=== PATIENT | male | born 1945 | race Caucasian/White ===

== ENCOUNTER 2017-07-21 09:59 | Day surgery (SDC) | payer MEDICARE, OTHER, SELFPAY ==
[2017-07-14 11:10] VITALS: BP 116/66; PULSE 55; RESP 17; TEMP 36.8; O2SAT 98; BMI 25.7
--- NOTE | 2017-07-14 11:36 | RAD_ITS ---
STUDY: X-RAY CHEST REASON FOR EXAM: Male, 72 years old. Preoperative evaluation. Hypertension. TECHNIQUE: PA and lateral views of the chest. COMPARISON: Comparison is made with prior study dated March 07, 2013. FINDINGS: Stable mild degree of increased markings at the left base suggestive of scarring. There is no demonstrated pleural abnormality. Normal size heart. Normal mediastinum and tonie. Normal visualized pulmonary arteries. There is atherosclerotic calcification of the aortic arch with tortuosity. Mild loss of height of a lower dorsal vertebrae. Normal visualized ribs, clavicles, and shoulders. There is no demonstrated abnormality of the visualized soft tissue structures of the upper abdomen. RAD/Chest PA and Lateral IMPRESSION: Findings suggestive of mild linear scarring at the left lung base. Electronically Signed: Saurav Cisneros MD at 12:36 EST Tel [phone], Service support ,
--- NOTE | 2017-07-14 11:36 | SDCEKG_ITS ---
Test Reason : Blood Pressure : / mmHG Vent. Rate : 057 BPM Atrial Rate : 057 BPM P-R Int : 138 ms QRS Dur : 102 ms QT Int : 410 ms P-R-T Axes : 069 006 014 degrees QTc Int : 399 ms Sinus bradycardia Otherwise normal ECG Confirmed by TAMI JONES, JIMMIE ([id number]), assistant film editor ROBERTO GARDNER ([id number]) on 07/20/2017 8:46:49 AM Referred By: Bong Ghotra Confirmed By:JIMMIE GARRETT MD
[2017-07-14 12:05] LABS: Color, Urine Yellow (Yellow); Glucose, Dipstick Normal (Normal); Ketone-Dipstick Negative (Negative); Leukocyte Esterase-Dipstick 25 /ul (Negative); Nitrite-Dipstick Negative (Negative); Occult Blood-Urine 10 /ul (Negative); Protein-Dipstick Negative (Negative); Urine Bilirubin Dipstick Negative (Negative); Urine Clarity Clear (Clear); Urine Urobilinogen Normal (Normal)
[2017-07-14 12:06] LABS: Hematocrit 41.9 % (40-54); Hemoglobin 14.2 g/dl (13.0-16.5); Mean Corp Hgb Conc 33.9 g/gl (32-36); Mean Corpuscular Hgb 31.2 pg (27.0-32.0); Mean Corpuscular Volume 92.1 fL (80-94); Mean Platelet Vol. 10.2 fl (6.2-12.0); Platelet Count 264 K/mm3 (150-450); RBC Distribution Width SD 43.1 fl (35.1-43.9); Red Blood Count 4.55 M/mm3 (4.6-6.2); White Blood Count 9.1 K/mm3 (4.4-11.0)
[2017-07-14 12:08] LABS: Scan Indicated on CBC? Y/N NO
[2017-07-14 12:32] LABS: AST(SGOT) 13 U/L (15-37); Alanine Aminotransfer ALT/SGPT 36 U/L (16-61); Albumin, Serum 3.6 g/dL (3.2-5.0); Alkaline Phosphatase 95 U/L (45-117); Anion Gap 6 (5-15); BUN 19 mg/dL (7-18); BUN/Creat Ratio 22.3 RATIO (10-20); Calcium,Total 8.9 mg/dL (8.5-10.1); Chloride 103 mmol/L (98-107); Creatinine, Serum 0.85 mg/dL (0.70-1.30); EST Glomerular Filtration Rate 93 mL/min (>60); Est Glom Filt Rate - Afr Amer 113 mL/min (>60); Estimated Creatinine Clearance 71.28 ml/min; Globulin 3.7 g/dL (2.2-4.2); Glucose 120 mg/dL (70-110); Potassium 3.7 mmol/L (3.5-5.1); Protein, Total 7.3 g/dL (6.4-8.2); Sodium Level 139 mmol/L (136-145)
[2017-07-21] VITALS (11 sets, daily range): BP systolic 114–148; BP diastolic 60–92; PULSE 70–84; RESP 16–18; TEMP 36.3–36.8; O2SAT 89–96; BMI 25.7; BMI 25.0
--- NOTE | 2017-07-21 11:55 | PROS_PTH ---
PATIENT: RYAN BARTH [place] [facility] [place][id number] AGE/SX: 72/M ROOM: RE07/21/[address]: Dr. Bong Ghotra MD : 1945 BED: DIS: 07/22/2017 SPEC #: [id number] RECD: 07/22/17 08:23 STATUS: MARTHA HALLLudmila #: [id number] CONG: 07/21/17 11:[address]: Bong Ghotra DEPT: SURGICAL PATHOLOGY RECD BY: Ac Thakur ENTERED: 07/22/17 11:39 SP TYPE: TURP OTHR DR: Dr. Aiden Alvarado MD Tissues: Prostate, NOS Procedures: Surgery Specimen Level IV HEADER OPERATION: Cysto, TUR, prostate, Olympus PRE-OP DIAGNOSIS: benign prostatic hyperplasia TISSUE SUBMITTED: Prostate chips MICROSCOPIC DIAGNOSIS Prostate chips, TUR: Benign prostatic hyperplasia, glandular and stromal type. Focal chronic inflammation and basal cell hyperplasia. SJ:annelise 07/23/17 MICROSCOPIC DESCRIPTION Slides are reviewed. GROSS DESCRIPTION Received is one container labeled with the patient's name and designated prostate chips. The specimen consists of multiple irregular fragments of pink-castillo, rubbery, soft tissue that in aggregate weigh 24.8 gm and measure in aggregate 8 x 7 x 3 cm. Territory Development Manager tissue is submitted in 12 cassettes. / MIGEL:annelise 07/22/17 TC:5 CPT: 37086
[2017-07-21] MEDS: Cefazolin 2 GM in 0.9% Normal Saline 100 ML IV (11:58)
--- NOTE | 2017-07-21 13:19 | PCM.OPRPT ---
Problem List (1) BPH (benign prostatic hyperplasia) Status: Chronic Qualifiers: Lower urinary tract symptom presence: symptoms present Lower urinary tract symptom detail: straining on urination Qualified Code(s): N40.1 - Benign prostatic hyperplasia with lower urinary tract symptoms; R39.16 - Straining to void Report of Operation Date of Procedure: 07/21/17 Pre-Operative Diagnosis: BPH with obstruction Post-Operative Diagnosis: same Surgery/Procedure Performed:: Transurethral resection of the prostate Description of Surgical Findings:: 72-year-old male taken back to the operating room after smooth induction of general anesthesia he was placed in dorsal lithotomy position penis and testicles were prepped and draped in usual sterile fashion I used a 26 Malt[place] continuous flow Olympus resectoscope had to dilate the meatus a little bit at the resectoscope into the bladder and findings were that he had a very significantly of obstructive prostate had a very large median lobe large bilateral lobes with obstruction no tumors or stones within the bladder I then switched the the loop electrode into the resectoscope resected the median lobe first resected the right lobe of the prostate and resect the left of the prostate and resected the roof then came back and resected the apical tissue Ellik out all the chips smooth out the resection made sure that I had a good resection down to the Brit with no resection past the Brit sphincter was intact at the end of the resection resection time took about an hour and 10 minutes had good hemostasis and good control bleeding at the end of the catheter the bladder and continues bladder irrigation nice and clear the patient anesthetic was reversed taken at the PACU in good condition should end the dictation Type of Anesthesia:: General Drains: farias - Admit VTE Documentation VTE Present on Admission: No VTE Mechan Device Prophylaxis: SCD's VTE Pharm Prophylaxis ordered?: No
[2017-07-21] MEDS: Ipratropium 0.5 MG/2.5 ML SOLUTION INHALATION (19:40)
[2017-07-21] MEDS: Ciprofloxacin 500 MG Tablet PO (21:10)
[2017-07-22 04:13] VITALS: BP 119/70; PULSE 73; RESP 18; TEMP 37.1; O2SAT 95
[2017-07-22] MEDS: 0.9% Normal Saline 1,000 ML 75 ML IV (04:19)
--- NOTE | 2017-07-22 07:35 | PCM.DC.URO ---
Discharge Diet: Light diet - advance as tolerated Discharge Activity: Return to Normal Activity May shower in (days): 1 Call your doctor if your incision/area has: Continuous Slow Oozing, Sudden Increased Bleeding, Increased Pain/ Swelling, Increased Redness, Foul Smelling Discharge, Swelling at the incision site Call your doctor if you observe: Fever of 101 or Higher Suture Line Care: Avoid Pulling/Pushing, Avoid Pinching/Bending Instructions: Transurethral Resection of the Prostate (TURP): Home Recovery Allergies/Adverse Reactions: Allergies Sulfa (Sulfonamide Antibiotics) Allergy (Verified 07/14/17 11:03) Unknown oxycodone HCl [From Percocet] Adverse Reaction (Verified 07/14/17 11:03) Other Medications to take at Discharge Finasteride [Proscar] 5 mg PO DAILY 03/13/13 Timolol 0.25% [Timoptic] 1 drop RIGHT EYE BID 03/13/13 Tiotropium [place] [Spiriva 18 MCG] 1 puff INHALATION DAILY 03/13/13 Atorvastatin Calcium [Lipitor] 40 mg PO QHS 11/15/16 Brimonidine Tartrate/Timolol [Combigan Eye Drops] 1 drop LEFT EYE BID 11/15/16 Hydrochlorothiazide [Hctz] 25 mg PO DAILY 11/15/16 Calcium Carbonate/Vitamin D3 [Calcium 500-Vit D3 200 Tablet] 2 each PO DAILY 07/14/17 Lisinopril [Prinivil] 40 mg PO DAILY 07/14/17 Multivitamins,Therapeutic [Multivitamin] 1 tablet PO DAILY 07/14/17 Tamsulosin HCl [Flomax] 0.4 mg PO DAILY 07/14/17 Ciprofloxacin [Cipro] 500 mg PO BID #14 tab 07/22/17 The following prescriptions were given: Ciprofloxacin [Cipro] 500 mg PO BID #14 tab Primary Care Physician: Aiden Alvarado MD [Primary Care Provider] - Please Follow Up With: Bong Ghotra MD When: Aug 05 at 8:45 am
--- NOTE | 2017-07-22 07:38 | DCINST_ITS ---
Discharge Diet: Light diet - advance as tolerated Discharge Activity: Return to Normal Activity May shower in (days): 1 Call your doctor if your incision/area has: Continuous Slow Oozing, Sudden Increased Bleeding, Increased Pain/ Swelling, Increased Redness, Foul Smelling Discharge, Swelling at the incision site Call your doctor if you observe: Fever of 101 or Higher Suture Line Care: Avoid Pulling/Pushing, Avoid Pinching/Bending Instructions: Transurethral Resection of the Prostate (TURP): Home Recovery Allergies/Adverse Reactions: Allergies Sulfa (Sulfonamide Antibiotics) Allergy (Verified 07/14/17 11:03) Unknown oxycodone HCl [From Percocet] Adverse Reaction (Verified 07/14/17 11:03) Other Medications to take at Discharge Finasteride [Proscar] 5 mg PO DAILY 03/13/13 Timolol 0.25% [Timoptic] 1 drop RIGHT EYE BID 03/13/13 Tiotropium [place] [Spiriva 18 MCG] 1 puff INHALATION DAILY 03/13/13 Atorvastatin Calcium [Lipitor] 40 mg PO QHS 11/15/16 Brimonidine Tartrate/Timolol [Combigan Eye Drops] 1 drop LEFT EYE BID 11/15/16 Hydrochlorothiazide [Hctz] 25 mg PO DAILY 11/15/16 Calcium Carbonate/Vitamin D3 [Calcium 500-Vit D3 200 Tablet] 2 each PO DAILY Lisinopril [Prinivil] 40 mg PO DAILY 07/14/17 Multivitamins,Therapeutic [Multivitamin] 1 tablet PO DAILY 07/14/17 Tamsulosin HCl [Flomax] 0.4 mg PO DAILY 07/14/17 Ciprofloxacin [Cipro] 500 mg PO BID #14 tab 07/22/17 The following prescriptions were given: Ciprofloxacin [Cipro] 500 mg PO BID #14 tab Primary Care Physician: Adien Alvarado MD [Primary Care Provider] - Please Follow Up With: Bong Ghotra MD When: Aug 05 at 8:45 am
[2017-07-22 07:56] VITALS: PULSE 87; RESP 18
[2017-07-22] MEDS: Ipratropium 0.5 MG/2.5 ML SOLUTION INHALATION (07:56)
[2017-07-22] MEDS: Calcium Carb/Vitamin D 1 TABLET Tablet 2 TABLET PO (08:53)
[2017-07-22] MEDS: Multivitamins,Therapeutic Tablet 1 TABLET PO (08:53)
[2017-07-22 09:00] VITALS: BP 155/81; PULSE 92; RESP 18; TEMP 37; O2SAT 95
[2017-07-22] MEDS: Ciprofloxacin 500 MG Tablet PO (09:01)
[2017-07-22] MEDS: Pantoprazole Sodium 40 MG Tablet PO (09:01)
[2017-07-22] MEDS: Docusate Sodium 100 MG Capsule PO (09:01)
[2017-07-22] MEDS: Lisinopril 40 MG Tablet PO (09:01)
[2017-07-22] MEDS: hydroCHLOROthiazide 25 MG Tablet PO (09:01)
== END 2017-07-22 11:04 | disposition home or self-care (01) ==
LOC: SDC 10:00 → AC 10:01 → MS3 14:19
PROVIDERS: Family Provider Family Medicine; PCP Family Medicine; Visit Provider Urology
PROC: (CPT 52630; principal; 2017-07-21 11:45)
DX: N40.1 Benign prostatic hyperplasia with lower urinary tract symptoms (principal); R39.11 Hesitancy of micturition; R33.8 Other retention of urine; R39.16 Straining to void; I10 Essential (primary) hypertension; J44.9 Chronic obstructive pulmonary disease, unspecified; E78.00 Pure hypercholesterolemia, unspecified; Z87.891 Personal history of nicotine dependence; Z79.899 Other long term (current) drug therapy
CPT/HCPCS: 52630; 80053; 81002; 85027; 88305; 94640; J7030; J7120; J2405

== ENCOUNTER 2019-10-09 17:35 | Emergency (ER) | payer MEDICARE, OTHER, SELFPAY ==
[2017-07-21 18:45] VITALS: BMI 25.0
[2019-10-09 17:35] VITALS: BP 155/73; PULSE 81; RESP 18; TEMP 36.6; O2SAT 97; BMI 33.3
--- NOTE | 2019-10-09 17:49 | ED.VIS.GEN ---
History of Present Illness Chief Complaint: Laceration Informant: Patient Onset: Today Context: Sudden Onset Timing: Continuous Current Severity: Moderate Maximum Severity: Moderate Narrative: The patient is a cvizm-gvpa-rpxdcrlo male with up-to-date tetanus that presents to the emergency department with foreign body in his arm. Patient states he was doing work in his garden. He was using heavy machinery and he lost his balance. He try to catch himself with an outstretched right hand, and ended up getting some wood chips embedded into his arm. He was seen at the urgent care and they were able to remove 2 chips. However, there was one that was more deep. He denies any tingling or numbness in the hand. He denies other injury. He is otherwise been in his normal state of health. Prior similar symptoms: No Recent Illness/Hospitalization: No Past Medical History - Allergies and Home Meds Allergies/Adverse Reactions: Allergies Sulfa (Sulfonamide Antibiotics) Allergy (Verified 10/09/19 17:38) Unknown oxycodone HCl [From Percocet] Adverse Reaction (Verified 10/09/19 17:38) Other Primary Care Physician: Aiden Alvarado MD [Primary Care Provider] - Prior records reviewed: Yes Surgical History: adenoidectomy Smoking Status: Former smoker Review of Systems General: Denies: Chills, Fever, Sweats Eyes: Denies: Visual changes - bilaterally, Diplopia ENT: Denies: Rhinorrhea, Sore throat Cardiovascular: Denies: Chest pain, Palpitations Respiratory: Denies: Dyspnea, Cough, Dyspnea on exertion Gastrointestinal: Denies: Abdominal pain, Nausea, Vomiting, Diarrhea, Melena, Hematochezia Genitourinary: Denies: Dysuria, Hematuria, Frequency Musculoskeletal: Denies: Back pain, Extremity Pain Skin: Denies: Rash, Wounds Neurological: Denies: Headache, Weakness, Numbness Physical Exam Vital Signs/Narrative: Vital Signs Temp Pulse Resp BP Pulse Ox 10/09/19 17:35 97.8 F 81 18 155/73 H 97 Diagnostic/Tx/Re-eval - Medical Decision Making The patient presents retained foreign body in the forearm after a fall. He was sent over from urgent care. His tetanus is already up-to-date. He has normal pulses and sensation in the hand. The area was cleansed with chlorhexidine. It was anesthetized with 4 cc of 1% lidocaine with epinephrine. The wound was explored under bloodless field. I was able to remove the 2 cm fragment of wood. The wound was aggressively irrigated and reexplored. There is no evidence of retained foreign body. The patient will be placed on Keflex. He is counseled that if this is worsening or he has any increased pain or no improvement over the next 24 to 48 hours to return to the emergency department. I would not close this given the retained foreign body. He is comfortable with this plan of care. Impression 1. 2 cm forearm laceration 2. Foreign body removal from right forearm ED Disposition - Plan for ED Patient: Instructions: ED Foreign Body Soft Tissue Removed, ED Laceration Old Not Sutr Prescriptions: Cephalexin [Keflex] 500 mg PO Q6 #40 cap Prescription Printed Referrals: Aiden Alvarado MD [Primary Care Provider] -
[2019-10-09] MEDS: Cephalexin 250 MG Capsule 500 MG PO (18:33)
== END 2019-10-09 18:34 | disposition home or self-care (01) ==
LOC: ED 18:20
PROVIDERS: Emergency Provider Emergency Medicine; PCP Family Medicine
DX: S51.821A Laceration with foreign body of right forearm, initial encounter (principal); Z87.891 Personal history of nicotine dependence; W26.8XXA Contact with other sharp object(s), not elsewhere classified, initial encounter; W45.8XXA Other foreign body or object entering through skin, initial encounter; Y93.H2 Activity, gardening and landscaping; Y92.007 Garden or yard of unspecified non-institutional (private) residence as the place of occurrence of the external cause; Y99.8 Other external cause status
CPT/HCPCS: 99284

== ENCOUNTER 2021-08-21 16:25 | Emergency (ER) | payer MEDICARE, OTHER, SELFPAY ==
[2021-08-21 16:26] VITALS: BP 129/68; PULSE 81; RESP 16; TEMP 36.3; O2SAT 97; BMI 27.0
[2021-08-21 16:32] VITALS: BP 129/68; PULSE 80; RESP 16; TEMP 36.3; O2SAT 97
--- NOTE | 2021-08-21 16:41 | EX.ED.DYSGE1 ---
HPI History of Present Illness Chief Complaint: Alt LOC Detail of Chief Complaint: Increase to altered consciousness and aggressive behavior Informant: SNF Limited: dementia (Normally orientation is 0 or person only) Onset/Context/Timing Onset: Today Context: Sudden Onset Timing: Intermittent Quality: Patient is polite. Able to direct easily. Location: Presents from nursing facility Current Severity: Patient cooperative and follows simple requests that were made by me and nu Maximum Severity: Unknown Worsened by: Unknown Relieved by: Unknown Associated Symptoms Associated Symptoms: Unable to determine Narrative Narrative: Patient is a 76-year-old male with significant dementia who was sent to the emergency department because of aggressive behavior and altered level of consciousness. He is normally oriented to person only at best. At times he does not even know his name. Patient's thought content is not related to any questions asked. Per documentation that accompanied patient from nursing facility this is not abnormal or new. Prior similar symptoms: No (Unable to determine) Recent Illness/Hospitalization: No [facility] Medical History (Updated 08/21/21 @ 17:[address] Bridger Rodriguez MD) Abnormal findings on diagnostic imaging of heart/coronary circulation Basal cell carcinoma (BCC) of antihelix of ear Benign neoplasm of colon Benign prostatic hyperplasia with lower urinary tract symptoms Bursitis of right shoulder Carpal tunnel syndrome, left upper limb Chronic bronchitis COPD (chronic obstructive pulmonary disease) Dementia Diverticulitis large intestine w/o perforation or abscess w/bleeding Essential hypertension Falls Gastrointestinal hemorrhage Glaucoma Hyperlipemia Mild cognitive impairment Restlessness and agitation Home Medications atorvastatin 40 mg PO QHS 11/15/16 [History Last Taken Unknown] brimonidine-timolol [Combigan Eye Drops] 1 drp LEFT EYE BID 11/15/16 [History Last Taken Unknown] lisinopril [Prinivil] 40 mg PO DAILY 07/14/17 [History Last Taken 07/21/17] amlodipine 5 mg PO DAILY 08/21/21 [History Last Taken Unknown] citalopram 10 mg PO DAILY 08/21/21 [History Last Taken Unknown] donepezil mg 08/21/21 [History Last Taken Unknown] lorazepam 0.5 mg PO DAILY PRN PRN 08/21/21 [History Last Taken Unknown] Allergy/AdvReac Type Severity Reaction Status Date / Time Sulfa (Sulfonamide Allergy Unknown Verified 08/21/21 16:59 Antibiotics) oxycodone HCl [From Percocet] AdvReac Other Verified 08/21/21 16:59 Social History (Updated 08/21/21 @ 16:[address] Bridger Rodriguez MD) household members: none housing: shelter Smoking Status: Unknown if ever smoked details: Unable to determine substance use type: unknown ROS ROS ED Review of Systems ROS Unobtainable: due to mental status EXAM Physical Exam Const Vital Signs: 08/21/21 16:26 08/21/21 16:32 Temperature 97.3 F L 97.3 F L Temperature Source Temporal Temporal Pulse Rate 81 80 Respiratory Rate 16 16 Blood Pressure 129/68 H 129/68 H Blood Pressure Mean 88 88 Pulse Ox 97 97 Oxygen Delivery Method Room Air Room Air Positive well nourished and well developed General Appearance ED: well developed, NAD and other Pain and has feces lower back buttocks area both lower extremities and covering his shoes ; Negative for pallor HEENT Reports TM's clear and dry mucous membranes Negative for trauma or tenderness Tympanic Membrane ED: Yes TM's clear Mouth ED: Yes dry mucous membranes Mouth: dry mucous membranes Eyes PERRL and EOMs intact bilaterally General Eye ED: Negative for pale conjunctiva or scleral icterus Neck no lymphadenopathy, supple and no JVD Chest Wall inspection of chest normal and palpation of chest normal Resp normal respiratory effort and clear to auscultation bilaterally Cardio regular rate, regular rhythm, S1 normal heart sound, S2 normal heart sound and no murmurs GI normal to inspection, nondistended, normoactive bowel sounds and non-tender Palpation: soft Back/Spine no CVA tenderness Extremity Negative for normal to inspection General Extremety ED: Yes edema; Negative for tenderness General Extremity: edema Neuro No oriented x3 and CN's II-XII intact bilaterally Sensorium / Orientation: alert Psych mental status grossly normal Skin General Skin Exam: Negative for jaundice or pallor MDM MDM MDM Narrative Medical decision making narrative: Contacted case management regarding potential psychiatric care in light of him being DNR comfort care only. There is a signed document from the nursing facility that he is DNR comfort care only not DNR Comfort Care arrest. Patient presently is pleasant cooperative. And since he is covered with feces and this is not normal for him we will do a small metabolic infectious work-up which will include a CBC, electrolyte panel and UA to determine if this is the cause of his altered sensorium from baseline. Patient's was in the examination room. She was informed of his results. Patient is very polite cooperative. He shook my hand with prior to walking out of the room. Since there is no metabolic infectious abnormality and patient's been pleasant polite cooperative will discharge back to the nursing facility. Lab Data Attestation: I reviewed the patient's lab results. Lab results narrative: White count, H&H and differential are unremarkable. Neutrophil percent is 76 which is slightly elevated. Basic metabolic panel visit elevated CO2, which she has had in the past and would not explain his behavior. Would expect somnolence and not him being alert and responsive. Urinalysis is unremarkable as well. Labs: Laboratory Results - last 24 hr 08/21/21 08/21/21 08/21/21 16:40 16:40 16:45 WBC 9.6 RBC 4.30 L Hgb 13.1 Hct 39.9 L MCV 92.8 MCH 30.5 MCHC 32.8 RDW Std Deviation 45.8 H RDW Coeff of Jj 13.5 Plt Count 261 MPV 10.7 Immature Gran % (Auto) 0.400 Neut % (Auto) 76.3 H Lymph % (Auto) 7.9 L Weld % (Auto) 7.5 Eos % (Auto) 7.5 H Baso % (Auto) 0.4 Absolute Neuts (auto) 7.4 Absolute Lymphs (auto) 0.76 L Nucleated RBC % 0 Sodium 140 Potassium 3.9 Chloride 102 Carbon Dioxide 35.0 H Anion Gap 3 L BUN 16 Creatinine 0.87 Estim Creat Clear Calc 60.87 Est GFR (MDRD) Af Amer 109 Est GFR (MDRD) Non-Af 90 BUN/Creatinine Ratio 18.4 Glucose 113 H Calcium 8.5 Urine Color Yellow Urine Clarity Clear Urine pH 6.0 Ur Specific [place] 1.020 Urine Protein Negative Urine Glucose (UA) Normal Urine Ketones Negative Urine Occult Blood Negative Urine Nitrite Negative Urine Bilirubin Negative Urine Urobilinogen Normal Ur Leukocyte Esterase Negative Urine RBC 0 SEEN Urine WBC 0 SEEN Ur Squamous Epith Cells 0-5 SEEN Urine Bacteria 0 SEEN Urine Mucus 0 SEEN Discharge Plan Triage Chief Complaint: Alt LOC ED Provider: Bridger Rodriguez Dx/Rx/DC Orders Clinical Impression: Acute on chronic alteration in mental status, Dementia Instructions: ED ALOC Prescriptions: No Action atorvastatin 40 MG tablet 40 mg PO QHS RF: 0 brimonidine-timolol [Combigan] 1 DROP bottle 1 drp Left Eye BID RF: 0 lisinopril [Prinivil] 10 MG tablet 40 mg PO DAILY RF: 0 amlodipine 5 mg tablet 5 mg PO DAILY RF: 0 citalopram 10 mg tablet 10 mg PO DAILY RF: 0 donepezil 10 mg tablet RF: 0 lorazepam 0.5 mg tablet 0.5 mg PO DAILY PRN PRN (Reason: Agitation) RF: 0 Primary Care Provider: Loren Major Referrals: Loren Major MD [Primary Care Provider] - As Needed Disposition Disposition: Custodial Facility
[2021-08-21 16:51] LABS: Absolute Lymphocyte Count 0.76 X10^3/uL (0.83-4.51); Absolute Neutrophil Count 7.4 X10^3/uL (2.0-7.7); Basophil# 0.04 X10^3/uL; Basophil% 0.4 % (0-1); Eosinophil# 0.72 X10^3/uL; Eosinophils% 7.5 % (0-5); Hematocrit 39.9 % (40-54); Hemoglobin 13.1 g/dL (13.0-16.5); Lymphocyte # 0.76 X10^3/ul (0.83-4.51); Lymphocyte % 7.9 % (19-41); Mean Corp Hgb Conc 32.8 g/dL (32-36); Mean Corpuscular Hgb 30.5 pg (27.0-32.0); Mean Corpuscular Volume 92.8 fL (80-94); Mean Platelet Vol. 10.7 fl (6.2-12.0); Monocyte# 0.72 X10^3/uL; Monocyte% 7.5 % (0-10); NRBC Flagged by Analyzer 0 % (0-5); Neutrophil # 7.35 X10^3/uL (2.7-7.7); Neutrophil % 76.3 % (47-70); Platelet Count 261 K/mm3 (150-450); RBC Distribution Width CV 13.5 % (11.6-14.6); RBC Distribution Width SD 45.8 fl (35.1-43.9); White Blood Count 9.6 K/mm3 (4.4-11.0)
[2021-08-21 16:54] LABS: Bacteria 0 SEEN /hpf (None Seen); Mucous, Urine 0 SEEN /hpf (<or=2+); Red Blood Cells-Urine 0 SEEN /hpf (0-5); White Blood Cells 0 SEEN /hpf (0-5)
[2021-08-21 16:57] LABS: Color, Urine Yellow (Yellow); Glucose, Dipstick Normal (Normal); Ketone-Dipstick Negative (Negative); Leukocyte Esterase-Dipstick Negative /ul (Negative); Nitrite-Dipstick Negative (Negative); Occult Blood-Urine Negative /ul (Negative); Protein-Dipstick Negative (Negative); Urine Bilirubin Dipstick Negative (Negative); Urine Clarity Clear (Clear); Urine Urobilinogen Normal (Normal)
[2021-08-21 17:03] LABS: Squamous Epithelial Cells - UA 0-5 SEEN /hpf (0-5)
[2021-08-21 17:08] LABS: Anion Gap 3 (5-15); BUN 16 mg/dL (7-18); BUN/Creat Ratio 18.4 RATIO (10-20); Calcium,Total 8.5 mg/dL (8.5-10.1); Chloride 102 mmol/L (98-107); Creatinine, Serum 0.87 mg/dL (0.70-1.30); EST Glomerular Filtration Rate 90 mL/min (>60); Est Glom Filt Rate - Afr Amer 109 mL/min (>60); Estimated Creatinine Clearance 60.87 ml/min; Glucose 113 mg/dL (74-106); Potassium 3.9 mmol/L (3.5-5.1); Sodium Level 140 mmol/L (136-145)
--- NOTE | 2021-08-21 17:36 | NURSING ---
CALLED [facility], ETA 90 MIN
--- NOTE | 2021-08-21 17:40 | CM.ED ---
LV called [facility] and spoke to admissions staff regarding if they could take a patient for psych that is DNRCC. Staff at [facility] advised that they do take patient's with DNR CC. advised. Patient is unable to be interviewed due to current dementia. Patient has been calm and cooperative while in the ED per MD. LV called [facility] and spoke to BELIA Herrera. Advised patient has been calm at the ED and we are sending him back in approximately 90 minutes. Carmen BRODERICK
[2021-08-21 18:36] VITALS: BP 148/81; PULSE 62; RESP 16; TEMP 36.4; O2SAT 95
[2021-08-21 18:37] VITALS: BP 148/81; PULSE 77; RESP 16; TEMP 36.6; O2SAT 95
== END 2021-08-21 18:50 | disposition skilled nursing facility (03) ==
PROVIDERS: Emergency Provider Emergency Medicine; PCP Family Medicine; Visit Provider Emergency Medicine
DX: R40.4 Transient alteration of awareness (principal); F03.90 Unspecified dementia, unspecified severity, without behavioral disturbance, psychotic disturbance, mood disturbance, and anxiety; I10 Essential (primary) hypertension; E78.5 Hyperlipidemia, unspecified; Z79.899 Other long term (current) drug therapy
CPT/HCPCS: 80048; 81001; 85025; 99284; A4216

== ENCOUNTER → 2021-08-22 | Outpatient (REF) | payer MEDICARE, OTHER, SELFPAY ==
[2021-08-22 07:56] LABS: Hematocrit 36.7 % (40-54); Hemoglobin 11.9 g/dL (13.0-16.5); Mean Corp Hgb Conc 32.4 g/dL (32-36); Mean Corpuscular Hgb 29.5 pg (27.0-32.0); Mean Corpuscular Volume 91.1 fL (80-94); Mean Platelet Vol. 10.6 fl (6.2-12.0); Platelet Count 253 K/mm3 (150-450); RBC Distribution Width CV 13.6 % (11.6-14.6); RBC Distribution Width SD 45.6 fl (35.1-43.9); Red Blood Count 4.03 M/mm3 (4.6-6.2); White Blood Count 6.4 K/mm3 (4.4-11.0)
[2021-08-22 08:07] LABS: AST(SGOT) 13 U/L (15-37); Alanine Aminotransfer ALT/SGPT 17 U/L (16-61); Albumin, Serum 3.4 g/dL (3.2-5.0); Alkaline Phosphatase 112 U/L (45-117); Anion Gap 3 (5-15); BUN 13 mg/dL (7-18); BUN/Creat Ratio 16.2 RATIO (10-20); Calcium,Total 8.9 mg/dL (8.5-10.1); Chloride 107 mmol/L (98-107); Cholesterol 105 mg/dL (200); EST Glomerular Filtration Rate 99 mL/min (>60); Est Glom Filt Rate - Afr Amer 120 mL/min (>60); Globulin 3.5 g/dL (2.2-4.2); Glucose 105 mg/dL (74-106); High Density Lipoprotein 43 mg/dL; Potassium 3.7 mmol/L (3.5-5.1); Protein, Total 6.9 g/dL (6.4-8.2); Sodium Level 142 mmol/L (136-145); Triglycerides 42 mg/dL; Very Low Density Lipoprotein 8 mg/dL (5-40)
== END | disposition home or self-care (01) ==
LOC: OLS.BROOKB 05:00
PROVIDERS: PCP Family Medicine; Visit Provider Family Medicine
DX: I10 Essential (primary) hypertension (principal)
CPT/HCPCS: 36415; 80053; 80061; 85027

== ENCOUNTER 2021-09-02 09:25 | Emergency (ER) | payer MEDICARE, OTHER, SELFPAY ==
[2021-09-02 09:26] VITALS: BP 142/76; PULSE 72; RESP 21; TEMP 36.3; O2SAT 98; BMI 27.1
--- NOTE | 2021-09-02 09:28 | CT_ITS ---
STUDY: CT BRAIN WITHOUT CONTRAST REASON FOR EXAM: Male, 76 years old. Fall RADIATION DOSAGE (If Supplied By Facility): CTDIvol = ( 44.99 ) mGy, DLP = ( 812.98 ) mGycm TECHNIQUE: Transaxial CT imaging of the brain was performed without administration of intravenous contrast material. Individualized dose optimization techniques were used for this CT. COMPARISON: Comparison is made with prior study dated 03/07/2013. FINDINGS: Normal soft tissue structures. Normal calvarium. There is disproportionate enlargement of the lateral and third ventricles, as compared to the extra-axial spaces. The findings suggest normal pressure hydrocephalus (NPH). There are areas of decreased attenuation within the white matter tracts of the supratentorial brain, consistent with microvascular disease changes. Normal basal ganglia and thalami. Normal brainstem. There is mild cerebellar atrophy. There is no intracranial hemorrhage. There are no findings of an acute ischemic infarction. Atherosclerotic calcification of the cavernous portions of the internal carotid arteries bilaterally. Normal visualized paranasal sinuses. CT/Brain/Head without Contrast IMPRESSION: Findings suggestive of normal pressure hydrocephalus. Electronically Signed: Saurav Cisneros MD at 9:53 EDT ,
--- NOTE | 2021-09-02 09:30 | ED.VIS.FALL ---
HPI HPI - Fall History of Present Illness Chief Complaint: Fall Narrative Narrative: [facility] with reported mental status change status post fall. Of note, he has past medical history of dementia. He is usually alert and oriented x0-1. EMS states that he was sitting up and was falling over. They state that RNs situated him upright, and when they returned to the room, he was standing and had a fall. There was no loss of consciousness. He does not take blood thinners. However, they state that he has been acting more confused since then. EMS reported that he was leaning to the right. Upon their arrival, they state that he had his head down and was less responsive. [facility] Medical History Abnormal findings on diagnostic imaging of heart/coronary circulation Basal cell carcinoma (BCC) of antihelix of ear Benign neoplasm of colon Benign prostatic hyperplasia with lower urinary tract symptoms Bursitis of right shoulder Carpal tunnel syndrome, left upper limb Chronic bronchitis COPD (chronic obstructive pulmonary disease) Dementia Diverticulitis large intestine w/o perforation or abscess w/bleeding Essential hypertension Falls Gastrointestinal hemorrhage Glaucoma Hyperlipemia Mild cognitive impairment Restlessness and agitation Home Medications atorvastatin 40 mg PO QHS 11/15/16 [History Last Taken Unknown] brimonidine-timolol [Combigan Eye Drops] 1 drp LEFT EYE BID 11/15/16 [History Last Taken Unknown] lisinopril [Prinivil] 40 mg PO DAILY 07/14/17 [History Last Taken 07/21/17] amlodipine 5 mg PO DAILY 08/21/21 [History Last Taken Unknown] citalopram 10 mg PO DAILY 08/21/21 [History Last Taken Unknown] donepezil mg 08/21/21 [History Last Taken Unknown] lorazepam 0.5 mg PO DAILY PRN PRN 08/21/21 [History Last Taken Unknown] Allergy/AdvReac Type Severity Reaction Status Date / Time Sulfa (Sulfonamide Allergy Unknown Verified 09/02/21 09:33 Antibiotics) oxycodone HCl [From Percocet] AdvReac Other Verified 09/02/21 09:33 Social History household members: none housing: prison Smoking Status: Unknown if ever smoked details: Unable to determine substance use type: unknown ROS ROS ED ROS Narrative History and physical is limited secondary to patient's dementia Constitutional: No fever, no chills. HEENT: No sore throat. No neck pain. No loss of vision. No rhinorrhea. Cardiovascular: No chest pain. No palpitations. No pedal edema. Respiratory: No cough, no shortness of breath. Abdominal: No abdominal pain. No nausea. No vomiting. Genitourinary: No dysuria. No hematuria. Musculoskeletal: No myalgias. No arthralgias. Neurologic: No headaches. No dizziness. No lightheadedness. Skin: No rash. No change in color. Psychiatric: No depression. No anxiety. EXAM Physical Exam Narrative Exam Narrative: Afebrile. Vital signs noted. HEENT: Normocephalic. Atraumatic. PERRL, EOMI. Neck soft and supple. No point tenderness or step off. Cardiovascular: Regular rate and rhythm. No murmurs, rubs, or gallops appreciated. Respiratory: No tachypnea. Lungs clear to auscultation bilaterally. Gastrointestinal: Abdomen soft, nontender, with normoactive bowel sounds. No rebound or guarding. Neurological: Awake. Alert. Oriented to person. Nonfocal, nonlateralizing. Moves all extremities. According to the RN who saw him last week, at baseline. Redirectable. Skin: No rash. Normal color. No pallor. Musculoskeletal: No pedal edema. Full range of motion extremities. Const Vital Signs: 09/02/21 09:26 Temperature 97.3 F L Temperature Source Temporal Pulse Rate 72 Respiratory Rate 21 H Blood Pressure 142/76 H Blood Pressure Mean 98 Pulse Ox 98 Oxygen Delivery Method Room Air MDM MDM MDM Narrative Medical decision making narrative: Patient is a DNR comfort care only. I will obtain a CT of his brain. I do feel that he has more of a postconcussive syndrome that is resolving. CT of the brain shows no acute hemorrhage or skull fracture. At this point in time, I feel he can be discharged safely back given his DNR status. His is at the bedside. I do feel he may have postconcussive syndrome. I do not feel that any further testing is indicated as he is DO NOT RESUSCITATE comfort care only. Disposition is discharged to [facility]. He is in stable condition. Radiography Diagnostic Testing: Clinical Impression(s) from Imaging Studies Brain CT 09/02/21 09:28 IMPRESSION: Findings suggestive of normal pressure hydrocephalus. Electronically Signed: Saurav Cisneros MD at 9:53 EDT , Discharge Plan Triage Chief Complaint: Fall ED Provider: Giovanni Fiore Dx/Rx/DC Orders Clinical Impression: Fall, Concussion, DNR (do not resuscitate) Instructions: ED Concussion, ED Head Injury (Adult), ED Fall Prevention Prescriptions: No Action atorvastatin 40 MG tablet 40 mg PO QHS RF: 0 brimonidine-timolol [Combigan] 1 DROP bottle 1 drp Left Eye BID RF: 0 lisinopril [Prinivil] 10 MG tablet 40 mg PO DAILY RF: 0 amlodipine 5 mg tablet 5 mg PO DAILY RF: 0 citalopram 10 mg tablet 10 mg PO DAILY RF: 0 donepezil 10 mg tablet RF: 0 lorazepam 0.5 mg tablet 0.5 mg PO DAILY PRN PRN (Reason: Agitation) RF: 0 Primary Care Provider: Td Rhodes Referrals: Td Rhodes MD [Primary Care Provider] - As soon as possible Disposition Disposition: [facility] Discharge Location: [facility]
[2021-09-02 10:56] VITALS: BP 125/54; PULSE 67; RESP 17; O2SAT 96
== END 2021-09-02 10:57 | disposition skilled nursing facility (03) ==
PROVIDERS: Emergency Provider Emergency Medicine; PCP Family Medicine; Visit Provider Emergency Medicine
DX: S06.0X0A Concussion without loss of consciousness, initial encounter (principal); F03.90 Unspecified dementia, unspecified severity, without behavioral disturbance, psychotic disturbance, mood disturbance, and anxiety; W19.XXXA Unspecified fall, initial encounter; Z66 Do not resuscitate
CPT/HCPCS: 70450; 99284

== ENCOUNTER → 2021-10-01 | Outpatient (REF) | payer MEDICARE, OTHER, SELFPAY ==
[2021-10-01 08:45] LABS: Absolute Lymphocyte Count 1.33 X10^3/uL (0.83-4.51); Absolute Neutrophil Count 3.6 X10^3/uL (2.0-7.7); Basophil# 0.05 X10^3/uL; Basophil% 0.6 % (0-1); Eosinophils% 31.2 % (0-5); Hematocrit 36.2 % (40-54); Lymphocyte # 1.33 X10^3/ul (0.83-4.51); Lymphocyte % 15.8 % (19-41); Mean Corp Hgb Conc 33.1 g/dL (32-36); Mean Corpuscular Hgb 30.7 pg (27.0-32.0); Mean Corpuscular Volume 92.6 fL (80-94); Mean Platelet Vol. 11.1 fl (6.2-12.0); Monocyte# 0.82 X10^3/uL; Monocyte% 9.7 % (0-10); NRBC Flagged by Analyzer 0 % (0-5); Neutrophil # 3.59 X10^3/uL (2.7-7.7); Neutrophil % 42.5 % (47-70); POSITIVE DIFFERENTIAL YES; Platelet Count 238 K/mm3 (150-450); RBC Distribution Width CV 13.5 % (11.6-14.6); Red Blood Count 3.91 M/mm3 (4.6-6.2); White Blood Count 8.4 K/mm3 (4.4-11.0)
[2021-10-01 08:55] LABS: Anion Gap 8 (5-15); BUN 16 mg/dL (7-18); BUN/Creat Ratio 22.7 RATIO (10-20); Calcium,Total 8.4 mg/dL (8.5-10.1); Chloride 104 mmol/L (98-107); EST Glomerular Filtration Rate 115 mL/min (>60); Est Glom Filt Rate - Afr Amer 139 mL/min (>60); Glucose 74 mg/dL (74-106); Potassium 3.8 mmol/L (3.5-5.1); Sodium Level 141 mmol/L (136-145)
[2021-10-01 09:11] LABS: Differential Indicated SCAN CRITERIA MET; Eosinophil# 2.63 X10^3/uL
[2021-10-01 09:12] LABS: Differential Comment SCANNED
[2021-10-01 09:28] LABS: BNP,B-Type NATRIURETIC PEPTIDE 136.8 pg/mL (0-100)
[2021-10-01 13:52] LABS: Pathologist Review Reviewed
== END | disposition home or self-care (01) ==
LOC: OLS.BROOKB 05:00
PROVIDERS: PCP Family Medicine; Visit Provider Registered Nurse
DX: J44.9 Chronic obstructive pulmonary disease, unspecified (principal); R05.8 Other specified cough; R60.9 Edema, unspecified
CPT/HCPCS: 36415; 80048; 83880; 85025

== ENCOUNTER 2021-10-13 15:40 | Emergency (ER) | payer MEDICARE, OTHER, SELFPAY ==
[2021-10-13 15:41] VITALS: BP 121/64; PULSE 63; RESP 18; TEMP 36.4; O2SAT 96; BMI 27.0
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
[2021-10-13 16:21] LABS: Absolute Lymphocyte Count 1.68 X10^3/uL (0.83-4.51); Basophil# 0.05 X10^3/uL; Basophil% 0.6 % (0-1); Eosinophil# 1.05 X10^3/uL; Eosinophils% 11.9 % (0-5); Hematocrit 40.8 % (40-54); Hemoglobin 13.2 g/dL (13.0-16.5); Lymphocyte # 1.68 X10^3/ul (0.83-4.51); Mean Corp Hgb Conc 32.4 g/dL (32-36); Mean Corpuscular Hgb 30.8 pg (27.0-32.0); Mean Corpuscular Volume 95.3 fL (80-94); Mean Platelet Vol. 10.5 fl (6.2-12.0); Monocyte% 11.3 % (0-10); NRBC Flagged by Analyzer 0 % (0-5); Neutrophil # 5.02 X10^3/uL (2.7-7.7); Neutrophil % 56.6 % (47-70); Platelet Count 259 K/mm3 (150-450); RBC Distribution Width CV 13.2 % (11.6-14.6); RBC Distribution Width SD 46.1 fl (35.1-43.9); Red Blood Count 4.28 M/mm3 (4.6-6.2); White Blood Count 8.9 K/mm3 (4.4-11.0)
[2021-10-13 16:40] LABS: ALB/GLOB Ratio 0.9 RATIO (0.9-2.4); AST(SGOT) 12 U/L (15-37); Alanine Aminotransfer ALT/SGPT 19 U/L (16-61); Albumin, Serum 3.5 g/dL (3.2-5.0); Alkaline Phosphatase 127 U/L (45-117); Anion Gap 3 (5-15); BUN 15 mg/dL (7-18); BUN/Creat Ratio 15.5 RATIO (10-20); Calcium,Total 8.9 mg/dL (8.5-10.1); Chloride 103 mmol/L (98-107); Creatinine, Serum 0.97 mg/dL (0.70-1.30); EST Glomerular Filtration Rate 80 mL/min (>60); Est Glom Filt Rate - Afr Amer 97 mL/min (>60); Globulin 3.7 g/dL (2.2-4.2); Glucose 123 mg/dL (74-106); Protein, Total 7.2 g/dL (6.4-8.2); Sodium Level 140 mmol/L (136-145)
[2021-10-13 17:05] LABS: Bacteria 0 SEEN /hpf (None Seen); Mucous, Urine 0 SEEN /hpf (<or=2+); Red Blood Cells-Urine 0 SEEN /hpf (0-5); Squamous Epithelial Cells - UA 0 SEEN /hpf (0-5); White Blood Cells 0 SEEN /hpf (0-5)
[2021-10-13 17:15] LABS: Color, Urine Yellow (Yellow); Glucose, Dipstick Normal (Normal); Ketone-Dipstick Negative (Negative); Leukocyte Esterase-Dipstick Negative /ul (Negative); Nitrite-Dipstick Negative (Negative); Occult Blood-Urine 10 /ul (Negative); Protein-Dipstick Negative (Negative); Urine Bilirubin Dipstick Negative (Negative); Urine Clarity Clear (Clear); Urine Urobilinogen Normal (Normal)
--- NOTE | 2021-10-13 18:15 | CM.ED ---
Addendum entered by Carmen Martinez 10/13/21 18:37: MD Duarte agrees with this story writer that patient's symptoms are consistent with dementia diagnosis. Carmen BRODERICK Original Note: SW Note SW met with patient while he was waiting for transport. Patient had difficult time answering any questions such as what his job was and what car he had liked to drive? Patient was becoming restless and also agitated. Patient given water and cookie and advised transport was coming. Again, these symptoms were consistent with his dementia diagnosis. Plan is for patient to return to [place]. Plan: Return to [place] Carmen BRODERICK
== END 2021-10-13 18:44 | disposition skilled nursing facility (03) ==
PROVIDERS: Emergency Provider Emergency Medicine; PCP Family Medicine; Visit Provider Emergency Medicine
DX: F03.91 Unspecified dementia, unspecified severity, with behavioral disturbance (principal); J44.9 Chronic obstructive pulmonary disease, unspecified; I10 Essential (primary) hypertension; E78.5 Hyperlipidemia, unspecified; N40.1 Benign prostatic hyperplasia with lower urinary tract symptoms; Z79.899 Other long term (current) drug therapy
CPT/HCPCS: 36415; 80053; 81001; 85025; 99285; P9612

== ENCOUNTER → 2021-10-15 | Outpatient (REF) | payer MEDICARE, OTHER, SELFPAY ==
[2021-10-15 08:55] LABS: Anion Gap 4 (5-15); BUN 17 mg/dL (7-18); BUN/Creat Ratio 20.3 RATIO (10-20); Calcium,Total 8.6 mg/dL (8.5-10.1); Chloride 103 mmol/L (98-107); Creatinine, Serum 0.84 mg/dL (0.70-1.30); EST Glomerular Filtration Rate 94 mL/min (>60); Est Glom Filt Rate - Afr Amer 114 mL/min (>60); Glucose 94 mg/dL (74-106); Potassium 3.7 mmol/L (3.5-5.1); Sodium Level 139 mmol/L (136-145)
== END | disposition home or self-care (01) ==
LOC: OLS.BROOKB 04:00
PROVIDERS: PCP Family Medicine; Referring Provider Family Medicine; Visit Provider Family Medicine
DX: I10 Essential (primary) hypertension (principal)
CPT/HCPCS: 36415; 80048

== ENCOUNTER 2021-12-18 21:54 | Emergency (ER) | payer MEDICARE, OTHER, SELFPAY ==
[2021-12-18 22:01] VITALS: BP 112/58; PULSE 78; RESP 18; TEMP 37.2; O2SAT 94; BMI 24.7
[2021-12-18 22:28] VITALS: BMI 24.7
--- NOTE | 2021-12-18 22:35 | CT_ITS ---
EXAM: CT HEAD WITHOUT INTRAVENOUS CONTRAST CLINICAL INDICATION: altered mental status TECHNIQUE: Multiple axial images were obtained of the head without intravenous contrast. This CT exam was performed using one or more of the following dose reduction techniques: automated exposure control, adjustment of the mA and/or kV according to patient size, and/or use of iterative reconstruction technique. This report was created using [employer] report generation technology. COMPARISON: 09/02/2021 FINDINGS: BRAIN AND EXTRA-AXIAL SPACES: Diffuse cerebral volume loss. Periventricular small vessel ischemic changes. No intra- or extra-axial hemorrhage. No intracranial mass or mass effect. Posterior fossa structures are unremarkable. No hydrocephalus. Basal cisterns are patent. BONES/JOINTS: Unremarkable. No discrete lytic or blastic abnormalities. VASCULATURE: Vascular calcifications. SINUSES: Unremarkable as visualized. Clear. MASTOID AIR CELLS: Unremarkable. Clear. ORBITS: Visualized globes, extraocular muscles, optic nerves and retrobulbar fat appear unremarkable. CT/Brain/Head without Contrast IMPRESSION: 1. No acute intracranial abnormalities. 2. Age-related changes. Electronically Signed: Vince Dubon MD at 23:54 EDT ,
--- NOTE | 2021-12-18 22:36 | EKG12_ITS ---
Test Reason : DYSRHYTHMIA Blood Pressure : / mmHG Vent. Rate : 082 BPM Atrial Rate : 082 BPM P-R Int : 128 ms QRS Dur : 112 ms QT Int : 378 ms P-R-T Axes : 069 -09 047 degrees QTc Int : 441 ms Sinus rhythm with marked sinus arrhythmia Incomplete left bundle branch block Confirmed by ORLANDO JONES, ADAMA ([id number]), assignment desk editor NIEVES MATA ([id number]) on 12/20/2021 9:20:58 AM Referred By: HOMA Confirmed By:ADAMA PERRY MD
--- NOTE | 2021-12-18 22:38 | EX.ED.DYSGE1 ---
HPI History of Present Illness Chief Complaint: Neuro S/Sx Informant: spouse/S.O. and EMS Onset/Context/Timing Onset: Today Narrative Narrative: Last normal last night prior to bed, patient was found by [facility] staff today to be fatigued and dysarthria. Timing is unknown. He usually gets up and around, but he has been in his wheelchair all day today. states that the [facility] states that he had some blood in his urine today, at 1 point he complained of chest discomfort. He chronically is aphasic, severely demented, and is a DNR comfort care only. He is not on hospice. [facility] Medical History Abnormal findings on diagnostic imaging of heart/coronary circulation Basal cell carcinoma (BCC) of antihelix of ear Benign neoplasm of colon Benign prostatic hyperplasia with lower urinary tract symptoms Bursitis of right shoulder Carpal tunnel syndrome, left upper limb Chronic bronchitis COPD (chronic obstructive pulmonary disease) Dementia Diverticulitis large intestine w/o perforation or abscess w/bleeding Essential hypertension Falls Gastrointestinal hemorrhage Glaucoma Hyperlipemia Mild cognitive impairment Restlessness and agitation Home Medications atorvastatin 40 mg tablet 40 mg PO QHS CHOLESTEROL 11/15/16 [History Last Taken Unknown] lorazepam 0.5 mg tablet 0.5 mg PO DAILY PRN PRN Agitation 08/21/21 [History Last Taken Unknown] furosemide 20 mg tablet 40 mg PO DAILY 10/13/21 [History Last Taken Unknown] loperamide 2 mg capsule 2 mg PO PRN PRN Diarrhea 10/13/21 [History Last Taken Unknown] menthol 0.44 %-zinc oxide 20.6 % topical ointment (Calmoseptine) applic topical 10/13/21 [History Last Taken Unknown] clopidogrel 75 mg tablet 75 mg PO DAILY 12/18/21 [History Last Taken Unknown] diltiazem HCl 180 mg capsule,extended release 24 hr (Cardizem CD) 180 mg PO DAILY 12/18/21 [History Last Taken Unknown] ferrous fumarate 325 mg (106 mg iron) tablet 325 mg PO DAILY 12/18/21 [History Last Taken Unknown] insulin lispro protamine-lispro 100 unit/mL (75-25) subcutaneous pen (Humalog Mix 75-25 KwikPen) 10 unit subcut BID 12/18/21 [History Last Taken Unknown] mirtazapine 7.5 mg tablet 7.5 mg PO QHS 12/18/21 [History Last Taken Unknown] omeprazole 20 mg tablet,delayed release 20 mg PO DAILY 12/18/21 [History Last Taken Unknown] ciprofloxacin HCl 500 mg tablet 500 mg PO BID #14 TABLETS 12/19/21 [Rx Last Taken Unknown] Allergy/AdvReac Type Severity Reaction Status Date / Time Sulfa (Sulfonamide Allergy Unknown Verified 12/18/21 22:13 Antibiotics) oxycodone HCl [From Percocet] AdvReac Other Verified 12/18/21 22:13 Social History household members: none housing: [facility] Smoking Status: Former smoker details: Unable to determine substance use type: unknown ROS ROS ED Review of Systems ROS Unobtainable: due to mental status EXAM Physical Exam Const Vital Signs: 12/18/21 22:01 12/18/21 23:09 Temperature 99.0 F Temperature Source Temporal Pulse Rate 78 77 Respiratory Rate 18 18 Blood Pressure 112/58 L 111/45 L Blood Pressure Mean 76 67 Pulse Ox 94 95 Oxygen Delivery Method Room Air Room Air Positive well nourished and well developed General Appearance ED: well developed and NAD HEENT Reports moist mucous membranes normocephalic and atraumatic Eyes PERRL and EOMs intact bilaterally Neck full ROM and supple Resp normal respiratory effort and clear to auscultation bilaterally Cardio regular rate and regular rhythm Rate: Negative for tachycardic GI non-tender and non-distended Auscultation: normoactive bowel sounds Palpation: soft Back/Spine no CVA tenderness General Back: other FROM Extremity normal to inspection General Extremety ED: Negative for edema, pulses abnormal or tenderness General Extremity: Negative for edema or pulses abnormal Neuro CN's II-XII intact bilaterally and no sensory deficits noted Neuro Narrative: Initially lethargic, alerted easily to voice. Is moving all 4 extremities nonlateralizing, symmetrically weak. Does not resist gravity at all with both of his legs, is able to partially resist gravity with both of his arms, difficult to tell if he understands to exert effort or not. Not oriented to person, place, time. Only speech he uses is expletives but he does so very clearly. He does not answer questions. NIH Stroke Scale/Score (NIHSS) from [email or web address] on 12/18/2021 All calculations should be rechecked by clinician prior to use RESULT SUMMARY: 17 points NIH Stroke Scale INPUTS: 1A: Level of consciousness ?> 1 = Arouses to minor stimulation 1B: Ask month and age ?> 2 = 0 questions right 1C: 'Blink eyes' & 'squeeze hands' ?> 2 = Performs 0 tasks 2: Horizontal extraocular movements ?> 0 = Normal 3: Visual nagel ?> 0 = No visual loss 4: Facial palsy ?> 0 = Normal symmetry 5A: Left arm motor drift ?> 2 = Some effort against gravity 5B: Right arm motor drift ?> 2 = Some effort against gravity 6A: Left leg motor drift ?> 3 = No effort against gravity 6B: Right leg motor drift ?> 3 = No effort against gravity 7: Limb Ataxia ?> 0 = No ataxia 8: Sensation ?> 0 = Normal; no sensory loss 9: Language/aphasia ?> 2 = Severe aphasia: fragmentary expression, inference needed, cannot identify materials 10: Dysarthria ?> 0 = Normal 11: Extinction/inattention ?> 0 = No abnormality Sensorium / Orientation: awake, alert and orientation impaired Motor Exam: general weakness Psych Psych Narrative: Limited evaluation Skin no rashes or lesions noted and no wounds MDM MDM MDM Narrative Medical decision making narrative: Patient does have a leukocytosis as well as an abnormal urine consistent with infection. This was sent for culture in addition to blood cultures, I gave him a dose of Rocephin, I do not think he needs to be admitted since he is DNR comfort care, will send him back to the [facility], he is able to swallow pills. I did see the radiologist x-ray interpretation. I do not think we need to do further work-up in this patient who has severe dementia and is DNR comfort care. Lab Data Attestation: I reviewed the patient's lab results. Labs: Laboratory Results - last 24 hr 12/18/21 12/18/21 12/18/21 22:43 22:43 23:00 WBC 20.7 H RBC 4.50 L Hgb 13.8 Hct 42.1 MCV 93.6 MCH 30.7 MCHC 32.8 RDW Std Deviation 44.1 H RDW Coeff of Jj 12.9 Plt Count 225 MPV 11.8 Immature Gran % (Auto) 0.800 Neut % (Auto) 86.5 H Lymph % (Auto) 4.5 L [place] % (Auto) 7.8 Eos % (Auto) 0.2 Baso % (Auto) 0.2 Absolute Neuts (auto) 17.9 H Absolute Lymphs (auto) 0.94 Nucleated RBC % 0 Differential Comment SCANNED Diff Path Review May foll Sodium 136 Potassium 3.7 Chloride 99 Carbon Dioxide 30.0 Anion Gap 7 BUN 17 Creatinine 0.96 Estim Creat Clear Calc 57.23 Est GFR (MDRD) Af Amer 98 Est GFR (MDRD) Non-Af 81 BUN/Creatinine Ratio 17.8 Glucose 123 H Calcium 9.4 Troponin I High Sens 16 Urine Color Sima Urine Clarity Cloudy Urine pH 6.0 Ur Specific [place] 1.020 Urine Protein 100 H Urine Glucose (UA) Normal Urine Ketones 15 H Urine Occult Blood 250 H Urine Nitrite Positive H Urine Bilirubin Negative Urine Urobilinogen 1 H Ur Leukocyte Esterase 500 H Urine RBC 25-50 SEEN Urine WBC >100 SEEN Ur Squamous Epith Cells 0 SEEN Urine Bacteria 2+ Urine Mucus 0 SEEN Radiography Chest X-Ray - ED: 1 View, Read by ED Physician and No Infiltrates Diagnostic Testing: Clinical Impression(s) from Imaging Studies Brain CT 12/18/21 22:35 IMPRESSION: 1. No acute intracranial abnormalities. 2. Age-related changes. Electronically Signed: Vince Dubon MD at 23:54 EDT Reading Location ID and State: [facility] / [place] Tel , Service support , Chest X-Ray 12/18/21 23:30 IMPRESSION: No evidence of pneumothorax, pneumonia or pleural effusion. New right paramediastinal opacity at the apex. Faint oval opacity right lower lateral lung at the level of the right anterior seventh rib. This may be due to patient rotation and projection. However CT chest with IV contrast recommended to exclude right upper mediastinal or right apical mass and right lower lung nodule both of which are possible. Electronically Signed: Ed Rayo MD at 0:13 EDT Reading Location ID and State: [facility] / [place] Tel , Service support , Rhythm Strip Rhythm Strip: Sinus Rhythm Rate: 80 Ectopy: None EKG Initial EKG: Attestation: I personally reviewed and interpreted this EKG as follows: Interpretation: Sinus Rhythm and No Acute Injury Pattern Discharge Plan Triage Chief Complaint: Neuro S/Sx ED Provider: Gibson Marroquin Dx/Rx/DC Orders Clinical Impression: Urinary tract infection, Dementia Instructions: ED Bladder Infection, Male (Adult) Prescriptions: New ciprofloxacin HCl [ciprofloxacin HCl] 500 mg tablet 500 mg PO BID Qty: 14 0RF No Action atorvastatin 40 MG tablet 40 mg PO QHS lorazepam 0.5 mg tablet 0.5 mg PO DAILY PRN PRN (Reason: Agitation) loperamide 2 mg capsule 2 mg PO PRN PRN (Reason: Diarrhea) furosemide 20 mg tablet 40 mg PO DAILY Label Comments: take 1 tablet by mouth once daily menthol-zinc oxide [Calmoseptine] 0.44-20.6 % Ointment TOPICAL diltiazem HCl [Cardizem CD] 180 mg Capsule,Extended Release 24hr 180 mg PO DAILY clopidogrel 75 mg Tablet 75 mg PO DAILY insulin lispro protamin-lispro [Humalog Mix 75-25 KwikPen] 100 unit/mL (75-25) Insulin Pen 10 unit SUBCUT BID mirtazapine 7.5 mg Tablet 7.5 mg PO QHS omeprazole 20 mg Tablet,Delayed Release (Dr/Ec) 20 mg PO DAILY ferrous fumarate 325 mg (106 mg iron) Tablet 325 mg PO DAILY Primary Care Provider: Loren Major Referrals: Loren Major MD [Primary Care Provider] - 3-5 Days (For reevaluation and culture results) Disposition Disposition: Home, Self Care
[2021-12-18 23:05] LABS: Absolute Lymphocyte Count 0.94 X10^3/uL (0.83-4.51); Absolute Neutrophil Count 17.9 X10^3/uL (2.0-7.7); Basophil# 0.04 X10^3/uL; Basophil% 0.2 % (0-1); Eosinophil# 0.05 X10^3/uL; Eosinophils% 0.2 % (0-5); Hematocrit 42.1 % (40-54); Hemoglobin 13.8 g/dL (13.0-16.5); Lymphocyte # 0.94 X10^3/ul (0.83-4.51); Lymphocyte % 4.5 % (19-41); Mean Corp Hgb Conc 32.8 g/dL (32-36); Mean Corpuscular Hgb 30.7 pg (27.0-32.0); Mean Corpuscular Volume 93.6 fL (80-94); Mean Platelet Vol. 11.8 fl (6.2-12.0); Monocyte# 1.62 X10^3/uL; Monocyte% 7.8 % (0-10); NRBC Flagged by Analyzer 0 % (0-5); Neutrophil # 17.88 X10^3/uL (2.7-7.7); Neutrophil % 86.5 % (47-70); POSITIVE DIFFERENTIAL YES; Platelet Count 225 K/mm3 (150-450); RBC Distribution Width CV 12.9 % (11.6-14.6); RBC Distribution Width SD 44.1 fl (35.1-43.9); White Blood Count 20.7 K/mm3 (4.4-11.0)
[2021-12-18 23:09] VITALS: BP 111/45; PULSE 77; RESP 18; O2SAT 95
[2021-12-18 23:18] LABS: Mucous, Urine 0 SEEN /hpf (<or=2+); Squamous Epithelial Cells - UA 0 SEEN /hpf (0-5)
[2021-12-18 23:19] LABS: Color, Urine Amber (Yellow); Glucose, Dipstick Normal (Normal); Ketone-Dipstick 15 mg/dl (Negative); Leukocyte Esterase-Dipstick 500 /ul (Negative); Nitrite-Dipstick Positive (Negative); Occult Blood-Urine 250 /ul (Negative); Protein-Dipstick 100 mg/dl (Negative); Urine Bilirubin Dipstick Negative (Negative); Urine Clarity Cloudy (Clear); Urine Urobilinogen 1 mg/dl (Normal)
[2021-12-18 23:22] LABS: Anion Gap 7 (5-15); BUN 17 mg/dL (7-18); BUN/Creat Ratio 17.8 RATIO (10-20); Calcium,Total 9.4 mg/dL (8.5-10.1); Chloride 99 mmol/L (98-107); Creatinine, Serum 0.96 mg/dL (0.70-1.30); EST Glomerular Filtration Rate 81 mL/min (>60); Est Glom Filt Rate - Afr Amer 98 mL/min (>60); Estimated Creatinine Clearance 57.23 ml/min; Glucose 123 mg/dL (74-106); Potassium 3.7 mmol/L (3.5-5.1); Sodium Level 136 mmol/L (136-145); Troponin-I HS 16 pg/mL (3.0-78.0)
[2021-12-18 23:29] LABS: Bacteria 2+ /hpf (None Seen); Red Blood Cells-Urine 25-50 SEEN /hpf (0-5); White Blood Cells >100 SEEN /hpf (0-5)
--- NOTE | 2021-12-18 23:30 | RAD_ITS ---
STUDY: X-RAY CHEST REASON FOR EXAM: Male, 76 years old. Fever and chest pain. Slurred speech. TECHNIQUE: AP COMPARISON: 07/14/2017 CXR FINDINGS: New right paramediastinal opacity at the apex. Faint oval opacity right lower lateral lung at the level of the right anterior seventh rib. No evidence of pneumothorax, pneumonia or pleural effusion. Underlying emphysema otherwise similar to prior. Heart size within normal limits. Atherosclerosis thoracic aorta. Hilar contours not significantly changed. RAD/Chest 1 View (Portable) IMPRESSION: No evidence of pneumothorax, pneumonia or pleural effusion. New right paramediastinal opacity at the apex. Faint oval opacity right lower lateral lung at the level of the right anterior seventh rib. This may be due to patient rotation and projection. However CT chest with IV contrast recommended to exclude right upper mediastinal or right apical mass and right lower lung nodule both of which are possible. Electronically Signed: Ed Rayo MD at 0:13 EDT Reading Location ID and State: [facility] / [place] Tel , Service support ,
[2021-12-18 23:33] LABS: Differential Indicated SCAN CRITERIA MET
[2021-12-19 00:20] LABS: Differential Comment SCANNED
[2021-12-19] MEDS: Ceftriaxone 1 GM/50 ML BAG IV (00:33)
[2021-12-19 01:10] VITALS: BP 112/60; PULSE 78; RESP 18; O2SAT 96
[2021-12-19] MEDS: Ciprofloxacin 500 MG Tablet PO (01:15)
--- NOTE | 2021-12-22 09:30 | ED.RN ---
THIS RN CALLED PRESCRIPTION TO [facility] PER LEANN REQUEST. RX WAS INITIALLY CALLED INTO [facility], SIMI CALLED BACK AND LEFT MSG TO CANCEL THAT PRESCRIPTION. SPOKE TO PHARMACIST AT [facility] AND PRESCRIPTION TO BE FILLED THERE. LEANN NOTIFIED OF [facility] AND THEY STATE THEY WILL CONTACT THE TO PSYCHIATRIC TECH THE MEDICATION
[2021-12-22 09:59] LABS: Pathologist Review Reviewed
== END 2021-12-19 02:10 | disposition home or self-care (01) ==
PROVIDERS: Emergency Provider Emergency Medicine; PCP Family Medicine; Visit Provider Emergency Medicine
DX: N39.0 Urinary tract infection, site not specified (principal); F03.90 Unspecified dementia, unspecified severity, without behavioral disturbance, psychotic disturbance, mood disturbance, and anxiety; Z79.4 Long term (current) use of insulin; E78.5 Hyperlipidemia, unspecified; Z79.899 Other long term (current) drug therapy; Z87.891 Personal history of nicotine dependence
CPT/HCPCS: 36415; 70450; 71045; 80048; 81001; 84484; 85025; 87040; 87086; 87088; 87186; 87428; 93005; 96361; 96365; 99285; J7030; P9612; A4216

== ENCOUNTER 2022-01-19 11:06 | Inpatient (IN) | payer MEDICARE, OTHER, SELFPAY ==
[2022-01-19 11:08] VITALS: BP 130/66; PULSE 69; RESP 18; TEMP 36.7; O2SAT 93; BMI 24.6
--- NOTE | 2022-01-19 11:48 | EDS_ITS ---
HPI History of Present Illness HPI Narrative: Patient presents after a fall that occurred today. Patient fell at the extended care facility where he lives. Patient fell backwards and hit his right elbow area on a table. Patient has a skin tear over this area. is unsure of the patient's last tetanus. Patient also complains of pain in his right lower extremity. EMS was unable to straighten the extremity due to pain. Patient denies any paresthesias or weakness. Patient is a poor historian due to de mentia. Chief Complaint: Lower Extremity Injury Informant: patient Occured/Mechanism Mechanism/Context: Yes fall and Yes same level fall Onset/Context/Timing Onset: Today Context: Sudden Onset Timing: Continuous Quality of Pain: Aching Location: Right lower extremity Worsened by: Certain movements Relieved by: Rest Associated Symptoms Associated Symptoms: Negative for Parasthesia, Weakness or Loss of Funtion [facility] Medical History Abnormal findings on diagnostic imaging of heart/coronary circulation Basal cell carcinoma (BCC) of antihelix of ear Benign neoplasm of colon Benign prostatic hyperplasia with lower urinary tract symptoms Bursitis of right shoulder Carpal tunnel syndrome, left upper limb Chronic bronchitis COPD (chronic obstructive pulmonary disease) Dementia Diverticulitis large intestine w/o perforation or abscess w/bleeding Essential hypertension Falls Gastrointestinal hemorrhage Glaucoma Hyperlipemia Mild cognitive impairment Restlessness and agitation Home Medications furosemide 20 mg tablet 40 mg PO DAILY edema 10/13/21 [History Last Taken Unknown] loperamide 2 mg capsule 2 mg PO DAILY diarrhea 10/13/21 [History Last Taken Unknown] brimonidine 0.2 %-timolol 0.5 % eye drops (Combigan) 1 drp BID left eye 01/19/22 [History Last Taken Unknown] citalopram 10 mg tablet 10 mg PO DAILY depression 01/19/22 [History Last Taken Unknown] lisinopril 20 mg tablet 20 mg PO DAILY bp 01/19/22 [History Last Taken Unknown] lorazepam 0.5 mg tablet 0.5 mg PO Q6H restlessness 01/19/22 [History Last Taken Unknown] melatonin 5 mg tablet 5 mg PO QHS sleep 01/19/22 [History Last Taken Unknown] potassium chloride 20 mEq tablet,extended release 20 meq PO DAILY supplement 01/19/22 [History Last Taken Unknown] risperidone 0.5 mg tablet 0.5 mg PO QHS behavior 01/19/22 [History Last Taken Unknown] Allergy/AdvReac Type Severity Reaction Status Date / Time Sulfa (Sulfonamide Allergy Unknown Verified 01/19/22 11:17 Antibiotics) oxycodone HCl [From Percocet] AdvReac Other Verified 01/19/22 11:17 Family History (Updated 01/19/22 @ 14:[address] Heather Gallagher MD) Mother COPD (chronic obstructive pulmonary disease) Father COPD (chronic obstructive pulmonary disease) Surgical History Status post tonsillectomy and adenoidectomy Social History household members: none housing: alf Smoking Status: Former smoker details: Unable to determine substance use type: unknown ROS ROS ED Review of Systems ROS Unobtainable: due to mental condition EXAM Physical Exam Const Vital Signs: 01/19/22 11:08 01/19/22 13:07 Temperature 98.0 F Temperature Source Temporal Pulse Rate 69 Respiratory Rate 18 18 Blood Pressure 130/66 H Blood Pressure Mean 87 Pulse Ox 93 Oxygen Delivery Method Room Air Positive well nourished and well developed General Appearance ED: well developed and NAD HEENT Reports moist mucous membranes Neck full ROM and supple Resp normal respiratory effort and clear to auscultation bilaterally Cardio regular rate and regular rhythm GI non-tender and non-distended Auscultation: normoactive bowel sounds Palpation: soft Extremity Extremity Narrative: There is tenderness over the right knee and hip area. There is edema of the right lower leg. There is no ecchymosis. There is no obvious deformity. There is a very superficial abrasion over the anterior aspect of the right knee. Range of motion was limited in all motions of the right lower extremity secondary to pain. Sensation was intact to light touch in all digits. Capillary refills less than 2 seconds in all digits. Pedal pulses are equal bilaterally. Neuro CN's II-XII intact bilaterally and no sensory deficits noted Sensorium / Orientation: alert Skin Trauma: abrasion MDM MDM MDM Narrative Medical decision making narrative: Patient was given a dose of tramadol here. Patient was given a tetanus booster. X-rays of the right hip were obtained. There are 4 views. On my interpretation, there is an intertrochanteric fracture and avulsion of the lesser tuberosity. Radiologist also interpreted the x-ray and agrees. X-ray of the right knee was obtained. There are 3 views. On my interpretation, there are degenerative changes noted. There is no acute fracture. There is a chronic nondisplaced fracture of the right patella. There is no effusion. Radiologist also interpreted the x-ray and agrees. X-rays of the right foot were obtained. There are 2 views. On my interpretation, there is no acute fracture or dislocation. Radiologist also interpreted the x-rays and agrees. X-rays of the right ankle were obtained. There are 3 views. On my interpretation, there is no acute fracture or dislocation. There is no soft tissue swelling. Radiolog ist also interpreted the x-rays and agrees. Portable chest x-ray was obtained and is pending. Basic labs and EKG were ordered and are pending. Case was discussed with the hospitalist. She will admit the patient to her service. Patient and family understood and were agreeable with plan. All questions were answered. Case was discussed with Dr. Gonzalez from orthopedics. He recommended placing the patient in a knee immobilizer for his old patella fracture. He will follow along with the patient for surgical fixation of the hip fracture. Lab Data Labs: Laboratory Results - last 24 hr 01/19/22 01/19/22 01/19/22 14:42 14:42 14:42 WBC 11.4 H RBC 4.13 L Hgb 12.5 L Hct 38.1 L MCV 92.3 MCH 30.3 MCHC 32.8 RDW Std Deviation 44.7 H RDW Coeff of Jj 13.2 Plt Count 214 MPV 10.5 Immature Gran % (Auto) 0.700 Neut % (Auto) 87.3 H Lymph % (Auto) 4.6 L Harney % (Auto) 5.2 Eos % (Auto) 1.9 Baso % (Auto) 0.3 Absolute Neuts (auto) 9.9 H Absolute Lymphs (auto) 0.52 L Nucleated RBC % 0 Platelet Estimate ADEQUATE RBC Morphology N CYTIC PT 13.8 INR 1.1 APTT 28.9 Sodium 137 Potassium 3.7 Chloride 103 Carbon Dioxide 29.0 Anion Gap 5 BUN 11 Creatinine 0.71 Estim Creat Clear Calc 54.94 Est GFR (MDRD) Af Amer 139 Est GFR (MDRD) Non-Af 115 BUN/Creatinine Ratio 15.6 Glucose 124 H Calcium 8.8 Magnesium Total Bilirubin 0.70 AST 14 L ALT 16 Alkaline Phosphatase 85 Total Protein 6.6 Albumin 3.2 Globulin 3.4 Albumin/Globulin Ratio 0.9 01/19/22 01/19/22 14:42 14:42 WBC RBC Hgb Hct MCV MCH MCHC RDW Std Deviation RDW Coeff of Jj Plt Count MPV Immature Gran % (Auto) Neut % (Auto) Lymph % (Auto) Harney % (Auto) Eos % (Auto) Baso % (Auto) Absolute Neuts (auto) Absolute Lymphs (auto) Nucleated RBC % Platelet Estimate RBC Morphology PT INR APTT Sodium Cancelled Potassium Cancelled Chloride Cancelled Carbon Dioxide Cancelled Anion Gap Cancelled BUN Cancelled Creatinine Cancelled Estim Creat Clear Calc Cancelled Est GFR (MDRD) Af Amer Cancelled Est GFR (MDRD) Non-Af Cancelled BUN/Creatinine Ratio Cancelled Glucose Cancelled Calcium Cancelled Magnesium 2.0 Total Bilirubin Cancelled AST Cancelled ALT Cancelled Alkaline Phosphatase Cancelled Total Protein Cancelled Albumin Cancelled Globulin Cancelled Albumin/Globulin Ratio Cancelled Radiography X-Ray: Right Hip, Read by ED Physician, Read by Radiologist and Fracture Diagnostic Testing: Clinical Impression(s) from Imaging Studies Foot X-Ray 01/19/22 11:52 IMPRESSION: No definite acute displaced fracture identified in the right foot with limited evaluation laterally due to overlying material. Electronically Signed: Cassy Ya MD at 13:26 EDT , Hip/Pelvis X-Ray 01/19/22 11:52 IMPRESSION: Right intertrochanteric fracture and avulsion of the lesser tuberosity. Electronically Signed: Tu Mims MD at 13:09 EDT , Knee X-Ray 01/19/22 11:52 IMPRESSION: Chronic nondisplaced fracture of the right patella. Electronically Signed: Cassy Ya MD at 13:27 EDT , Ankle X-Ray 01/19/22 12:30 IMPRESSION: Limited evaluation for nondisplaced fracture of the distal right fibula due to artifact from overlying material. Electronically Signed: Cassy Ya MD at 13:15 EDT , Chest X-Ray 01/19/22 14:44 IMPRESSION: Mild right apical opacity again seen. Consider follow-up or CT to assess for focal infection or mass. Electronically Signed: Cassy Ya MD at 15:11 EDT , EKG Initial EKG: Attestation: I personally reviewed and interpreted this EKG as follows: Interpretation: Sinus Rhythm (90 with occasional PVCs) and Non-Specific ST Changes Prior EKG tracings: available for review Prior: Unchanged (12/18/2021) Discharge Plan Dx/Rx/DC Orders Clinical Impression: Closed intertrochanteric fracture of right hip, Chronic obstructive lung disease Disposition Disposition: Acute Care Hospital [facility] Discharge Date/Time: 01/19/22 15:36
--- NOTE | 2022-01-19 11:52 | RAD_ITS ---
HISTORY: Injury/Pain. TECHNIQUE: XR Knee 1 or 2 Views. COMPARISON: 03/21/2013. FINDINGS: BONES : Chronic comminuted nondisplaced fracture of the patella. Generalized osteopenia. JOINTS: No dislocation. Degenerative change. SOFT TISSUES: Soft tissue swelling. RAD/Knee 1 or 2 Views IMPRESSION: Chronic nondisplaced fracture of the right patella. Electronically Signed: Cassy Ya MD at 13:27 EDT ,
--- NOTE | 2022-01-19 11:52 | RAD_ITS ---
HISTORY: Injury/Pain. TECHNIQUE: XR Foot 2 Views. COMPARISON: None. FINDINGS: BONES : No acute displaced fracture identified. Limited evaluation of the lateral foot due to overlying material. Generalized osteopenia. Mild calcaneal enthesopathy. JOINTS: No dislocation. Degenerative change. SOFT TISSUES: Soft tissue swelling of the ankle to mid foot. RAD/Foot 2 Views IMPRESSION: No definite acute displaced fracture identified in the right foot with limited evaluation laterally due to overlying material. Electronically Signed: Cassy Ya MD at 13:26 EDT ,
--- NOTE | 2022-01-19 11:52 | RAD_ITS ---
STUDY: X-RAY - PELVIS AND RIGHT HIP REASON FOR EXAM: Right leg pain, fell today. Injury/Pain TECHNIQUE: 2 views of the pelvis and hip. COMPARISON: None. FINDINGS: There is mild vascular calcification. Normal bilateral iliac wings, sacroiliac joints and visualized sacrum. Normal bilateral superior and inferior pubic rami. Normal pubic symphysis. Normal bilateral ischial tuberosities. There is a nondisplaced intertrochanteric fracture and a mildly displaced avulsion fracture of the lesser tuberosity. Normal acetabulum. Normal hip joint. RAD/HIP, UNI W/ Pelvis 2-3 Views IMPRESSION: Right intertrochanteric fracture and avulsion of the lesser tuberosity. Electronically Signed: Tu Mims MD at 13:09 EDT ,
--- NOTE | 2022-01-19 12:30 | RAD_ITS ---
HISTORY: Injury/Pain. TECHNIQUE: XR Ankle Min 3 Views. COMPARISON: None. FINDINGS: BONES : Limited evaluation for nondisplaced distal fibular fracture due to overlying material. JOINTS: No dislocation. Mild degenerative change. SOFT TISSUES: Diffuse soft tissue swelling. Joint effusion. Peripheral vascular disease. RAD/Ankle min 3 Views IMPRESSION: Limited evaluation for nondisplaced fracture of the distal right fibula due to artifact from overlying material. Electronically Signed: Cassy Ya MD at 13:15 EDT ,
[2022-01-19] MEDS: traMADol 50 MG Tablet PO (12:47)
[2022-01-19] MEDS: Diphth,Pertuss(Acell),Tet Vac 0.5 ML Vial IM (12:48)
[2022-01-19 13:07] VITALS: RESP 18
--- NOTE | 2022-01-19 14:18 | EKG12_ITS ---
Test Reason : dysrhythmia Blood Pressure : / mmHG Vent. Rate : 090 BPM Atrial Rate : 090 BPM P-R Int : 134 ms QRS Dur : 108 ms QT Int : 380 ms P-R-T Axes : 074 -02 061 degrees QTc Int : 464 ms Sinus rhythm with occasional Premature ventricular complexes Nonspecific ST abnormality Abnormal ECG Confirmed by TAMI JONES, JIMMIE ([id number]), news editor REYMUNDO CHAUHAN ([id number]) on 01/20/2022 9:23:58 AM Referred By: Confirmed By:JIMMIE GARRETT MD
--- NOTE | 2022-01-19 14:38 | PCM.HP.STD ---
HPI - General General Date of Admission: 01/19/22 Date of Service: 01/19/22 Chief Complaint: Fall, R hip and RLE pain. HPI Narrative The patient is a 76 y/o M w/ PMHx: Anxiety and Depression, COPD, Recovered Alcoholic in remission, Former tobacco use, BPH, Hx GI bleed, HTN, HLD, Hx Colon CA s/p polypectomy potentially but no extensive surgery per discussion with , Dementia unclear type with reported restlessness/agitation behavioral impairment with associated cognitive impairment who presents to the [facility] ED on 01/19/22 with history of mechanical fall at his ECF noted to have fall backwards, hitting his right elbow on the table and potentially landing on his RLE with inability to straighten the extremity or bear weight secondary to pain prompting ED evaluation. In the ED he is unable to recall events or even note any pain with severe evidence dementia. Discussed his status with his who requested intervention as soon as possible given his underlying dementia with continued DNR-CC status but amenable to surgery for his pain control. Discussed his risk and she understands with his history he certainly is a higher risk for perioperative events but she prefers no further aggressive pre-operative evaluations given this his only for his comfort. Work-up in the ED included T 98, heart rate 69, BP 130/66, respiratory rate 16, 93% on room air, plain film of the right ankle with a limited evaluation for nondisplaced fracture of the distal right fibula secondary to artifact from overlying material, plain film of the right knee with chronic nondisplaced fracture of the right patella, plain film of the right hip and pelvis with a right intertrochanteric fracture and avulsion of the lesser tuberosity, plain film of the right foot with no definitive acute displaced fracture notified within the right foot, EKG w/ SR without occasional PVC without any acute evidence of ischemia. ED discussed case with Dr. Gonzalez and he was also contacted following evaluation of patient following discussions with family with planned OR 01/20/22. [facility] Medical History (Updated 01/19/22 @ 20:[address] Heather Gallagher MD) Abnormal findings on diagnostic imaging of heart/coronary circulation Basal cell carcinoma (BCC) of antihelix of ear Benign neoplasm of colon Benign prostatic hyperplasia with lower urinary tract symptoms Chronic bronchitis COPD (chronic obstructive pulmonary disease) Dementia Essential hypertension Former tobacco use Glaucoma Hyperlipemia Mild cognitive impairment Recovering alcoholic in remission Restlessness and agitation Home Medications furosemide 20 mg tablet 40 mg PO DAILY edema 10/13/21 [History Last Taken Unknown] loperamide 2 mg capsule 2 mg PO DAILY diarrhea 10/13/21 [History Last Taken Unknown] brimonidine 0.2 %-timolol 0.5 % eye drops (Combigan) 1 drp BID left eye 01/19/22 [History Last Taken Unknown] citalopram 10 mg tablet 10 mg PO DAILY depression 01/19/22 [History Last Taken Unknown] lisinopril 20 mg tablet 20 mg PO DAILY bp 01/19/22 [History Last Taken Unknown] lorazepam 0.5 mg tablet 0.5 mg PO Q6H restlessness 01/19/22 [History Last Taken Unknown] melatonin 5 mg tablet 5 mg PO QHS sleep 01/19/22 [History Last Taken Unknown] potassium chloride 20 mEq tablet,extended release 20 meq PO DAILY supplement 01/19/22 [History Last Taken Unknown] risperidone 0.5 mg tablet 0.5 mg PO QHS behavior 01/19/22 [History Last Taken Unknown] Allergy/AdvReac Type Severity Reaction Status Date / Time Sulfa (Sulfonamide Allergy Unknown Verified 01/19/22 11:17 Antibiotics) oxycodone HCl [From Percocet] AdvReac Other Verified 01/19/22 11:17 Family History (Updated 01/19/22 @ 14:[address] Heather Gallagher MD) Mother COPD (chronic obstructive pulmonary disease) Father COPD (chronic obstructive pulmonary disease) Surgical History (Updated 01/19/22 @ 20:[address] Heather Gallagher MD) History of surgery on lower extremity S/P TURP Status post tonsillectomy and adenoidectomy Social History (Updated 01/19/22 @ 20:[address] Heather Gallagher MD) household members: none housing: [facility] Smoking Status: Former smoker how long ago did patient quit smoking: Quit tobacco use 10 years prior, smoked ~ 2-3 ppd since late teens. alcohol intake: former details: Recovered alcoholic, > 30 years sobriety, noted start in the late 80s. ROS Review of Systems ROS Unobtainable: due to mental condition Vital Signs Vital Signs Vital Signs: 01/19/22 11:08 Temperature 98.0 F Temperature Source Temporal Pulse Rate 69 Respiratory Rate 18 Blood Pressure 130/66 H Blood Pressure Mean 87 Pulse Ox 93 Oxygen Delivery Method Room Air Weight Weight: 153 lb 3.54 oz Body Mass Index (BMI) 24.6 Physical Exam Narrative Physical Examination: General: Awake, alert, oriented to self but when answering questions is definitely speaking nonsensically to the questions addressed to him, states this is baseline with severe underlying memory impairment, currently calm but does have underlying behavioral issues, seated upright in the ED and denies any pain, does not recall any recent fall. Skin: Normal color, normal turgor, no icterus, no cyanosis except occasional staged ecchymoses. HEENT: AT/NC, EOMI, PERRLA, mildly dry MM, no carotid bruits or JVD noted. Lungs: Mildly diminished, greater bases, appropriate effort, no rales, ronchi or wheezing. Heart: Currently regular rate and rhythm; no gallop, rub audible. Abdomen: Soft, NTTP, ND, distant normal BS, no HSM. Extremities: No cyanosis, no clubbing, notable right lower extremity external rotation, peripheral pulses intact, some distal nonpitting edema noted. Neurological: Patient awake, alert, oriented as noted, cognitive function extremely decreased baseline with underlying severe dementia, currently appears similar and per spouse is baseline intact; pupils equally reactive to light and accommodation, cranial nerves II-XII grossly normal, moving all 4 extremities except expected limitation to the right lower extremity although he still does move it because he does not recall his injury but elicits pain when it does occur, no obvious deficits but difficult examination, strength accordingly severely global decreased. Psychiatric: Affect appears currently fatigued but smiling and conversive, no acute evidence of depressive or anxiety feelings but does have underlying history. Results Lab / Micro Data Result Diagrams: 01/19/22 14:42 01/19/22 14:42 Radiology Impression Foot X-Ray 01/19/22 11:52 IMPRESSION: No definite acute displaced fracture identified in the right foot with limited evaluation laterally due to overlying material. Electronically Signed: Cassy Ya MD at 13:26 EDT , Hip/Pelvis X-Ray 01/19/22 11:52 IMPRESSION: Right intertrochanteric fracture and avulsion of the lesser tuberosity. Electronically Signed: Tu Mims MD at 13:09 EDT , Knee X-Ray 01/19/22 11:52 IMPRESSION: Chronic nondisplaced fracture of the right patella. Electronically Signed: Cassy Ya MD at 13:27 EDT , Ankle X-Ray 01/19/22 12:30 IMPRESSION: Limited evaluation for nondisplaced fracture of the distal right fibula due to artifact from overlying material. Electronically Signed: Cassy Ya MD at 13:15 EDT , Assessment & Plan Assessment/Plan (1) Closed intertrochanteric fracture of right hip: PLAN: Plan The patient is a 76 y/o M w/ PMHx: Anxiety and Depression, COPD, Recovered Alcoholic in remission, Former tobacco use, BPH, Hx GI bleed, HTN, HLD, Hx Colon CA s/p polypectomy potentially but no extensive surgery per discussion with , Dementia unclear type with reported restlessness/agitation behavioral impairment with associated cognitive impairment who presents to the [facility] ED on 01/19/22 with history of mechanical fall at his ECF noted to have fall backwards, hitting his right elbow on the table and potentially landing on his RLE with inability to straighten the extremity or bear weight secondary to pain prompting ED evaluation. #1. General debility, R hip pain s/p mechanical fall w/ right intertrochanteric fracture and avulsion of the lesser tuberosity complicated by a potentially nondisplaced fracture of the distal right fibula as well as a noted chronic nondisplaced fracture of the right patella: Orthopedic surgery consulted from ED. Will admit to [facility], maintain NPO after midnight,judicious IVFs, UA, UCx, farias placement, monitor I/Os, frequent positioning, fall precautions, pain, anti-emetic regimen. PT/OT following operative intervention. CM consulted for discharge planning. Per NSQIP patient certainly is at least a moderate to elevated risk and is more complicated by his extensive underlying memory impairment, currently residing in a full geriatric nursing assistant situation in a memory impairment unit. Patient is a DNR CC status and lengthy discussion with with decision for only comfort measures and she does not prefer any further aggressive preoperative evaluation understands his risk and is amenable. Discussed this with Dr. Gonzalez with planned progression to OR 01/20/2022. #2. Recent history of urinary tract infection, unclear organism: Patient per history from his facility with potential urinary tract infection may be 2 weeks prior treated with ciprofloxacin, urinalysis and urine culture requested. #3. Dementia, potentially Alzheimer's from review of records with behavioral disturbance history: Complicates presentation, will continue patient's memory impairment unit medications, maintain on fall and aspiration precautions, therapies consulted and noted. Previously from records given concerns of vascular dementia he had been transiently on Plavix but this is since been discontinued. #4. Anxiety and depression: We will continue patient home lorazepam, risperidone, citalopram regimen. #5. Chronic COPD: Not on any routine Hailer, will have as needed albuterol, encourage head of bed and I-S if patient is able. #6. Hypertension: Continue home regimen including Lasix, lisinopril with hold parameters as needed, PRN hydralazine. #7. Hyperlipidemia: Not on statin therapy. #8. Former alcohol abuse: Patient with history of remote alcohol abuse, sober for at least 30 years, from discussion with spouse has been at least sober since the 1980s. #9. Former tobacco use: Encourage continued tobacco cessation. #10. CODE status: Patient KOBY is his and living will is currently in place. Discussed CODE status at length including difference between FULL code, DNR-CCA and DNR-CC status. Following discussions about the differences in these status, requested continuation of DNRCC status with focus primarily on his comfort only. Advanced Care Planning Face to Face Time: 16 minutes. Charges/Coding Visit Charges Inpatient E&M: 10137 Init Hosp L3 Procedures Hospitalists Procedures: 51631 Advncd Care Plan 30 Min
--- NOTE | 2022-01-19 14:44 | RAD_ITS ---
HISTORY: Cough. TECHNIQUE: XR Chest 1 View. COMPARISON: 12/18/2021. FINDINGS: CARDIOMEDIASTINAL BORDERS: Cardiac silhouette within normal limits in size. Mediastinal contour unchanged calcification of the aorta. LUNGS: Mild right apical opacity. PLEURA: No pleural effusion or pneumothorax seen. OSSEOUS STRUCTURES: Degenerative change. RAD/Chest 1 View (Portable) IMPRESSION: Mild right apical opacity again seen. Consider follow-up or CT to assess for focal infection or mass. Electronically Signed: Cassy Ya MD at 15:11 EDT ,
--- NOTE | 2022-01-19 14:45 | NURSING ---
DR AGUILAR FOR DR LEW
[2022-01-19 14:51] VITALS: BP 160/101; PULSE 82; RESP 18; TEMP 36.4; O2SAT 94
[2022-01-19 14:53] LABS: Absolute Lymphocyte Count 0.52 X10^3/uL (0.83-4.51); Absolute Neutrophil Count 9.9 X10^3/uL (2.0-7.7); Basophil# 0.03 X10^3/uL; Basophil% 0.3 % (0-1); Eosinophil# 0.22 X10^3/uL; Eosinophils% 1.9 % (0-5); Hematocrit 38.1 % (40-54); Hemoglobin 12.5 g/dL (13.0-16.5); Lymphocyte # 0.52 X10^3/ul (0.83-4.51); Lymphocyte % 4.6 % (19-41); Mean Corp Hgb Conc 32.8 g/dL (32-36); Mean Corpuscular Hgb 30.3 pg (27.0-32.0); Mean Corpuscular Volume 92.3 fL (80-94); Mean Platelet Vol. 10.5 fl (6.2-12.0); Monocyte# 0.59 X10^3/uL; Monocyte% 5.2 % (0-10); NRBC Flagged by Analyzer 0 % (0-5); Neutrophil # 9.92 X10^3/uL (2.7-7.7); Neutrophil % 87.3 % (47-70); POSITIVE DIFFERENTIAL YES; Platelet Count 214 K/mm3 (150-450); RBC Distribution Width CV 13.2 % (11.6-14.6); RBC Distribution Width SD 44.7 fl (35.1-43.9); Red Blood Count 4.13 M/mm3 (4.6-6.2); White Blood Count 11.4 K/mm3 (4.4-11.0)
[2022-01-19 14:55] LABS: Differential Indicated SCAN CRITERIA MET
--- NOTE | 2022-01-19 14:59 | NURSING ---
MED SURG WHITE INTERTROCHANTERIC FX RT HIP
[2022-01-19 15:07] VITALS: RESP 18
[2022-01-19 15:11] LABS: Platelet Estimate ADEQUATE (ADEQ); Red Cell Morphology N CYTIC NORMAL (NORM C&C)
[2022-01-19 15:12] LABS: International Normalized Ratio 1.1; Prothrombin Time (Protime)PT. 13.8 SECONDS (11.7-14.9)
[2022-01-19 15:14] LABS: Partial Thromboplast Time 28.9 Seconds (24.1-36.2)
[2022-01-19 15:17] LABS: ALB/GLOB Ratio 0.9 RATIO (0.9-2.4); AST(SGOT) 14 U/L (15-37); Alanine Aminotransfer ALT/SGPT 16 U/L (16-61); Albumin, Serum 3.2 g/dL (3.2-5.0); Alkaline Phosphatase 85 U/L (45-117); Anion Gap 5 (5-15); BUN 11 mg/dL (7-18); BUN/Creat Ratio 15.6 RATIO (10-20); Calcium,Total 8.8 mg/dL (8.5-10.1); Chloride 103 mmol/L (98-107); Creatinine, Serum 0.71 mg/dL (0.70-1.30); EST Glomerular Filtration Rate 115 mL/min (>60); Est Glom Filt Rate - Afr Amer 139 mL/min (>60); Estimated Creatinine Clearance 54.94 ml/min; Globulin 3.4 g/dL (2.2-4.2); Glucose 124 mg/dL (74-106); Potassium 3.7 mmol/L (3.5-5.1); Protein, Total 6.6 g/dL (6.4-8.2); Sodium Level 137 mmol/L (136-145)
[2022-01-19 16:09] VITALS: BP 139/100; PULSE 85; RESP 18; TEMP 36.6; O2SAT 96
[2022-01-19] MEDS: LORazepam 0.5 MG Tablet PO ×2 (16:15→21:41)
[2022-01-19 17:19] VITALS: O2SAT 96
[2022-01-19] MEDS: RisperiDONE 0.5 MG Tablet PO (21:42)
[2022-01-19] MEDS: Senna/Docusate Sodium 1 Tablet 2 TABLET PO (21:43)
[2022-01-19] MEDS: Atorvastatin Calcium 40 MG Tablet PO (21:43)
[2022-01-20] VITALS (13 sets, daily range): BP systolic 135–173; BP diastolic 70–108; PULSE 78–90; RESP 16–18; TEMP 36.8–37.6; O2SAT 88–97; BMI 23.8
[2022-01-20] MEDS: 0.9% Normal Saline 1,000 ML 100 ML IV ×3 (00:45→22:51)
[2022-01-20] MEDS: 0.9% Saline Lock 10 ML Syringe IV (00:47)
[2022-01-20] MEDS: LORazepam 0.5 MG Tablet PO ×4 (03:54→22:53)
[2022-01-20 06:28] LABS: Absolute Lymphocyte Count 0.86 X10^3/uL (0.83-4.51); Absolute Neutrophil Count 6.7 X10^3/uL (2.0-7.7); Basophil# 0.02 X10^3/uL; Basophil% 0.2 % (0-1); Eosinophil# 0.27 X10^3/uL; Eosinophils% 3.1 % (0-5); Hematocrit 32.4 % (40-54); Hemoglobin 10.7 g/dL (13.0-16.5); Lymphocyte # 0.86 X10^3/ul (0.83-4.51); Lymphocyte % 9.9 % (19-41); Mean Corpuscular Hgb 30.5 pg (27.0-32.0); Mean Corpuscular Volume 92.3 fL (80-94); Mean Platelet Vol. 10.2 fl (6.2-12.0); Monocyte# 0.84 X10^3/uL; Monocyte% 9.7 % (0-10); NRBC Flagged by Analyzer 0 % (0-5); Neutrophil # 6.66 X10^3/uL (2.7-7.7); Neutrophil % 76.5 % (47-70); Platelet Count 192 K/mm3 (150-450); RBC Distribution Width CV 13.3 % (11.6-14.6); RBC Distribution Width SD 44.7 fl (35.1-43.9); Red Blood Count 3.51 M/mm3 (4.6-6.2); White Blood Count 8.7 K/mm3 (4.4-11.0)
[2022-01-20 07:01] LABS: ALB/GLOB Ratio 0.9 RATIO (0.9-2.4); AST(SGOT) 14 U/L (15-37); Alanine Aminotransfer ALT/SGPT 16 U/L (16-61); Albumin, Serum 2.8 g/dL (3.2-5.0); Alkaline Phosphatase 73 U/L (45-117); Anion Gap 5 (5-15); BUN 11 mg/dL (7-18); BUN/Creat Ratio 16.3 RATIO (10-20); Calcium,Total 8.3 mg/dL (8.5-10.1); Chloride 103 mmol/L (98-107); Creatinine, Serum 0.68 mg/dL (0.70-1.30); EST Glomerular Filtration Rate 121 mL/min (>60); Est Glom Filt Rate - Afr Amer 146 mL/min (>60); Estimated Creatinine Clearance 54.94 ml/min; Globulin 3.2 g/dL (2.2-4.2); Glucose 107 mg/dL (74-106); Potassium 3.5 mmol/L (3.5-5.1); Sodium Level 137 mmol/L (136-145)
[2022-01-20 07:28] LABS: Bacteria 0 SEEN /hpf (None Seen); Mucous, Urine 0 SEEN /hpf (<or=2+); Red Blood Cells-Urine 0 SEEN /hpf (0-5); Squamous Epithelial Cells - UA 0 SEEN /hpf (0-5); White Blood Cells 0 SEEN /hpf (0-5)
[2022-01-20 07:31] LABS: Color, Urine Yellow (Yellow); Glucose, Dipstick Normal (Normal); Leukocyte Esterase-Dipstick Negative /ul (Negative); Nitrite-Dipstick Negative (Negative); Occult Blood-Urine 10 /ul (Negative); Protein-Dipstick 15 mg/dl (Negative); Specific Gravity, Urine 1.015 (1.002-1.030); Urine Bilirubin Dipstick Negative (Negative); Urine Clarity Clear (Clear); Urine Urobilinogen Normal (Normal); Urine pH 6.5 (5.0 - 8.0)
[2022-01-20 07:35] LABS: Ketone-Dipstick 150 mg/dl (Negative)
[2022-01-20] MEDS: Furosemide 40 MG Tablet PO (08:44)
[2022-01-20] MEDS: Citalopram 10 MG Tablet PO (08:44)
[2022-01-20] MEDS: traMADol 50 MG Tablet PO ×2 (08:44→20:40)
--- NOTE | 2022-01-20 12:22 | CASEMGMT ---
Addendum entered by Sima Boyce 01/20/22 13:04: Pt's was provided a list of SNF?providers including quality and resource use data that is consistent with the patient?s preferred geographic region, medical needs, and insurance network. She reviewed and prefers [facility] as first choice and [facility] as the second. Original Note: Social Work SW in to pt room to met with pt . SW introduced self and explained role at the hospital. Pt willing to discuss discharge options with this SW. She reports she does not want pt to return to [facility] they can't handle him. requesting IRU or TCU at [facility]. SW explained IRU required 3 hours of rehab each day and then requesting TCU if possible. LV sent referral to Isabella at TCU and notified her of pt Dementia diagnosis. Isabella shared they will review PT/OT notes tomorrow following surgery to determine acceptance. Pt's stated [facility] would be her second choice. [facility] may be best option for pt if he is moving from [facility] to a longterm facility. Will review tomorrow. Plan: [facility] for rehab and longterm care if agreeable. NISHA Ryan
--- NOTE | 2022-01-20 14:00 | RAD_ITS ---
STUDY: AP VIEW OF THE RIGHT HIP IN THE OPERATING ROOM OF 1459 HOURS ON 01/20/2022 REASON FOR EXAM: 68-year-old male with a hip fracture. TECHNIQUE: One portable view of the right hip. COMPARISON: None. FINDINGS: This single view appears to have been performed for placement of a large surgical screw through the right femoral neck region, which appears to be in anatomic alignment. RAD/Hip 1 view with Pelvis IMPRESSION: Large surgical screw through the right femoral neck region appears to be in anatomic alignment. Electronically Signed: Miky Oquendo MD at 16:05 EDT ,
--- NOTE | 2022-01-20 14:14 | PCM.CONS.GEN ---
Assessment & Plan Assessment/Plan (1) Closed intertrochanteric fracture of right hip: PLAN: Natural history of the disease process and treatment options were discussed the power of defense attorney/ who was at the bedside. All parties agree that palliative treatment to help with patient's significant change in comfort level would be appropriate. All parties acknowledge that this could be a life-threatening procedure. He is DNR CCA I have explained to them that hospital policy is to reverse this during the procedure however, all the perioperative times we would attempt to honor the request the greatest of our extent. Based on the fracture pattern I recommended a cephalomedullary nail. Risk and benefits of procedure were discussed the power of defense attorney including but not limited to blood loss, DVTs, PEs, nervous damage infection, the risk of anesthesia include loss of life. We also discussed nonunion, union and hardware failure and cut out. Power of defense attorney demonstrates an understanding and is able to sign informed consent. At this time patient has been cleared for surgery we will plan to proceed this afternoon. Antibiotics on-call to the operating room. Preoperative appropriate consent has been obtained. (2) Nondisplaced fracture of right patella: PLAN: We did discuss the nature of the fracture. Currently patient has no discomfort with palpation of this area. I would like to place him in a knee immobilizer for the next 2 weeks and remove the knee immobilizer of his knee remains without pain. Family demonstrates an understanding and is agreeable to this treatment plan as well. He will need frequent skin checks. HPI Consult Data Date of Consult: 01/20/22 HPI Narrative Reason for Consultation: Right hip pain HPI Narrative: RYAN BARTH, is a 76 M with severe dementia and multiple medical comorbidities who resides in a memory facility who presents today with right hip pain. His is at his bedside she is his power of defense attorney. She notes that he was at the dining room at the [facility] care facility when he rested his weight on the table. The table gave out on him and he landed on his right side. He was unable to bear weight. He is normally nonverbal. They noticed that he is grimacing more and significantly more agitated associated with pain. He is unable to give any further history. He is DNR CCA. He did normally walk with a shuffling gait did not use walker or cane. His demeanor is significantly changed. Family does wish to consider surgical intervention as a palliative treatment. Yesterday he indicated additional leg pain. A knee x-ray was performed did show a nondisplaced transverse mid pole patella fracture. He has been placed in a knee immobilizer. [facility] Medical History Abnormal findings on diagnostic imaging of heart/coronary circulation Basal cell carcinoma (BCC) of antihelix of ear Benign neoplasm of colon Benign prostatic hyperplasia with lower urinary tract symptoms Chronic bronchitis COPD (chronic obstructive pulmonary disease) Dementia Essential hypertension Former tobacco use Glaucoma Hyperlipemia Mild cognitive impairment Recovering alcoholic in remission Restlessness and agitation Home Medications furosemide 20 mg tablet 40 mg PO DAILY edema 10/13/21 [History Last Taken Unknown] loperamide 2 mg capsule 2 mg PO DAILY diarrhea 10/13/21 [History Last Taken Unknown] brimonidine 0.2 %-timolol 0.5 % eye drops (Combigan) 1 drp BID left eye 01/19/22 [History Last Taken Unknown] citalopram 10 mg tablet 10 mg PO DAILY depression 01/19/22 [History Last Taken Unknown] lisinopril 20 mg tablet 20 mg PO DAILY bp 01/19/22 [History Last Taken Unknown] lorazepam 0.5 mg tablet 0.5 mg PO Q6H restlessness 01/19/22 [History Last Taken Unknown] melatonin 5 mg tablet 5 mg PO QHS sleep 01/19/22 [History Last Taken Unknown] potassium chloride 20 mEq tablet,extended release 20 meq PO DAILY supplement 01/19/22 [History Last Taken Unknown] risperidone 0.5 mg tablet 0.5 mg PO QHS behavior 01/19/22 [History Last Taken Unknown] Allergy/AdvReac Type Severity Reaction Status Date / Time Sulfa (Sulfonamide Allergy Unknown Verified 01/19/22 11:17 Antibiotics) oxycodone HCl [From Percocet] AdvReac Other Verified 01/19/22 11:17 Family History Mother COPD (chronic obstructive pulmonary disease) Father COPD (chronic obstructive pulmonary disease) Surgical History History of surgery on lower extremity S/P TURP Status post tonsillectomy and adenoidectomy Social History household members: none housing: senior living Smoking Status: Former smoker how long ago did patient quit smoking: Quit tobacco use 10 years prior, smoked ~ 2-3 ppd since late teens. alcohol intake: former details: Recovered alcoholic, > 30 years sobriety, noted start in the late 80s. ROS Review of Systems ROS Unobtainable: due to mental status Physical Exam Const Constitutional Narrative: Does not communicate well. ACKnowledges my presence. HEENT normocephalic Eyes PERRL Neck No nuchal rigidity Resp normal respiratory effort Cardio Cardio Narrative: Regular pulse rate GI non-distended Extremity Extremity Narrative: Right lower extremity: Skin clean, dry, and intact. Limb is shortened and externally rotated Motor is intact dorsiflexion, EHL and plantar flexion. Sensation is intact to light touch saphenous, kenny,l superficial peroneal, deep peroneal and tibial distributions. Calves are soft and supple. Knee was also palpated with minimal pain. He has a small abrasion of the anterior knee. Minimal effusion. Knee immobilizer was removed to examine. Skin Skin Narrative: Abrasion over right anterior knee Psych Psych Narrative: Severe dementia, nonverbal Medical Records Data Attestation: I reviewed the patient's medical records Lab / Micro Data Attestation: I reviewed the patient's lab results. Result Diagrams: 01/20/22 06:17 01/20/22 06:17 Labs: Laboratory Results - last 24 hr 01/19/22 14:42: WBC 11.4 H, RBC 4.13 L, Hgb 12.5 L, Hct 38.1 L, MCV 92.3, MCH 30.3, MCHC 32.8, RDW Std Deviation 44.7 H, RDW Coeff of Jj 13.2, Plt Count 214, MPV 10.5, Immature Gran % (Auto) 0.700, Neut % (Auto) 87.3 H, Lymph % (Auto) 4.6 L, Horry % (Auto) 5.2, Eos % (Auto) 1.9, Baso % (Auto) 0.3, Absolute Neuts (auto) 9.9 H, Absolute Lymphs (auto) 0.52 L, Nucleated RBC % 0, Platelet Estimate ADEQUATE, RBC Morphology N CYTIC 01/19/22 14:42: PT 13.8, INR 1.1, APTT 28.9 01/19/22 14:42: Sodium 137, Potassium 3.7, Chloride 103, Carbon Dioxide 29.0, Anion Gap 5, BUN 11, Creatinine 0.71, Estim Creat Clear Calc 54.94, Est GFR (MDRD) Af Amer 139, Est GFR (MDRD) Non-Af 115, BUN/Creatinine Ratio 15.6, Glucose 124 H, Calcium 8.8, Total Bilirubin 0.70, AST 14 L, ALT 16, Alkaline Phosphatase 85, Total Protein 6.6, Albumin 3.2, Globulin 3.4, Albumin/Globulin Ratio 0.9 01/19/22 14:42: Magnesium 2.0 01/19/22 14:42: Sodium Cancelled, Potassium Cancelled, Chloride Cancelled, Carbon Dioxide Cancelled, Anion Gap Cancelled, BUN Cancelled, Creatinine Cancelled, Estim Creat Clear Calc Cancelled, Est GFR (MDRD) Af Amer Cancelled, Est GFR (MDRD) Non-Af Cancelled, BUN/Creatinine Ratio Cancelled, Glucose Cancelled, Calcium Cancelled, Total Bilirubin Cancelled, AST Cancelled, ALT Cancelled, Alkaline Phosphatase Cancelled, Total Protein Cancelled, Albumin Cancelled, Globulin Cancelled, Albumin/Globulin Ratio Cancelled 01/19/22 17:40: Urine Color Yellow, Urine Clarity Clear, Urine pH 6.5, Ur Specific [place] 1.015, Urine Protein 15 H, Urine Glucose (UA) Normal, Urine Ketones 150 A*, Urine Occult Blood 10 H, Urine Nitrite Negative, Urine Bilirubin Negative, Urine Urobilinogen Normal, Ur Leukocyte Esterase Negative, Urine RBC 0 SEEN, Urine WBC 0 SEEN, Ur Squamous Epith Cells 0 SEEN, Urine Bacteria 0 SEEN, Urine Mucus 0 SEEN 01/20/22 06:17: WBC 8.7, RBC 3.51 L, Hgb 10.7 L, Hct 32.4 L, MCV 92.3, MCH 30.5, MCHC 33.0, RDW Std Deviation 44.7 H, RDW Coeff of Jj 13.3, Plt Count 192, MPV 10.2, Immature Gran % (Auto) 0.600, Neut % (Auto) 76.5 H, Lymph % (Auto) 9.9 L, Horry % (Auto) 9.7, Eos % (Auto) 3.1, Baso % (Auto) 0.2, Absolute Neuts (auto) 6.7, Absolute Lymphs (auto) 0.86, Nucleated RBC % 0 01/20/22 06:17: Sodium 137, Potassium 3.5, Chloride 103, Carbon Dioxide 29.0, Anion Gap 5, BUN 11, Creatinine 0.68 L, Estim Creat Clear Calc 54.94, Est GFR (MDRD) Af Amer 146, Est GFR (MDRD) Non-Af 121, BUN/Creatinine Ratio 16.3, Glucose 107 H, Calcium 8.3 L, Total Bilirubin 1.10 H, AST 14 L, ALT 16, Alkaline Phosphatase 73, Total Protein 6.0 L, Albumin 2.8 L, Globulin 3.2, Albumin/Globulin Ratio 0.9 01/20/22 06:17: Blood Type O POSITIVE, Antibody Screen NEGATIVE Micro: Microbiology 01/19/22 14:42 Nasal Secretion SARS-CoV-2 Antigen (Rapid) - Final Radiology Impression Chest X-Ray 01/19/22 14:44 IMPRESSION: Mild right apical opacity again seen. Consider follow-up or CT to assess for focal infection or mass. Electronically Signed: Cassy Ya MD at 15:11 EDT ,
[2022-01-20] MEDS: Cefazolin 2 GM in 0.9% Normal Saline 100 ML IV (14:19)
--- NOTE | 2022-01-20 15:04 | CASEMGMT ---
Discharge Supervisor [employer] Katheryn haro/pablito residential real estate assistant called [facility] at [facility]. [facility] has a couple beds available. [facility] is aware that patient has dementia and will need a secured unit. Will follow up. Plan: [facility], Waiting Acceptance Katheryn Pagan Discharge Supervisor [employer]
--- NOTE | 2022-01-20 15:15 | PCM.OPRPT ---
Report of Operation Date of Procedure: 01/20/22 Pre-Operative Diagnosis: Right intertrochanteric hip fracture Post-Operative Diagnosis: Right intertrochanteric hip fracture Surgery/Procedure Performed:: Right hip cephalomedullary nail Description of Surgical Findings:: Stable reduction Surgeon: Roland Gonzalez process improvement analyst: None Type of Anesthesia: General Anesthesiologist: Moses Diaz Special Medications: Ancef Estimated Blood Loss (mL): 250 Fluids Replaced: 800 ml Description of Procedure: Components used: 1. [employer] InterTAN nail short 11mm nail 2. [employer] InterTAN lag screw90]mm 3. [employer] 30 millimeter interlocking screw Procedure: On the date of the procedure the patient's Right hip was marked in the preoperative area and patient was taken back to the operating room. Anesthetic was administered and patient was transferred to the table were all bony prominence identified well-padded and the ipsilateral arm was placed across the chest. Patient was then translated down to the perineal post and the operative leg was placed in the boot while the nonoperative leg was lowered and secured. The operative leg was placed in traction and internal rotation and live fluoroscopy was used to verify adequate reduction. The operative leg was then prepped in a sterile fashion with chlorhexidine while the surgeon scrubbed. Upon reentering the room the operative extremity was draped in the standard orthopedic fashion. Skin incision was marked and a timeout was called. Everyone agreed upon the side, the site, the procedure be performed, patient's identity, and antibiotics given. Skin incision was made and the position of the entry guidepin was verified using live fluoroscopy. Once we were satisfied with our position the pin was advanced in the soft tissue protector was placed over the pin. The entry reamer was then advanced into the proximal portion of the femur. A [employer] short InterTAN 11 mm 125 hip nail was selected. The nail was then attached to the [employer] architect and inserted into the intramedullary canal. The appropriate depth was verified and the skin incision for the lag screw was made. The lag screw guidepin was then placed under live fluoroscopy and when a satisfactory position was obtained the length of the screw was measured and the standard technique to drill for the lag screws was performed. The anti-rotation bar was used. At this time a 90 mm lag screw was selected with its corresponding compression screw. The lag screw was then passed and traction was left off the leg. The compression screw was then passed and the fracture was compressed. The final position of the lag screw was verified under fluoroscopy. Attention was then turned to the distal portion of the nail and a distal guide technique was used to locate the distal interlocking screw and a 30 mm distal interlocking screw was placed using this technique. Live fluoroscopy was used to verify the position of the interlocking screw and the final position of the hip components. Once we were satisfied with our positioning the wounds were copiously irrigated out with normal saline skin was closed with 2-0 Vicryl and janell for final skin closure. A sterile dressing was placed with Xeroform. Patient was then awakened by anesthesia transferred from the fracture table back to their hospital bed and transferred to the PACU for recovery. Postoperative plan: Patient will be weight-bear as tolerated. 81 mg asa bid for DVT prophylaxis with knee-high stockings. Follow up in the office in 2 weeks. Complications none Admit VTE Documentation VTE Present on Admission: No VTE Mechan Device Prophylaxis: SCD's and Thigh High ELIEZER Hose VTE Pharm Prophylaxis ordered?: Yes
--- NOTE | 2022-01-20 15:19 | PN.HOSP_ITS ---
Subjective Subjective Family is at the bedside upon my exam today. Patient at baseline is not all that communicative related to his dementia. Patient is enrolled in hospice but they had to revoke hospice to come in and get his hip treated palliatively and then he will reenroll in hospice upon discharge. He is currently living in [facility] however I suspect he will need to go to [facility] at discharge. Plan is for OR later today. Objective Data Objective Data Vital Signs: Vital Signs Temp Pulse Resp BP Pulse Ox O2 Del Method O2 Flow Rate 98.7 F 78 18 144/71 H 96 Nasal Cannula 2 01/20/22 11:53 01/20/22 11:53 01/20/22 11:53 01/20/22 11:53 01/20/22 11:53 01/20/22 11:53 01/20/22 11:53 Oxygen Flow Rate (L/min) 2 Oxygen Delivery Method Nasal Cannula Weight: 67.2 kg Body Mass Index (BMI) 23.8 Intake & Output: Intake and Output for Last 24 Hours 01/18/22 01/19/22 01/20/22 23:59 23:59 23:59 Intake Total 200 / 200 1000 / 1000 Output Total 800 / 800 Balance 200 / -50 200 / 200 Lab / Micro Data Result Diagrams: 01/20/22 06:17 01/20/22 06:17 Labs: Laboratory Results - last 24 hr 01/19/22 14:42: Magnesium 2.0 01/19/22 14:42: Sodium Cancelled, Potassium Cancelled, Chloride Cancelled, Carbon Dioxide Cancelled, Anion Gap Cancelled, BUN Cancelled, Creatinine Cancelled, Estim Creat Clear Calc Cancelled, Est GFR (MDRD) Af Amer Cancelled, Est GFR (MDRD) Non-Af Cancelled, BUN/Creatinine Ratio Cancelled, Glucose Cancelled, Calcium Cancelled, Total Bilirubin Cancelled, AST Cancelled, ALT Cancelled, Alkaline Phosphatase Cancelled, Total Protein Cancelled, Albumin Cancelled, Globulin Cancelled, Albumin/Globulin Ratio Cancelled 01/19/22 17:40: Urine Color Yellow, Urine Clarity Clear, Urine pH 6.5, Ur Specific Patriot 1.015, Urine Protein 15 H, Urine Glucose (UA) Normal, Urine Ketones 150 A*, Urine Occult Blood 10 H, Urine Nitrite Negative, Urine Bilirubin Negative, Urine Urobilinogen Normal, Ur Leukocyte Esterase Negative, Urine RBC 0 SEEN, Urine WBC 0 SEEN, Ur Squamous Epith Cells 0 SEEN, Urine Bacteria 0 SEEN, Urine Mucus 0 SEEN 01/20/22 06:17: WBC 8.7, RBC 3.51 L, Hgb 10.7 L, Hct 32.4 L, MCV 92.3, MCH 30.5, MCHC 33.0, RDW Std Deviation 44.7 H, RDW Coeff of Jj 13.3, Plt Count 192, MPV 10.2, Immature Gran % (Auto) 0.600, Neut % (Auto) 76.5 H, Lymph % (Auto) 9.9 L, [place] % (Auto) 9.7, Eos % (Auto) 3.1, Baso % (Auto) 0.2, Absolute Neuts (auto) 6.7, Absolute Lymphs (auto) 0.86, Nucleated RBC % 0 01/20/22 06:17: Sodium 137, Potassium 3.5, Chloride 103, Carbon Dioxide 29.0, Anion Gap 5, BUN 11, Creatinine 0.68 L, Estim Creat Clear Calc 54.94, Est GFR (MDRD) Af Amer 146, Est GFR (MDRD) Non-Af 121, BUN/Creatinine Ratio 16.3, Glucose 107 H, Calcium 8.3 L, Total Bilirubin 1.10 H, AST 14 L, ALT 16, Alkaline Phosphatase 73, Total Protein 6.0 L, Albumin 2.8 L, Globulin 3.2, Albumin/Globulin Ratio 0.9 01/20/22 06:17: Blood Type O POSITIVE, Antibody Screen NEGATIVE Micro: Microbiology 01/19/22 14:42 Nasal Secretion SARS-CoV-2 Antigen (Rapid) - Final Physical Exam Const alert and no apparent distress Constitutional Narrative: Older white male lying in bed, family at bedside, patient is predominantly noncommunicative although responsive names, baseline is alert and oriented x1- himself only Orientation / Consciousness: confused and disoriented HEENT head/scalp atraumatic and moist oral mucous membranes Head and Scalp: normocephalic Resp normal respiratory effort, no retractions, no use of accessory muscles and clear to auscultation bilaterally Auscultation: Negative for crackles, rales, rhonchi or wheezes Cardio regular rate, regular rhythm, S1 normal heart sound, S2 normal heart sound, no murmurs, no rub, no gallops, no clicks and no JVD GI normal to inspection, nondistended, normoactive bowel sounds, soft to palpation, non-tender and non-distended Extremity no clubbing, cyanosis or edema Extremity Narrative: Right lower extremity in long leg brace to reduce movement Neuro Neuro Narrative: Very limited exam with patient's limited ability to follow commands consistently, does move upper extremities spontaneously, decreased movement right lower extremity secondary to leg brace in place, normal movement left lower extremity Psych Psych Narrative: Patient with severe dementia Assessment & Plan Assessment/Plan (1) Nondisplaced fracture of right patella: (2) Closed intertrochanteric fracture of right hip: (3) Anemia: (4) Debility: PLAN: Plan Right intertrochanteric fracture -Orthopedic surgery consulted and cephalomedullary nail has been recommended -OR today -DVT prophylaxis per orthopedic surgery -PT/OT consultation -Patient will need discharge to [facility]--> currently in [place] Nondisplaced fracture of the right patella -Orthopedic surgery following -Recommendation is knee immobilizer for 2 weeks with removal at that time if he remains pain-free Recent urinary tract infection -Organism unclear -Per request of family urinalysis and urine culture performed -UA is not consistent with infection at this time -Culture pending COPD -Not on any routine inhalers -As needed albuterol -I-S if possible Hypertension -Continue home Lasix/lisinopril -As needed hydralazine History of hyperlipidemia -Patient is not on statin therapy History of alcohol abuse -Patient sober for at least 30 years Severe dementia-type undetermined -Has had behavioral disturbances in the past -Avoid narcotics but okay for Ultram as narcotics make patient more agitated and combative -Will need placement upon discharge -Patient is enrolled to hospice at baseline and is in the intent of the family to reenroll him in hospice after discharge History of tobacco abuse -Continued cessation CODE STATUS -DNR CC Charges/Coding Visit Charges Inpatient E&M: 30172 Subs Hosp L2
--- NOTE | 2022-01-20 15:29 | CASEMGMT ---
Social Work SW in to discuss Advance Directives with pt Vannessa. She reports pt does have a HCPOA, naming her, Edgar which is on file at [facility] [place]. She also stated pt has a Living will and it should be on file. SW informed her a copy is not on file and she agreed to bring a copy on one of her future visits so that it can be scanned in. NISHA Ryan
--- NOTE | 2022-01-20 16:10 | RAD_ITS ---
STUDY: AP PELVIS AND RIGHT HIP--2 VIEWS OF 1610 HOURS ON 01/20/2022 REASON FOR EXAM: 76-year-old male post-op for right hip surgical repair. TECHNIQUE: 2 views of the pelvis and hip. COMPARISON: 01/19/2022. FINDINGS: There is evidence of a right intertrochanteric hip fracture and avulsion of the lesser tuberosity. Two surgical screws are noted crossing the intertrochanteric region into the femoral head with support for a proximal intramedullary cody. Except for the lesser tuberosity, the osseous structures are in anatomic alignment. There is no dislocation of the right hip joint. There is mild demineralization. Prominent surrounding soft tissue swelling and subcutaneous emphysema are noted--postoperative findings. RAD/Hip Min 2 Views (Portable) IMPRESSION: 1. Surgical repair of a right intertrochanteric hip fracture and avulsion of the lesser tuberosity-as described above. 2. The right intertrochanteric region, right femoral neck, and femoral head are in anatomic alignment. 3. No dislocation of the right hip joint. 4. Surrounding soft tissue swelling and subcutaneous emphysema. Electronically Signed: Miky Oquendo MD at 16:42 EDT ,
--- NOTE | 2022-01-20 16:22 | NURSING ---
PT HAS DEMENTIA, DOES NOT FOLLOW COMMANDS TO ASSESS EXTREMITIES MOVEMENT OR SENSATION.
[2022-01-20] MEDS: Cefazolin 1 GM/50 ML BAG IV (22:51)
[2022-01-20] MEDS: Aspirin 81 MG TAB.CHEW PO (22:53)
[2022-01-20] MEDS: MELATONIN 10 MG TABLET 5 MG PO (22:53)
[2022-01-20] MEDS: Atorvastatin Calcium 40 MG Tablet PO (22:54)
[2022-01-20] MEDS: RisperiDONE 0.5 MG Tablet PO (22:55)
[2022-01-20] MEDS: Senna/Docusate Sodium 1 Tablet 2 TABLET PO (22:55)
[2022-01-21] VITALS (7 sets, daily range): BP systolic 97–135; BP diastolic 50–69; PULSE 68–81; RESP 18–20; TEMP 36.6–37.2; O2SAT 70–96
[2022-01-21] MEDS: LORazepam 0.5 MG Tablet PO ×4 (04:26→21:44)
[2022-01-21] MEDS: Cefazolin 1 GM/50 ML BAG IV (05:07)
[2022-01-21 07:09] LABS: Absolute Lymphocyte Count 1.09 X10^3/uL (0.83-4.51); Basophil# 0.02 X10^3/uL; Basophil% 0.2 % (0-1); Eosinophil# 0.47 X10^3/uL; Eosinophils% 5.3 % (0-5); Hematocrit 30.9 % (40-54); Hemoglobin 10.1 g/dL (13.0-16.5); Lymphocyte # 1.09 X10^3/ul (0.83-4.51); Lymphocyte % 12.2 % (19-41); Mean Corp Hgb Conc 32.7 g/dL (32-36); Mean Corpuscular Hgb 30.5 pg (27.0-32.0); Mean Corpuscular Volume 93.4 fL (80-94); Mean Platelet Vol. 10.4 fl (6.2-12.0); Monocyte# 1.27 X10^3/uL; Monocyte% 14.2 % (0-10); NRBC Flagged by Analyzer 0 % (0-5); Neutrophil # 6.02 X10^3/uL (2.7-7.7); Neutrophil % 67.5 % (47-70); Platelet Count 194 K/mm3 (150-450); RBC Distribution Width CV 13.3 % (11.6-14.6); RBC Distribution Width SD 45.8 fl (35.1-43.9); Red Blood Count 3.31 M/mm3 (4.6-6.2); White Blood Count 8.9 K/mm3 (4.4-11.0)
[2022-01-21 07:45] LABS: Anion Gap 7 (5-15); BUN 10 mg/dL (7-18); BUN/Creat Ratio 13.2 RATIO (10-20); Chloride 103 mmol/L (98-107); Creatinine, Serum 0.76 mg/dL (0.70-1.30); EST Glomerular Filtration Rate 106 mL/min (>60); Est Glom Filt Rate - Afr Amer 128 mL/min (>60); Estimated Creatinine Clearance 54.94 ml/min; Glucose 114 mg/dL (74-106); Potassium 3.5 mmol/L (3.5-5.1); Sodium Level 137 mmol/L (136-145)
--- NOTE | 2022-01-21 08:02 | CASEMGMT ---
Discharge Earth Science Faculty Member Adry reached out from [facility]. Referral has been clinically denied. LV Gao notified. Plan: Katheryn Pagan Discharge Earth Science Faculty Member
[2022-01-21] MEDS: 0.9% Normal Saline 1,000 ML 100 ML IV (09:15)
[2022-01-21] MEDS: Citalopram 10 MG Tablet PO (09:18)
[2022-01-21] MEDS: Furosemide 40 MG Tablet PO (09:18)
[2022-01-21] MEDS: Lisinopril 20 MG Tablet PO (09:18)
[2022-01-21] MEDS: Senna/Docusate Sodium 1 Tablet 2 TABLET PO ×2 (09:18→21:45)
[2022-01-21] MEDS: Aspirin 81 MG TAB.CHEW PO ×2 (09:18→21:44)
[2022-01-21] MEDS: Potassium Chloride Oral Tablet 20 MEQ PO (09:18)
--- NOTE | 2022-01-21 10:59 | CASEMGMT ---
Social Work Sw in to pt room to meet with and discuss discharge options. SW reported to , Mckayla, that [facility] has not accepted patient. Mckayla expressed frustration but understanding. SW spoke with pt regarding TCU bed and how it is held for pt depending on his PT/OT recommendations. SW also spoke with Mckayla about joint terminal attack controller care and private paying if pt is not able to commit or participate with PT. Mckayla seeming to understand more at this time that rehab may not be achieved with pt's dementia and inability to follow commands. SW discussed attempting to find a facility that pt can attempt PT at but also where he can remain snf if unable to participate in PT so that he does not have to be moved around frequently. Mckayla voiced understanding and agreeing this is best option. Mckayla went over list of SNF options that was given to her by this SW yesterday and provided top three choices of [facility], [facility], and [facility]. SW shared intent to have discharge human resource assistant, Katheryn, send referral documents to which ever facility in order has open availability. SW called [facility] and spoke to DOA who stated they will not have a snf bed available until next week. She did request the referral be sent just in case something opens up. SW also called [facility] who has openings and asked for the referral to be sent as well. SW asked discharge human resource assistant, Katheryn Pagan, to send over paperwork to both facilities. Plan: [facility] vs [facility], pending acceptance and approval (decision based on private pay). NISHA Ryan
--- NOTE | 2022-01-21 11:12 | CASEMGMT ---
Discharge Chemical Reclamation Equipment Operator Katheryn d/pablito assistant merchandise manager called Susan and left a voicemail at [facility]. Katheryn reached out to Grace at [facility]. Katheryn sent referral to both places. Will follow up. Plan: [facility] vs [facility], waiting acceptance. Katheryn Pagan Discharge Chemical Reclamation Equipment Operator
[2022-01-21] MEDS: Ensure Surgery 237 ML LIQUID PO ×2 (11:50→16:20)
[2022-01-21] MEDS: traMADol 50 MG Tablet PO (11:55)
--- NOTE | 2022-01-21 13:40 | PN.HOSP_ITS ---
Subjective Subjective He is overnight other than some postoperative hypoxia. Nursing is in the process of weaning oxygen. Patient is drowsy but at baseline is noninteractive related to his chronic dementia. Referrals for ECF placement are pending. Objective Data Objective Data Vital Signs: Vital Signs Temp Pulse Resp BP Pulse Ox O2 Del Method O2 Flow Rate 98.3 F 79 18 103/69 95 Nasal Cannula 2 01/21/22 09:09 01/21/22 09:09 01/21/22 09:09 01/21/22 09:09 01/21/22 09:09 01/21/22 09:09 01/21/22 10:25 Oxygen Flow Rate (L/min) 2 Oxygen Delivery Method Nasal Cannula Weight: 69.49 kg Body Mass Index (BMI) 23.8 Intake & Output: Intake and Output for Last 24 Hours 01/19/22 01/20/22 01/21/22 23:59 23:59 23:59 Intake Total 200 / 200 2160 / 2160 1290 / 1290 Output Total 2900 / 2900 Balance 200 / -50 -740 / -740 1290 / 1290 Lab / Micro Data Result Diagrams: 01/21/22 06:50 01/21/22 06:50 Labs: Laboratory Results - last 24 hr 01/21/22 06:50: WBC 8.9, RBC 3.31 L, Hgb 10.1 L, Hct 30.9 L, MCV 93.4, MCH 30.5, MCHC 32.7, RDW Std Deviation 45.8 H, RDW Coeff of Jj 13.3, Plt Count 194, MPV 10.4, Immature Gran % (Auto) 0.600, Neut % (Auto) 67.5, Lymph % (Auto) 12.2 L, [place] % (Auto) 14.2 H, Eos % (Auto) 5.3 H, Baso % (Auto) 0.2, Absolute Neuts (auto) 6.0, Absolute Lymphs (auto) 1.09, Nucleated RBC % 0 01/21/22 06:50: Sodium 137, Potassium 3.5, Chloride 103, Carbon Dioxide 27.0, Anion Gap 7, BUN 10, Creatinine 0.76, Estim Creat Clear Calc 54.94, Est GFR (MDRD) Af Amer 128, Est GFR (MDRD) Non-Af 106, BUN/Creatinine Ratio 13.2, Glucose 114 H, Calcium 8.0 L Micro: Microbiology 01/19/22 17:40 Urine, Catheterized Urine Culture - Preliminary Culture exhibits no growth. 01/19/22 14:42 Nasal Secretion SARS-CoV-2 Antigen (Rapid) - Final Radiography Diagnostic Testing: Radiology Impression Hip/Pelvis X-Ray 01/20/22 14:00 IMPRESSION: Large surgical screw through the right femoral neck region appears to be in anatomic alignment. Electronically Signed: Miky Oquendo MD at 16:05 EDT , Hip X-Ray 01/20/22 16:10 IMPRESSION: 1. Surgical repair of a right intertrochanteric hip fracture and avulsion of the lesser tuberosity-as described above. 2. The right intertrochanteric region, right femoral neck, and femoral head are in anatomic alignment. 3. No dislocation of the right hip joint. 4. Surrounding soft tissue swelling and subcutaneous emphysema. Electronically Signed: Miky Oquendo MD at 16:42 EDT , Physical Exam Const alert and no apparent distress Constitutional Narrative: Older white male lying in bed sleeping, patient does arouse to tactile stimuli however patient is fairly nonverbal at baseline secondary to his severe dementia Orientation / Consciousness: confused and disoriented HEENT head/scalp atraumatic and moist oral mucous membranes HEENT Narrative: Nasal cannula is pulled off of his face I checked his pulse ox and he was 80% on room air and I therefore replaced his oxygen Resp normal respiratory effort, no retractions, no use of accessory muscles and clear to auscultation bilaterally Resp Narrative: Diminished but clear Auscultation: Negative for crackles, rales, rhonchi or wheezes Cardio regular rate, regular rhythm, S1 normal heart sound, S2 normal heart sound, no murmurs, no rub, no gallops, no clicks and no JVD GI normal to inspection, nondistended, normoactive bowel sounds, soft to palpation, non-tender and non-distended Extremity no clubbing, cyanosis or edema Extremity Narrative: Right lower extremity in long leg brace to reduce movement, postoperative dressing in place, polar ice in place Neuro Neuro Narrative: Very limited exam with patient's limited ability to follow commands consistently, does move upper extremities spontaneously, decreased movement right lower extremity secondary to leg brace in place, normal movement left lower extremity Psych Psych Narrative: Patient with severe dementia Assessment & Plan Assessment/Plan (1) Nondisplaced fracture of right patella: (2) Closed intertrochanteric fracture of right hip: (3) Anemia: (4) Debility: (5) Postoperative hypoxia: PLAN: Plan Right intertrochanteric fracture -Postop day 1 cephalomedullary nail -DVT prophylaxis with aspirin 81 mg twice daily -PT/OT consulted -Weightbearing as tolerated -Will need outpatient follow-up with orthopedic surgery in 2 weeks for postoperative x-rays and suture removal -Patient will need discharge to [facility]--> currently in [place] and placement is pending Nondisplaced fracture of the right patella -Orthopedic surgery following -Recommendation is knee immobilizer for 2 weeks with removal at that time if he remains pain-free Postoperative hypoxia -Suspect postoperative atelectasis -Encourage incentive spirometry if able however severe dementia may limit this -We will give an extra low-dose of Lasix today for fluid removal as he is positive for the hospitalization -If still requiring oxygen tomorrow we will check chest x-ray -Was on 3 L and has been weaned to 2 L now -Sats on room air were 80 to 82% -Discontinue IV fluids Recent urinary tract infection -Organism unclear -Per request of family urinalysis and urine culture performed -UA is not consistent with infection at this time -Culture negative for growth COPD -Not on any routine inhalers -As needed albuterol -I-S if possible Hypertension -Continue home Lasix/lisinopril -As needed hydralazine History of hyperlipidemia -Patient is not on statin therapy History of alcohol abuse -Patient sober for at least 30 years Severe dementia-type undetermined -Has had behavioral disturbances in the past -Avoid narcotics but okay for Ultram as narcotics make patient more agitated and combative -Will need placement upon discharge -Patient is enrolled to hospice at baseline and is in the intent of the family to reenroll him in hospice after discharge History of tobacco abuse -Continued cessation CODE STATUS -DNR CC Charges/Coding Visit Charges Inpatient E&M: 85328 Subs Hosp L2
[2022-01-21] MEDS: 0.9% Saline Lock 10 ML Syringe IV (14:14)
[2022-01-21] MEDS: Furosemide 20 MG/2 ML VIAL IV (14:14)
--- NOTE | 2022-01-21 14:30 | PCM.PN.ORT ---
Subjective Subjective The patient was sitting in bed upon examination with family members present. Patient is noninteractive with underlying cognitive impairment. He does not appear to be in any stress. Family members state that patient will be requiring intermediate facility. Case management is currently on board with this process. Patient also sustained a nondisplaced right patella fracture in which she is using a knee immobilizer. Patient was having some postoperative hypoxia and currently using 2 L nasal O2. Objective Data Objective Data Vital Signs: Vital Signs Temp Pulse Resp BP Pulse Ox O2 Del Method O2 Flow Rate 98.1 F 76 18 110/50 L 95 Nasal Cannula 2 01/21/22 13:00 01/21/22 13:00 01/21/22 13:00 01/21/22 13:00 01/21/22 13:00 01/21/22 13:00 01/21/22 13:00 Oxygen Flow Rate (L/min) 2 Oxygen Delivery Method Nasal Cannula Weight: 69.49 kg Body Mass Index (BMI) 23.8 Intake & Output: Intake and Output for Last 24 Hours 01/19/22 01/20/22 01/21/22 23:59 23:59 23:59 Intake Total 200 / 200 2160 / 2160 1290 / 1290 Output Total 2900 / 2900 750 / 750 Balance 200 / -50 -740 / -740 540 / 540 Lab / Micro Data Result Diagrams: 01/21/22 06:50 01/21/22 06:50 Labs: Laboratory Results - last 24 hr 01/21/22 06:50: WBC 8.9, RBC 3.31 L, Hgb 10.1 L, Hct 30.9 L, MCV 93.4, MCH 30.5, MCHC 32.7, RDW Std Deviation 45.8 H, RDW Coeff of Jj 13.3, Plt Count 194, MPV 10.4, Immature Gran % (Auto) 0.600, Neut % (Auto) 67.5, Lymph % (Auto) 12.2 L, [place] % (Auto) 14.2 H, Eos % (Auto) 5.3 H, Baso % (Auto) 0.2, Absolute Neuts (auto) 6.0, Absolute Lymphs (auto) 1.09, Nucleated RBC % 0 01/21/22 06:50: Sodium 137, Potassium 3.5, Chloride 103, Carbon Dioxide 27.0, Anion Gap 7, BUN 10, Creatinine 0.76, Estim Creat Clear Calc 54.94, Est GFR (MDRD) Af Amer 128, Est GFR (MDRD) Non-Af 106, BUN/Creatinine Ratio 13.2, Glucose 114 H, Calcium 8.0 L Micro: Microbiology 01/19/22 17:40 Urine, Catheterized Urine Culture - Preliminary Culture exhibits no growth. 01/19/22 14:42 Nasal Secretion SARS-CoV-2 Antigen (Rapid) - Final Radiography Diagnostic Testing: Radiology Impression Hip/Pelvis X-Ray 01/20/22 14:00 IMPRESSION: Large surgical screw through the right femoral neck region appears to be in anatomic alignment. Electronically Signed: Miky Oquendo MD at 16:05 EDT , Hip X-Ray 01/20/22 16:10 IMPRESSION: 1. Surgical repair of a right intertrochanteric hip fracture and avulsion of the lesser tuberosity-as described above. 2. The right intertrochanteric region, right femoral neck, and femoral head are in anatomic alignment. 3. No dislocation of the right hip joint. 4. Surrounding soft tissue swelling and subcutaneous emphysema. Electronically Signed: Miky Oquendo MD at 16:42 EDT , Physical Exam Narrative Vital signs stable and afebrile. SCDs and ELIEZER hose are in place bilaterally Patient is able to plantarflex and dorsiflex actively. Sensation is intact to light touch to saphenous, sural, superficial and deep peroneal, and tibial distribution. Dressing is clean dry and intact. Patient currently is not with the knee immobilizer while in bed. Negative Homans bilaterally, negative signs and symptoms of DVT. Const alert, oriented x3 and no apparent distress Assessment & Plan Assessment/Plan (1) Closed intertrochanteric fracture of right hip: (2) Nondisplaced fracture of right patella: PLAN: Plan 1. S/P right hip cephalomedullary nail POD #1 2. Continue Pain Medications: Tylenol and tramadol as needed 3. DVT Prophylaxis: Take 81 mg aspirin twice daily for 4 weeks postoperatively for DVT prophylaxis. 4. PT/OT: Weightbearing as tolerated with walker. Patient should be wearing the knee immobilizer for the right nondisplaced patella fracture. 5. H & H: 10.30.9, asymptomatic. Postoperative anemia secondary to acute blood loss from surgery without any intra operative complications. 6. Encouraged Incentive Spirometry 7. Continue postoperative medical management per medicine: Patient has been dealing with some postoperative hypoxia. 8. Disposition: Orthopedically stable, okay for discharge when medically cleared and approval has been obtained for intermediate facility. Patient will continue with the dressings for 5 days postoperatively. Can remove dressing 5 days postoperatively. At that time okay to shower get incision wet but avoid submerging underwater for 6 weeks. Patient will continue with the knee immobilizer for the right knee nondisplaced patella fracture. Can weight-bear as tolerated with walker. Recommend aspirin 81 mg twice daily for 4 weeks postoperatively for DVT prophylaxis. Patient will require 2-week follow-up visit with [facility] with x-rays and suture/staple removal. Appreciate assistance with patient while in the hospital. Please contact orthopedics with any concerns or questions. This dictation was created using voice recognition software. Phonetic and/or grammatical errors may exist.
--- NOTE | 2022-01-21 15:08 | CASEMGMT ---
Discharge Incident Response Manager Katheryn haro/c drilling assistant talked with Susan at [facility]. 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 Also, If he becomes ambulatory again with the behaviors Susan thinks we need to look at other options. [facility] is declining referral at this time. Katheryn talked with Grace at [facility]. SONNY is reviewing. [facility] only has wander guard bracelets so if patient wander and with the behaviors [facility] is reviewing referral and will get back with Katheryn. Katheryn haro/pablito drilling assistant is going to send referral to [facility]. Plan: [facility] vs [facility], Waiting acceptance Katheryn Pagan Discharge Incident Response Manager
--- NOTE | 2022-01-21 20:35 | NURSING ---
FOUND PT HAD REMOVED OXYGEN NC, O2 SAT 70% ON RA. O2 REPLACED - O2 SAT UP TO 92% ON 2L NC. CONT PO APPLIED.
[2022-01-21] MEDS: MELATONIN 10 MG TABLET 5 MG PO (21:44)
[2022-01-21] MEDS: Atorvastatin Calcium 40 MG Tablet PO (21:44)
[2022-01-21] MEDS: RisperiDONE 0.5 MG Tablet PO (21:45)
[2022-01-22] VITALS (7 sets, daily range): BP systolic 108–142; BP diastolic 56–72; PULSE 73–89; RESP 18; TEMP 37.2–37.6; O2SAT 86–95
[2022-01-22] MEDS: LORazepam 0.5 MG Tablet PO ×4 (04:02→20:53)
[2022-01-22 07:26] LABS: Anion Gap 2 (5-15); BUN 14 mg/dL (7-18); BUN/Creat Ratio 20.6 RATIO (10-20); Calcium,Total 8.2 mg/dL (8.5-10.1); Chloride 103 mmol/L (98-107); Creatinine, Serum 0.68 mg/dL (0.70-1.30); EST Glomerular Filtration Rate 120 mL/min (>60); Est Glom Filt Rate - Afr Amer 145 mL/min (>60); Estimated Creatinine Clearance 54.94 ml/min; Glucose 124 mg/dL (74-106); Potassium 3.4 mmol/L (3.5-5.1); Sodium Level 138 mmol/L (136-145)
--- NOTE | 2022-01-22 09:48 | CASEMGMT ---
Addendum entered by Katheryn Pagan 01/22/22 09:52: Grace just reached out via email. [facility] is declining referral. Grace and staff think patient is in more need of a dementia unit. LV Gao notified. Katheryn Pagan Discharge Polymer Scientist Original Note: Discharge Polymer Scientist Katheryn d/c assistant chief nursing officer called Lyndsey with [facility] and left a voicemail. Katheryn called Grace at [facility]. Grace is in a meeting so Katheryn sent Grace an email to follow up on referral. Plan: [facility] vs [facility], Waiting acceptance Katheryn Pagan Discharge Polymer Scientist
[2022-01-22] MEDS: Furosemide 40 MG Tablet PO (09:49)
[2022-01-22] MEDS: Aspirin 81 MG TAB.CHEW PO ×2 (09:49→20:50)
[2022-01-22] MEDS: Citalopram 10 MG Tablet PO (09:49)
[2022-01-22] MEDS: Lisinopril 20 MG Tablet PO (09:49)
[2022-01-22] MEDS: Potassium Chloride Oral Tablet 20 MEQ PO (09:49)
[2022-01-22] MEDS: Senna/Docusate Sodium 1 Tablet 2 TABLET PO (09:49)
[2022-01-22] MEDS: Potassium Chloride Oral Tablet 20 MEQ 60 MEQ PO (09:49)
--- NOTE | 2022-01-22 09:56 | CASEMGMT ---
Discharge Driver/Sales Workers Katheryn called Lyndsey at [facility] and left a voicemail and also emailed Lyndsey. Katheryn also reached out to Grace at [facility]. [facility] is going to decline referral at this time. Grace and team think patient is more appropriate for a dementia unit which they do not have. LV Stover notified. Will keep following up with [facility]. Plan: [facility], Waiting acceptance. Katheryn Pagan Discharge Driver/Sales Workers
--- NOTE | 2022-01-22 11:30 | CASEMGMT ---
Discharge Dining Service Supervisor Katheryn d/c assistant therapy aide called Kourtney with [facility]. Katheryn expressed to Kourtney that Katheryn has not been able to get a hold of Lyndsey. Kourtney asked Katheryn to send referral to Kourtney email. Referral has been sent. Plan: [facility], Waiting Acceptance Katheryn Pagan Discharge Dining Service Supervisor
--- NOTE | 2022-01-22 12:17 | RAD_ITS ---
STUDY: X-RAY CHEST REASON FOR EXAM: Male, 76 years old. Hypoxia TECHNIQUE: Single AP portable view of the chest. COMPARISON: Comparison is made with prior study dated 01/22/2022. FINDINGS: Hyperinflation. Stable mild increased markings at the left lung base suggestive of a left basilar atelectasis. There is no demonstrated pleural abnormality. Normal size heart. Normal mediastinum and tonie. Normal visualized pulmonary arteries. There is atherosclerotic calcification of the aortic arch with tortuosity. There are degenerative changes of the visualized thoracic spine. Normal visualized ribs, clavicles, and shoulders. There is no demonstrated abnormality of the visualized soft tissue structures of the upper abdomen. RAD/Chest 1 View (Portable) IMPRESSION: Stable mild increased markings at the left lung base suggestive of atelectasis. Electronically Signed: Saurav Cisneros MD at 13:01 EDT ,
--- NOTE | 2022-01-22 15:17 | PCM.PN.HOSP ---
Subjective Subjective No issues overnight. Patient has his baseline mental status. Still requiring some supplemental oxygen but has been weaned to 2 L. Still awaiting for accepting facility with regards to discharge planning. Objective Data Objective Data Vital Signs: Vital Signs Temp Pulse Resp BP Pulse Ox O2 Del Method O2 Flow Rate 99.5 F H 88 18 108/57 L 95 Nasal Cannula 2 01/22/22 14:23 01/22/22 14:23 01/22/22 14:23 01/22/22 14:23 01/22/22 14:23 01/22/22 14:24 01/22/22 14:24 Oxygen Flow Rate (L/min) 2 Oxygen Delivery Method Nasal Cannula Weight: 69.5 kg Body Mass Index (BMI) 23.8 Intake & Output: Intake and Output for Last 24 Hours 01/20/22 01/21/22 01/22/22 23:59 23:59 23:59 Intake Total 2160 / 2160 1865 / 1865 50 / 50 Output Total 2900 / 2900 1450 / 1550 300 / 300 Balance -740 / -740 415 / 315 -250 / -250 Lab / Micro Data Result Diagrams: 01/21/22 06:50 01/22/22 07:00 Labs: Laboratory Results - last 24 hr 01/22/22 07:00: Sodium 138, Potassium 3.4 L, Chloride 103, Carbon Dioxide 33.0 H, Anion Gap 2 L, BUN 14, Creatinine 0.68 L, Estim Creat Clear Calc 54.94, Est GFR (MDRD) Af Amer 145, Est GFR (MDRD) Non-Af 120, BUN/Creatinine Ratio 20.6 H, Glucose 124 H, Calcium 8.2 L Micro: Microbiology 01/19/22 17:40 Urine, Catheterized Urine Culture - Final Culture exhibits no growth. 01/19/22 14:42 Nasal Secretion SARS-CoV-2 Antigen (Rapid) - Final Radiography Diagnostic Testing: Radiology Impression Chest X-Ray 01/22/22 12:17 IMPRESSION: Stable mild increased markings at the left lung base suggestive of atelectasis. Electronically Signed: Saurav Cisneros MD at 13:01 EDT , Physical Exam Const alert and no apparent distress Constitutional Narrative: Older white male lying in bed sleeping, patient care is currently at the bedside getting patient cleaned up, no current issues noted, patient is fairly nonverbal, intermittently pulling at his gown and Timmons Orientation / Consciousness: confused and disoriented HEENT head/scalp atraumatic and moist oral mucous membranes Resp normal respiratory effort, no retractions, no use of accessory muscles and clear to auscultation bilaterally Resp Narrative: Diminished but clear Auscultation: Negative for crackles, rales, rhonchi or wheezes Cardio regular rate, regular rhythm, S1 normal heart sound, S2 normal heart sound, no murmurs, no rub, no gallops, no clicks and no JVD GI normal to inspection, nondistended, normoactive bowel sounds, soft to palpation, non-tender and non-distended Extremity no clubbing, cyanosis or edema Extremity Narrative: Right lower extremity in long leg brace to reduce movement, postoperative dressing in place, no significant ecchymosis or soft tissue swelling Neuro Neuro Narrative: Very limited exam with patient's limited ability to follow commands consistently, does move upper extremities spontaneously, decreased movement right lower extremity secondary to leg brace in place, normal movement left lower extremity Psych Psych Narrative: Patient with severe dementia Assessment & Plan Assessment/Plan (1) Nondisplaced fracture of right patella: (2) Closed intertrochanteric fracture of right hip: (3) Anemia: (4) Debility: (5) Postoperative hypoxia: PLAN: Plan Right intertrochanteric fracture -Postop day 2 cephalomedullary nail -DVT prophylaxis with aspirin 81 mg twice daily -PT/OT consulted -Weightbearing as tolerated -Will need outpatient follow-up with orthopedic surgery in 2 weeks for postoperative x-rays and suture removal -Patient will need discharge to [facility]--> currently in [place] and placement is pending--> awaiting accepting facility Nondisplaced fracture of the right patella -Orthopedic surgery following -Recommendation is knee immobilizer for 2 weeks with removal at that time if he remains pain-free Postoperative hypoxia -Encourage incentive spirometry if able however severe dementia may limit this -Patient weaned to 2 L with oxygen saturation at 95% -Sats on room air were 86% on room air -Will add bronchodilators scheduled every 6 -Chest x-ray was performed and does not show any marked acute abnormalities -Suspect postoperative atelectasis Recent urinary tract infection -Organism unclear -Per request of family urinalysis and urine culture performed -UA is not consistent with infection at this time -Culture negative for growth COPD -Scheduled bronchodilators -As needed albuterol -I-S if possible Hypertension -Continue home Lasix/lisinopril -As needed hydralazine History of hyperlipidemia -Patient is not on statin therapy History of alcohol abuse -Patient sober for at least 30 years Severe dementia-type undetermined -Has had behavioral disturbances in the past -Avoid narcotics but okay for Ultram as narcotics make patient more agitated and combative -Will need placement upon discharge -Patient is enrolled to hospice at baseline and is in the intent of the family to reenroll him in hospice after discharge History of tobacco abuse -Continued cessation CODE STATUS -DNR CC Charges/Coding Visit Charges Inpatient E&M: 01431 Subs Hosp L2
--- NOTE | 2022-01-22 15:42 | CASEMGMT ---
Discharge Fire Range Technician Kourtney crain reached out via email. [facility] has been accepted to [facility]. Al Stover notified. Plan: [facility] Discharge Fire Range Technician
[2022-01-22] MEDS: traMADol 50 MG Tablet PO (16:04)
--- NOTE | 2022-01-22 16:05 | PCM.TXEXTCAR ---
Diet Diet Order/Speech Therapy: 01/22/22 01:13 Diet: Regular - General Is pt able to select menu?: No Routine Orders/Code Status O2 Liters per Minute: 2 O2 Frequency: wean as able Keep PO Greater than or Equal to (%): 92 Routine Lab Work: CBC (01/24/2022) and BMP (01/24/2022) Code Status: DNRCC Wound(s) RT HIP: Wound Type: Surgical Incision Therapies Weight Bearing: Weight bearing as tolerated Physical Therapy: Eval and Treat Occupational Therapy: Eval and Treat Speech Therapy: Eval and Treat Problem/Diagnosis (1) Nondisplaced fracture of right patella: Status: Acute Code(s): S82.001A - Unspecified fracture of right patella, initial encounter for closed fracture (2) Closed intertrochanteric fracture of right hip: Status: Acute Code(s): S72.141A - Displaced intertrochanteric fracture of right femur, initial encounter for closed fracture (3) Anemia: Status: Acute Code(s): D64.9 - Anemia, unspecified (4) Debility: Status: Acute Code(s): R53.81 - Other malaise (5) Postoperative hypoxia: Status: Acute Code(s): R09.02 - Hypoxemia; Z98.890 - Other specified postprocedural states Plan Right intertrochanteric fracture -Postop day 2 cephalomedullary nail -DVT prophylaxis with aspirin 81 mg twice daily -PT/OT consulted -Weightbearing as tolerated -Will need outpatient follow-up with orthopedic surgery in 2 weeks for postoperative x-rays and suture removal -Patient will need discharge to [facility]--> currently in [place] and placement is pending--> awaiting accepting facility Nondisplaced fracture of the right patella -Orthopedic surgery following -Recommendation is knee immobilizer for 2 weeks with removal at that time if he remains pain-free Postoperative hypoxia -Encourage incentive spirometry if able however severe dementia may limit this -Patient weaned to 2 L with oxygen saturation at 95% -Sats on room air were 86% on room air -Will add bronchodilators scheduled every 6 -Chest x-ray was performed and does not show any marked acute abnormalities -Suspect postoperative atelectasis Recent urinary tract infection -Organism unclear -Per request of family urinalysis and urine culture performed -UA is not consistent with infection at this time -Culture negative for growth COPD -Scheduled bronchodilators -As needed albuterol -I-S if possible Hypertension -Continue home Lasix/lisinopril -As needed hydralazine History of hyperlipidemia -Patient is not on statin therapy History of alcohol abuse -Patient sober for at least 30 years Severe dementia-type undetermined -Has had behavioral disturbances in the past -Avoid narcotics but okay for Ultram as narcotics make patient more agitated and combative -Will need placement upon discharge -Patient is enrolled to hospice at baseline and is in the intent of the family to reenroll him in hospice after discharge History of tobacco abuse -Continued cessation CODE STATUS -DNR CC Allergies/Procedures Done in Hospital Allergies Sulfa (Sulfonamide Antibiotics) Allergy (Verified 01/19/22 11:17) Unknown morphine Adverse Reaction (Verified 01/20/22 20:42) Other family states makes patient violent oxycodone HCl [From Percocet] Adverse Reaction (Verified 01/19/22 11:17) Other Procedures: EKG Type of Care/Length of Stay Estimated LOS: More Than 30 Days Type of Care Needed: Intermediate Rehab Potential: Fair Prognosis: Poor Additional Orders/Day of Discharge Day of Discharge: 01/22/22 Discharge Plan Admission Admit Date/Time: 01/19/22 14:48 Primary Reason for Your Visit: R Hip Fracture Attending Provider: Kaitlynn Umanzor Primary Care Provider: Loren Major Consulting Providers: Roland Gonzalez ; Heather Gallagher Discharge Orders/Prescriptions Prescriptions: New sennosides-docusate sodium [Stool Softener-Stimulant Laxat] 8.6-50 mg Tablet 2 tab PO BID Qty: 0 0RF tramadol 50 mg Tablet 50 - 100 mg PO Q6H PRN PRN (Reason: Pain Score 4-10) Qty: 8 0RF aspirin 81 mg Tablet,Chewable 81 mg PO BID Qty: 60 0RF Ensure Surgery 0.08-1.4 gram-kcal/mL Liquid 237 ml PO TIDCM Qty: 0 0RF ipratropium-albuterol 0.5 mg-3 mg(2.5 mg base)/3 mL Solution For Nebulization 3 ml inhalation Q6H.RT Qty: 0 0RF Continued loperamide 2 mg capsule 2 mg PO DAILY furosemide 20 mg tablet 40 mg PO DAILY Label Comments: take 1 tablet by mouth once daily citalopram 10 mg tablet 10 mg PO DAILY Label Comments: TAKE 1 TABLET BY MOUTH ONCE DAILY lorazepam 0.5 mg tablet 0.5 mg PO Q6H Label Comments: TAKE 1 TABLET BY MOUTH TWICE DAILY NEEDED FOR AGITATION FOR UP TO 30 DAYS risperidone 0.5 mg tablet 0.5 mg PO QHS lisinopril 20 mg Tablet 20 mg PO DAILY potassium chloride 20 mEq Tablet Extended Release 20 meq PO DAILY brimonidine-timolol [Combigan] 0.2-0.5 % Drops 1 drp BID melatonin 5 mg Tablet 5 mg PO QHS Referrals / Follow Up: Loren Major MD [Primary Care Provider] - Roland Gonzalez MD [Med Staff - Active Staff] - 02/04/22 2:00 pm Disposition Disposition (needs filled in before D/C Order can be placed): [facility]
--- NOTE | 2022-01-22 16:07 | DS.PCM_ITS ---
Providers Date of Admission: 01/19/22 Date of Discharge: 01/22/22 Primary Care Physician: Dr. Loren Major MD Consultations 01/19/22 15:52 Consult: Orthopedics Routine Consulting Provider: Roland Gonzalez Reason for Consult: Fall, hip fracture EMERGENT Consult: No MD Notified: Yes Date Notified: 01/19/22 Time Notified: 15:36 Method of Notification: ED Physician Initiated Reason For Visit: FALL, R HIP FX Diagnosis Discharge Diagnosis (1) Nondisplaced fracture of right patella: Status: Acute Code(s): S82.001A - Unspecified fracture of right patella, initial encounter for closed fracture (2) Closed intertrochanteric fracture of right hip: Status: Acute Code(s): S72.141A - Displaced intertrochanteric fracture of right femur, initial encounter for closed fracture (3) Anemia: Status: Acute Code(s): D64.9 - Anemia, unspecified (4) Debility: Status: Acute Code(s): R53.81 - Other malaise (5) Postoperative hypoxia: Status: Acute Code(s): R09.02 - Hypoxemia; Z98.890 - Other specified postprocedural states Plan Right intertrochanteric fracture -Postop day 2 cephalomedullary nail -DVT prophylaxis with aspirin 81 mg twice daily -PT/OT consulted -Weightbearing as tolerated -Will need outpatient follow-up with orthopedic surgery in 2 weeks for postoperative x-rays and suture removal -Patient will need discharge to [facility]--> currently in [place] and placement is pending--> awaiting accepting facility Nondisplaced fracture of the right patella -Orthopedic surgery following -Recommendation is knee immobilizer for 2 weeks with removal at that time if he remains pain-free Postoperative hypoxia -Encourage incentive spirometry if able however severe dementia may limit this -Patient weaned to 2 L with oxygen saturation at 95% -Sats on room air were 86% on room air -Will add bronchodilators scheduled every 6 -Chest x-ray was performed and does not show any marked acute abnormalities -Suspect postoperative atelectasis Recent urinary tract infection -Organism unclear -Per request of family urinalysis and urine culture performed -UA is not consistent with infection at this time -Culture negative for growth COPD -Scheduled bronchodilators -As needed albuterol -I-S if possible Hypertension -Continue home Lasix/lisinopril -As needed hydralazine History of hyperlipidemia -Patient is not on statin therapy History of alcohol abuse -Patient sober for at least 30 years Severe dementia-type undetermined -Has had behavioral disturbances in the past -Avoid narcotics but okay for Ultram as narcotics make patient more agitated and combative -Will need placement upon discharge -Patient is enrolled to hospice at baseline and is in the intent of the family to reenroll him in hospice after discharge History of tobacco abuse -Continued cessation CODE STATUS -DNR CC Medications at Discharge Home Medications furosemide 20 mg tablet 40 mg PO DAILY edema 10/13/21 loperamide 2 mg capsule 2 mg PO DAILY diarrhea 10/13/21 brimonidine 0.2 %-timolol 0.5 % eye drops (Combigan) 1 drp BID left eye 01/19/22 citalopram 10 mg tablet 10 mg PO DAILY depression 01/19/22 lisinopril 20 mg tablet 20 mg PO DAILY bp 01/19/22 lorazepam 0.5 mg tablet 0.5 mg PO Q6H restlessness 01/19/22 melatonin 5 mg tablet 5 mg PO QHS sleep 01/19/22 potassium chloride 20 mEq tablet,extended release 20 meq PO DAILY supplement 01/19/22 risperidone 0.5 mg tablet 0.5 mg PO QHS behavior 01/19/22 aspirin 81 mg chewable tablet 81 mg PO BID #60 tabs 01/22/22 ipratropium 0.5 mg-albuterol 3 mg (2.5 mg base)/3 mL nebulization soln 3 ml inhalation Q6H.RT #0 mL 01/22/22 nut.tx.comp. immune systm,reg 0.08 gram-1.4 kcal/mL oral liquid (Ensure Surgery) 237 ml PO TIDCM #0 mL 01/22/22 sennosides 8.6 mg-docusate sodium 50 mg tablet (Stool Softener-Stimulant Laxative) 2 tab PO BID #0 tabs 01/22/22 tramadol 50 mg tablet 50 - 100 mg PO Q6H PRN PRN Pain Score 4-10 #8 tabs 01/22/22 Hospital Course Operations - (Cephalomedullary nail 01/20/2022) Procedures EKG and - (Chest x-ray) Summary of Care Provided Minutes Spent on Discharge: 38 Hospital Course: Mr. Barrera is a 76-year-old white male with severe dementia who presented to the emergency department on 01/19/2022 with a fall resulting in a right closed intertrochanteric fracture of the hip. The patient is enrolled in hospice at baseline but this was revoked to come into the hospital to get a palliative surgical procedure performed for pain relief. He had been residing in an assisted living facility for memory care. The patient was in the dining room at the memory care facility when he rested his weight on the table and the table got out on him and he landed on his right side. He was unable to bear weight following. The patient is nonverbal at baseline. They noticed that he was grimacing more and significantly more agitated and suspected pain in that right hip. A knee x-ray was also performed in the emergency department which identified a nondisplaced transverse mid pole patellar fracture. He was placed in a knee immobilizer for this in the emergency department and admitted to the medical floor with consultation orthopedic surgery. Given his DNRCC status his did not want any further medical work-up prior to operative repair of his hip and understood the risks. He was taken to the OR on 01/20/2022 at which time a right hip cephalomedullary nail was placed. Aspirin 81 mg twice daily for 4 weeks in the postoperative period was recommended by orthopedic surgery for DVT prophylaxis. He is able to be weightbearing as tolerated with a walker but will need to continue to wear his knee immobilizer for 2 weeks and then follow-up with orthopedic surgery for reevaluation. He did fairly well in the postoperative period other than some postoperative hypoxia. We have been able to wean his oxygen down to 2 L and he diuresed well postoperatively however he is maintained on oxygen at this time. I have scheduled aerosols which we will continue at discharge. I predominately suspect that he has postoperative atelectasis as a chest x-ray performed on 01/22/2022 shows no infiltrate or acute process and is stable when compared to his preoperative chest x-ray. He is to continue his dressing in place for 5 days postoperatively and then the dressing may be removed. At that time is okay to shower and get the incision wet but submerging should be avoided for 6 weeks. A 2-week follow-up has already been scheduled with with orthopedics for follow-up x-rays and suture/staple removal. He is continued on his home medications and additional medications include Ultram for pain and aspirin for DVT prophylaxis. He was discharged to [facility] in stable condition and it is my understanding that if he were to decompensate or not do well family would like him reenrolled in hospice at that time. I do recommend the CBC and BMP be performed on 01/24/2022 to reevaluate his hemoglobin and his electrolytes. His potassium was slightly low on the days of discharge at 3.4 and was replaced with 40 mill equivalents of p.o. potassium at that time. 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 History of tobacco abuse Physical Exam Narrative See exam performed earlier today in my progress note Weight / BMI Weight Weight: 69.5 kg Body Mass Index (BMI) 23.8 ABG / Lab / Microbiology Data Result Diagrams: 01/21/22 06:50 01/22/22 07:00 Laboratory: Laboratory Results - last 24 hr 01/22/22 07:00: Sodium 138, Potassium 3.4 L, Chloride 103, Carbon Dioxide 33.0 H , Anion Gap 2 L, BUN 14, Creatinine 0.68 L, Estim Creat Clear Calc 54.94, Est GFR (MDRD) Af Amer 145, Est GFR (MDRD) Non-Af 120, BUN/Creatinine Ratio 20.6 H, Glucose 124 H, Calcium 8.2 L Microbiology: Microbiology 01/19/22 17:40 Urine, Catheterized Urine Culture - Final Culture exhibits no growth. 01/19/22 14:42 Nasal Secretion SARS-CoV-2 Antigen (Rapid) - Final Radiography Diagnostic Testing: Radiology Impression Chest X-Ray 01/22/22 12:17 IMPRESSION: Stable mild increased markings at the left lung base suggestive of atelectasis. Electronically Signed: Saurav Cisneros MD at 13:01 EDT , D/C Instructions Discharge Diet: No restrictions Meaningful Use Info Meaningful Use Diagnoses (Choose all that apply): None applicable Discharge Plan Admission Admit Date/Time: 01/19/22 14:48 Primary Reason for Your Visit: R Hip Fracture Attending Provider: Kaitlynn Umanzor Primary Care Provider: Loren Major Consulting Providers: Roland Gonzalez ; Heather Gallagher Discharge Orders/Prescriptions Prescriptions: New sennosides-docusate sodium [Stool Softener-Stimulant Laxat] 8.6-50 mg Tablet 2 tab PO BID Qty: 0 0RF tramadol 50 mg Tablet 50 - 100 mg PO Q6H PRN PRN (Reason: Pain Score 4-10) Qty: 8 0RF aspirin 81 mg Tablet,Chewable 81 mg PO BID Qty: 60 0RF Ensure Surgery 0.08-1.4 gram-kcal/mL Liquid 237 ml PO TIDCM Qty: 0 0RF ipratropium-albuterol 0.5 mg-3 mg(2.5 mg base)/3 mL Solution For Nebulization 3 ml inhalation Q6H.RT Qty: 0 0RF Continued loperamide 2 mg capsule 2 mg PO DAILY furosemide 20 mg tablet 40 mg PO DAILY Label Comments: take 1 tablet by mouth once daily citalopram 10 mg tablet 10 mg PO DAILY Label Comments: TAKE 1 TABLET BY MOUTH ONCE DAILY lorazepam 0.5 mg tablet 0.5 mg PO Q6H Label Comments: TAKE 1 TABLET BY MOUTH TWICE DAILY NEEDED FOR AGITATION FOR UP TO 30 DAYS risperidone 0.5 mg tablet 0.5 mg PO QHS lisinopril 20 mg Tablet 20 mg PO DAILY potassium chloride 20 mEq Tablet Extended Release 20 meq PO DAILY brimonidine-timolol [Combigan] 0.2-0.5 % Drops 1 drp BID melatonin 5 mg Tablet 5 mg PO QHS Referrals / Follow Up: Loren Major MD [Primary Care Provider] - Roland Gonzalez MD [Med Staff - Active Staff] - 02/04/22 2:00 pm Disposition Disposition (needs filled in before D/C Order can be placed): [facility]-Way Facility Charges/Coding Visit Charges Inpatient E&M: 24005 SNF Disch >30 Min
--- NOTE | 2022-01-22 16:12 | CASEMGMT ---
Social Work SW met with pt and informed her that pt was denied at [facility] and [facility] but [facility] is able to accept him. SW explained that pt will go under his Medicare Benefit and SW explained that continued stay is dependent on pt's progress with therapy. 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 SW informed physician who states pt is ready for discharge today. Pt updated and unhappy stating she hasn't even checked [facility] out to see if she likes it. In conversation yesterday with LV Gao, pt gave [facility] as a facility of choice. SW explained pt does not have medical need for continued stay at hospital. frustrated but agreeable to discharge and SW offered to set up transport at a time she prefers and states whenever you want. left hospital to go tour [facility]. 7000 convalescent form completed and faxed along with orders to [facility]. Phone call to [facility] and notified of discharge today. Nursing updated that covid test is needed. Transportation will be arranged and notified of time once covid results are obtained. NISHA Samson
--- NOTE | 2022-01-22 17:41 | NURSING ---
supervisor seaming time at 9pm, report called to [facility] and they will await his arrival.
[2022-01-22] MEDS: Atorvastatin Calcium 40 MG Tablet PO (20:50)
[2022-01-22] MEDS: MELATONIN 10 MG TABLET 5 MG PO (20:50)
[2022-01-22] MEDS: RisperiDONE 0.5 MG Tablet PO (20:50)
--- NOTE | 2022-01-23 11:01 | CASEMGMT ---
Social Work [facility] updated that pt discharge to [facility] of care on 01/22/22. NISHA Samson
== END 2022-01-22 21:15 | disposition skilled nursing facility (03) | DRG 481 ==
LOC: ED 15:03 → MS3 15:13
PROVIDERS: Specialist; Admitting Provider Family Medicine; Emergency Provider Emergency Medicine; PCP Family Medicine; Visit Provider Internal Medicine
PROC: 0QS636Z Reposition Right Upper Femur with Intramedullary Internal Fixation Device, Percutaneous Approach (ICD-10-PCS; CPT 27245; principal; 2022-01-20 13:30)
DX: S72.141A Displaced intertrochanteric fracture of right femur, initial encounter for closed fracture (principal); F03.91 Unspecified dementia, unspecified severity, with behavioral disturbance; S82.001A Unspecified fracture of right patella, initial encounter for closed fracture; J98.11 Atelectasis; D62 Acute posthemorrhagic anemia; J44.9 Chronic obstructive pulmonary disease, unspecified; E78.5 Hyperlipidemia, unspecified; S51.011A Laceration without foreign body of right elbow, initial encounter; I10 Essential (primary) hypertension; W18.30XA Fall on same level, unspecified, initial encounter; F41.9 Anxiety disorder, unspecified; F32.A Depression, unspecified; Z66 Do not resuscitate; R53.81 Other malaise; Y93.9 Activity, unspecified; Y99.9 Unspecified external cause status; Y92.128 Other place in nursing home as the place of occurrence of the external cause; Z23 Encounter for immunization; Z79.899 Other long term (current) drug therapy; Z87.891 Personal history of nicotine dependence; Z87.440 Personal history of urinary (tract) infections; R09.02 Hypoxemia
CPT/HCPCS: 36415; 71045; 73501; 73502; 73560; 73610; 73620; 76000; 80048; 80053; 81001; 83735; 85025; 85610; 85730; 86850; 86900; 86901; 87086; 87811; 90715; 93005; 97162; 97167; 97530; 99251; 99285; C1713; J7030; A4216; G0463; J1940; J2405

== ENCOUNTER 2022-01-28 19:14 | Inpatient (IN) | payer MEDICARE, OTHER, SELFPAY ==
[2022-01-28] VITALS (9 sets, daily range): BP systolic 105–129; BP diastolic 53–75; PULSE 94–110; RESP 22–30; TEMP 37.3–38.1; O2SAT 85–98; BMI 22.4; BMI 21.7
--- NOTE | 2022-01-28 19:40 | CT_ITS ---
STUDY: CT Abdomen And Pelvis W/ Contrast Injection 01/28/2022 9:25 PM REASON FOR EXAM: Male, 76 years old. Abdominal pain abdominal distention Individualized dose optimization techniques were used for this CT. COMPARISON: Prior comparison studies are not available for review at this time. TECHNIQUE: CT Abdomen And Pelvis W/ Contrast Injection IV 100mL Isovue-370 FINDINGS: There are atherosclerotic calcifications of visualized coronary arteries. There is bilateral pneumonia. There are bilateral pleural effusions. Normal liver. There is a solitary gallstone. Normal spleen. Normal pancreas. Normal bilateral adrenal glands. There are hypodensities in the right kidney. These are consistent for cysts. No follow up required. There are hypodensities in the left kidney. These are consistent for cysts. No follow up required. There is a hiatal hernia. Normal small intestine. There are multiple colonic diverticula consistent with diverticulosis. There is non-visualization of the appendix. There are calcifications of the abdominal aorta. This is consistent for atherosclerotic disease. There is NO abdominal aortic aneurysm. Vascular workup can be obtained based on clinical correlation. Normal inferior vena cava. Subcentimeter mesenteric lymph nodes. There is diffuse gastric distention. This may be related to partial gastric outlet obstruction. Normal urinary bladder. There is metallic hardware noted in the right hip. Esophageal wall thickening may suggest an esophagitis. Normal abdominal wall. There are diffuse degenerative changes of the visualized lumbar spine. CT/Abdomen/Pelvis WITH Contrast IMPRESSION: (NOT LISTED IN ORDER OF SIGNIFICANCE) Esophageal wall thickening may suggest an esophagitis. There is diffuse gastric distention. This may be related to partial gastric outlet obstruction or gastroparesis. The cause of the obstruction is not identified. NG tube placement is recommended. There are bilateral pleural effusions. There is bilateral pneumonia. There is a solitary gallstone. There are multiple colonic diverticula consistent with diverticulosis.Other findings as above. Electronically Signed: Vince Brito MD at 21:29 EDT ,
--- NOTE | 2022-01-28 19:40 | CT_ITS ---
EXAM: CT ANGIOGRAPHY CHEST WITHOUT AND WITH INTRAVENOUS CONTRAST CLINICAL INDICATION: Hypoxic respiratory failure TECHNIQUE: Helically acquired angiography images were obtained of the chest without and with intravenous contrast. This CT exam was performed using one or more of the following dose reduction techniques: automated exposure control, adjustment of the mA and/or kV according to patient size, and/or use of iterative reconstruction technique. This report was created using Dot[employer] report generation technology. MIP reconstructed images were created and reviewed. CONTRAST: IV 100mL Isovue-370 RADIATION DOSE: CTDIvol = 10.36 mGy, DLP = 720.85 mGy-cm COMPARISON: cxr 07.14.17 FINDINGS: PULMONARY ARTERIES: No demonstrated pulmonary embolism or arterial dissection. AORTA: There is atherosclerotic calcification of the aortic arch with tortuosity and elongation of the aortic arch and descending thoracic aorta. Normal in caliber. No evidence of dissection. GREAT VESSELS OF AORTIC ARCH: Unremarkable. Normal in caliber. No evidence of dissection. LUNGS AND PLEURAL SPACES: There is bilateral pneumonia. There are bilateral pleural effusions. No mass. HEART: There are calcifications of the coronary arteries. No pericardial effusion. No signs of right heart strain, ratio of right ventricle to left ventricle measures less than 1. MEDIASTINUM: Unremarkable. No mediastinal or hilar adenopathy. Esophagus is unremarkable. No hiatal hernia. THYROID: Unremarkable. No thyroid lesions. BONES/JOINTS: Stable mid thoracic vertebral body compression deformity. There are degenerative changes of the shoulders. There are multi-level degenerative changes of the thoracic spine. No suspicious lytic or blastic abnormality. TUBES, LINES AND DEVICES: There is diffuse gastric distention. This may be related to partial gastric outlet obstruction or gastroparesis. The cause of the obstruction is not identified. NG tube placement is recommended. CT/CTA Chest W/WO Contrast IMPRESSION: 1. No demonstrated pulmonary embolism or arterial dissection. 2. There is bilateral pneumonia. There are bilateral pleural effusions. 3. There is diffuse gastric distention. This may be related to partial gastric outlet obstruction or gastroparesis. The cause of the obstruction is not identified. NG tube placement is recommended. Electronically Signed: Vince Brito MD at 21:33 EDT ,
--- NOTE | 2022-01-28 19:41 | EKG12_ITS ---
Test Reason : ALT LOC Blood Pressure : / mmHG Vent. Rate : 113 BPM Atrial Rate : 113 BPM P-R Int : 112 ms QRS Dur : 090 ms QT Int : 316 ms P-R-T Axes : 069 -09 081 degrees QTc Int : 433 ms Sinus tachycardia Nonspecific ST abnormality Abnormal ECG Confirmed by ORLANDO JONES, ADAMA ([id number]), editor at large NIEVES MATA ([id number]) on 01/30/2022 9:38:24 AM Referred By: Confirmed By:ADAMA PERYR MD
--- NOTE | 2022-01-28 19:45 | EX.ED.DYSGE1 ---
HPI History of Present Illness Chief Complaint: Alt LOC Narrative Narrative: 76-year-old male presenting with altered mental status. Patient is alert to self at baseline and unable to give any information. His family states he had a recent hip surgery secondary to hip fracture on the right. He has been at [facility]. They state that he at baseline cannot get up and care for himself. They state that over the last 2 days he has had some nausea and vomiting. They do not believe he has been constipated. There is no report of any fever. They state that they generally just look at his face to try and determine what is going on with him. He is unable to communicate symptoms. They do note that he is a DNR comfort care or told to come to the emergency room to get an ultrasound of his abdomen to rule out an obstruction. Patient does have increased oxygen demands. Family does note that they do not want him intubated. They do not want him to have CPR. [facility] Medical History Abnormal findings on diagnostic imaging of heart/coronary circulation Basal cell carcinoma (BCC) of antihelix of ear Benign neoplasm of colon Benign prostatic hyperplasia with lower urinary tract symptoms Chronic bronchitis COPD (chronic obstructive pulmonary disease) Dementia Essential hypertension Former tobacco use Glaucoma Hyperlipemia Mild cognitive impairment Recovering alcoholic in remission Restlessness and agitation Home Medications furosemide 20 mg tablet 40 mg PO DAILY edema 10/13/21 [History Last Taken Unknown] loperamide 2 mg capsule 2 mg PO DAILY diarrhea 10/13/21 [History Last Taken Unknown] brimonidine 0.2 %-timolol 0.5 % eye drops (Combigan) 1 drp BID left eye 01/19/22 [History Last Taken Unknown] citalopram 10 mg tablet 10 mg PO DAILY depression 01/19/22 [History Last Taken Unknown] lisinopril 20 mg tablet 20 mg PO DAILY bp 01/19/22 [History Last Taken Unknown] lorazepam 0.5 mg tablet 0.5 mg PO Q6H restlessness 01/19/22 [History Last Taken Unknown] melatonin 5 mg tablet 5 mg PO QHS sleep 01/19/22 [History Last Taken Unknown] potassium chloride 20 mEq tablet,extended release 20 meq PO DAILY supplement 01/19/22 [History Last Taken Unknown] risperidone 0.5 mg tablet 0.5 mg PO QHS behavior 01/19/22 [History Last Taken Unknown] aspirin 81 mg chewable tablet 81 mg PO BID #60 tabs 01/22/22 [Rx Last Taken Unknown] ipratropium 0.5 mg-albuterol 3 mg (2.5 mg base)/3 mL nebulization soln 3 ml inhalation Q6H.RT #0 mL 01/22/22 [Rx Last Taken Unknown] nut.tx.comp. immune systm,reg 0.08 gram-1.4 kcal/mL oral liquid (Ensure Surgery) 237 ml PO TIDCM #0 mL 01/22/22 [Rx Last Taken Unknown] sennosides 8.6 mg-docusate sodium 50 mg tablet (Stool Softener-Stimulant Laxative) 2 tab PO BID #0 tabs 01/22/22 [Rx Last Taken Unknown] tramadol 50 mg tablet 50 - 100 mg PO Q6H PRN PRN Pain Score 4-10 #8 tabs 01/22/22 [Rx Last Taken Unknown] Allergy/AdvReac Type Severity Reaction Status Date / Time Sulfa (Sulfonamide Allergy Unknown Verified 01/28/22 19:24 Antibiotics) morphine AdvReac Other Verified 01/28/22 19:24 oxycodone HCl [From Percocet] AdvReac Other Verified 01/28/22 19:24 Family History Mother COPD (chronic obstructive pulmonary disease) Father COPD (chronic obstructive pulmonary disease) Surgical History History of surgery on lower extremity S/P TURP Status post tonsillectomy and adenoidectomy Social History household members: none housing: alf Smoking Status: Former smoker how long ago did patient quit smoking: Quit tobacco use 10 years prior, smoked ~ 2-3 ppd since late teens. alcohol intake: former details: Recovered alcoholic, > 30 years sobriety, noted start in the late 80s. ROS ROS ED Review of Systems ROS Unobtainable: due to mental status EXAM Physical Exam Const Vital Signs: 01/28/22 19:15 01/28/22 19:19 01/28/22 19:19 Temperature 99.4 F H 99.4 F H Temperature Source Axillary Axillary Pulse Rate 110 H 110 H Respiratory Rate 22 H 22 H Respiratory Pattern Tachypnea Blood Pressure 129/67 H 129/67 H Blood Pressure Mean 87 87 Pulse Ox 95 95 Oxygen Delivery Method Non-Rebreather Non-Rebreather Oxygen Flow Rate (L/min) 15 15 01/28/22 19:59 01/28/22 19:59 01/28/22 20:01 Temperature 99.4 F H Temperature Source Axillary Pulse Rate Respiratory Rate Respiratory Pattern Blood Pressure Blood Pressure Mean Pulse Ox 92 91 Oxygen Delivery Method Nasal Cannula Nasal Cannula Oxygen Flow Rate (L/min) 2 3 01/28/22 20:10 01/28/22 20:10 01/28/22 20:19 Temperature 99.2 F H Temperature Source Axillary Pulse Rate 110 H Respiratory Rate 27 H 30 H Respiratory Pattern Blood Pressure 110/69 Blood Pressure Mean 82 Pulse Ox 85 94 95 Oxygen Delivery Method Nasal Cannula Non-Rebreather Non-Rebreather Oxygen Flow Rate (L/min) 6 15 15 01/28/22 21:01 01/28/22 21:01 Temperature 99.2 F H 99.2 F H Temperature Source Axillary Axillary Pulse Rate 99 Respiratory Rate 29 H Respiratory Pattern Blood Pressure 105/66 Blood Pressure Mean 79 Pulse Ox 98 Oxygen Delivery Method Non-Rebreather Oxygen Flow Rate (L/min) 15 Positive unkempt General Appearance ED: unkempt and other Unable to answer questions. ; Negative for pallor HEENT Reports dry mucous membranes Mouth ED: Yes dry mucous membranes Mouth: dry mucous membranes Chest Wall inspection of chest normal Resp Resp Narrative: Tachypneic. Bibasilar crackles greater on the right lower lung field. No wheezing appreciated. Cardio regular rhythm Rate: tachycardic GI GI Narrative: Patient does not wince in pain when his abdomen is palpated. It appears to be mildly distended. It is still soft. Neuro Sensorium / Orientation: stuporous Psych Appearance: unkempt Skin General Skin Exam: Negative for jaundice or pallor MDM MDM MDM Narrative Medical decision making narrative: Patient seen and evaluated on arrival for altered mental status although his baseline is alert to self and he is very demented. He had a recent hip fracture which was fixed and he is currently at a full nursing facility. Apparently he has been vomiting for couple of days. Family states they do believe he has been having bowel movements. They do state that he is unable to get up or turn himself on his own and they can discern that he might of vomited and aspirated. On examination he does have some crackles in the lung bases the right greater than left. They are fairly adamant on arrival that they are not going to do anything aggressive as far as surgery, intubation, CPR they want to know what why his abdomen is distended and why he is confused. They understand that he is a poor surgical candidate and they do not want any surgery. Patient tachycardic, tachypneic on arrival and had altered mental status. Sepsis work-up was pursued. EKG on my interpretation shows a sinus tachycardia with a ventricular 113 bpm. High-sensitivity troponin is 56. Chest x-ray on my interpretation does not show any acute cardiopulmonary process. Clinically had concern for aspiration pneumonia and since the patient was recently admitted I cover him with vancomycin and Zosyn to cover for hospital-acquired pneumonia. Patient is on 15 L nonrebreather and I did asked the family if they wanted him to be on BiPAP but they declined.. CBC shows a 27,000 white count with a left shift. Hemoglobin stable at 12.7. Coagulation studies are normal. Ammonia level slightly elevated at 43. Lactic acid is 1.6. Urinalysis is negative for infection. Creatinine and GFR are normal however the patient is dehydrated he was given 2 L of IV fluids. His sodium is also slightly elevated. CT of the chest was obtained and shows bilateral pneumonia and bilateral pleural effusions. CT of the abdomen pelvis with IV contrast shows concern for gastric outlet obstruction or gastroparesis. At this point I had a lengthy conversation with the patient's family and although they know he is not a good surgical candidate they are amenable to putting an NG down to try to alleviate some of his discomfort. This was initially placed in prior to getting images and he vomited and it came out. This will need to be replaced. He is given a dose of Zofran. This point the patient will be due to be admitted for bilateral ammonia and altered mental status although the family does acknowledge that they will not be doing anything aggressive other than IV antibiotics and an NG tube. Patient was discussed with the hospitalist for admission. Impression: 1. Hypoxic respiratory failure 2. Bilateral pneumonia 3. Leukocytosis 4. Sepsis 5. Dehydration 6. Hyperammonemia 7. Hypernatremia Lab Data Attestation: I reviewed the patient's lab results. Labs: Laboratory Results - last 24 hr 01/28/22 01/28/22 01/28/22 19:25 19:25 19:25 WBC 27.0 H RBC 4.21 L Hgb 12.7 L Hct 40.6 MCV 96.4 H MCH 30.2 MCHC 31.3 L RDW Std Deviation 48.9 H RDW Coeff of Jj 14.1 Plt Count 638 H MPV 10.8 Immature Gran % (Auto) 1.000 H Neut % (Auto) 90.5 H Lymph % (Auto) 3.6 L [place] % (Auto) 4.4 Eos % (Auto) 0.2 Baso % (Auto) 0.3 Absolute Neuts (auto) 24.5 H Absolute Lymphs (auto) 0.98 Nucleated RBC % 0 Differential Comment SCANNED PT 14.5 INR 1.2 APTT 27.3 Sodium Potassium Chloride Carbon Dioxide Anion Gap BUN Creatinine Estim Creat Clear Calc Est GFR (MDRD) Af Amer Est GFR (MDRD) Non-Af BUN/Creatinine Ratio Glucose Lactic Acid Calcium Total Bilirubin AST ALT Alkaline Phosphatase Ammonia 43.0 H Troponin I High Sens Total Protein Albumin Globulin Albumin/Globulin Ratio Urine Color Urine Clarity Urine pH Ur Specific [place] Urine Protein Urine Glucose (UA) Urine Ketones Urine Occult Blood Urine Nitrite Urine Bilirubin Urine Urobilinogen Ur Leukocyte Esterase 01/28/22 01/28/22 01/28/22 19:25 19:25 21:50 WBC RBC Hgb Hct MCV MCH MCHC RDW Std Deviation RDW Coeff of Jj Plt Count MPV Immature Gran % (Auto) Neut % (Auto) Lymph % (Auto) [place] % (Auto) Eos % (Auto) Baso % (Auto) Absolute Neuts (auto) Absolute Lymphs (auto) Nucleated RBC % Differential Comment PT INR APTT Sodium 150 H Potassium 4.2 Chloride 116 H Carbon Dioxide 29.0 Anion Gap 5 BUN 28 H Creatinine 0.99 Estim Creat Clear Calc 54.97 Est GFR (MDRD) Af Amer 94 Est GFR (MDRD) Non-Af 77 BUN/Creatinine Ratio 28.2 H Glucose 201 H Lactic Acid 1.6 Calcium 8.7 Total Bilirubin 0.80 AST 11 L ALT 29 Alkaline Phosphatase 103 Ammonia Troponin I High Sens 56 Total Protein 6.9 Albumin 2.7 L Globulin 4.2 Albumin/Globulin Ratio 0.6 L Urine Color Yellow Urine Clarity Clear Urine pH 6.5 Ur Specific [place] 1.010 Urine Protein 30 H Urine Glucose (UA) Normal Urine Ketones Negative Urine Occult Blood Negative Urine Nitrite Negative Urine Bilirubin Negative Urine Urobilinogen 1 H Ur Leukocyte Esterase 25 H Radiography Diagnostic Testing: Clinical Impression(s) from Imaging Studies Abdomen/Pelvis CT 01/28/22 19:40 IMPRESSION: (NOT LISTED IN ORDER OF SIGNIFICANCE) Esophageal wall thickening may suggest an esophagitis. There is diffuse gastric distention. This may be related to partial gastric outlet obstruction or gastroparesis. The cause of the obstruction is not identified. NG tube placement is recommended. There are bilateral pleural effusions. There is bilateral pneumonia. There is a solitary gallstone. There are multiple colonic diverticula consistent with diverticulosis.Other findings as above. Electronically Signed: Vince Brito MD at 21:29 EDT , Chest CTA 01/28/22 19:40 IMPRESSION: 1. No demonstrated pulmonary embolism or arterial dissection. 2. There is bilateral pneumonia. There are bilateral pleural effusions. 3. There is diffuse gastric distention. This may be related to partial gastric outlet obstruction or gastroparesis. The cause of the obstruction is not identified. NG tube placement is recommended. Electronically Signed: Vince Brito MD at 21:33 EDT , Chest X-Ray 01/28/22 20:08 IMPRESSION: Partially visualized diffuse gaseous distention of the area of the upper abdomen. CT can better evaluate. Electronically Signed: Vince Brito MD at 20:30 EDT , Discharge Plan Triage Chief Complaint: Alt LOC Other Complaint: Nausea/Vomiting ED Provider: Alvaro Pandey Dx/Rx/DC Orders Prescriptions: No Action loperamide 2 mg capsule 2 mg PO DAILY furosemide 20 mg tablet 40 mg PO DAILY Label Comments: take 1 tablet by mouth once daily citalopram 10 mg tablet 10 mg PO DAILY Label Comments: TAKE 1 TABLET BY MOUTH ONCE DAILY lorazepam 0.5 mg tablet 0.5 mg PO Q6H Label Comments: TAKE 1 TABLET BY MOUTH TWICE DAILY NEEDED FOR AGITATION FOR UP TO 30 DAYS risperidone 0.5 mg tablet 0.5 mg PO QHS lisinopril 20 mg Tablet 20 mg PO DAILY potassium chloride 20 mEq Tablet Extended Release 20 meq PO DAILY brimonidine-timolol [Combigan] 0.2-0.5 % Drops 1 drp BID melatonin 5 mg Tablet 5 mg PO QHS sennosides-docusate sodium [Stool Softener-Stimulant Laxat] 8.6-50 mg Tablet 2 tab PO BID Qty: 0 0RF tramadol 50 mg Tablet 50 - 100 mg PO Q6H PRN PRN (Reason: Pain Score 4-10) Qty: 8 0RF aspirin 81 mg Tablet,Chewable 81 mg PO BID Qty: 60 0RF Ensure Surgery 0.08-1.4 gram-kcal/mL Liquid 237 ml PO TIDCM Qty: 0 0RF ipratropium-albuterol 0.5 mg-3 mg(2.5 mg base)/3 mL Solution For Nebulization 3 ml inhalation Q6H.RT Qty: 0 0RF Primary Care Provider: Loren Major Referrals: Loren Major MD [Primary Care Provider] -
[2022-01-28] MEDS: 0.9% Normal Saline 1,000 ML 999 ML IV ×2 (20:01→22:30)
--- NOTE | 2022-01-28 20:08 | RAD_ITS ---
STUDY: XR Chest 1 View 01/28/2022 8:08 PM REASON FOR EXAM: Male, 76 years old. CHEST PAIN weakness COMPARISON: None TECHNIQUE: XR Chest 1 View FINDINGS: There is no demonstrated pleural abnormality. Normal heart size. Normal mediastinum. Normal tonie. Prominent appearing increased interstitial lung markings. Normal visualized pulmonary arteries. There is atherosclerotic calcification of the aortic arch with tortuosity. There are diffuse degenerative changes of the visualized thoracic spine. There is degenerative osteoarthritis of the bilateral shoulders. Partially visualized diffuse gaseous distention of the area of the upper abdomen. RAD/Chest 1 View (Portable) IMPRESSION: Partially visualized diffuse gaseous distention of the area of the upper abdomen. CT can better evaluate. Electronically Signed: Vince Brito MD at 20:30 EDT ,
[2022-01-28 20:18] LABS: Absolute Lymphocyte Count 0.98 X10^3/uL (0.83-4.51); Absolute Neutrophil Count 24.5 X10^3/uL (2.0-7.7); Basophil# 0.07 X10^3/uL; Basophil% 0.3 % (0-1); Eosinophil# 0.06 X10^3/uL; Eosinophils% 0.2 % (0-5); Hematocrit 40.6 % (40-54); Hemoglobin 12.7 g/dL (13.0-16.5); Lymphocyte # 0.98 X10^3/ul (0.83-4.51); Lymphocyte % 3.6 % (19-41); Mean Corp Hgb Conc 31.3 g/dL (32-36); Mean Corpuscular Hgb 30.2 pg (27.0-32.0); Mean Corpuscular Volume 96.4 fL (80-94); Mean Platelet Vol. 10.8 fl (6.2-12.0); Monocyte% 4.4 % (0-10); NRBC Flagged by Analyzer 0 % (0-5); Neutrophil # 24.45 X10^3/uL (2.7-7.7); Neutrophil % 90.5 % (47-70); POSITIVE DIFFERENTIAL YES; Platelet Count 638 K/mm3 (150-450); RBC Distribution Width CV 14.1 % (11.6-14.6); RBC Distribution Width SD 48.9 fl (35.1-43.9); Red Blood Count 4.21 M/mm3 (4.6-6.2)
[2022-01-28 20:20] LABS: Differential Indicated SCAN CRITERIA MET
[2022-01-28 20:22] LABS: International Normalized Ratio 1.2; Prothrombin Time (Protime)PT. 14.5 SECONDS (11.7-14.9)
[2022-01-28 20:23] LABS: Partial Thromboplast Time 27.3 Seconds (24.1-36.2)
--- NOTE | 2022-01-28 20:23 | ED.RN ---
PER DR. CADENA TRY BIPAP. PT AND FRIEND REFUSING BIPAP AT THIS TIME. STATING WE JUST WANT TO KEEP HIM COMFORTABLE
[2022-01-28 20:29] LABS: Lactic Acid 1.6 mmol/L (0.4-1.9)
[2022-01-28 20:36] LABS: ALB/GLOB Ratio 0.6 RATIO (0.9-2.4); AST(SGOT) 11 U/L (15-37); Alanine Aminotransfer ALT/SGPT 29 U/L (16-61); Albumin, Serum 2.7 g/dL (3.2-5.0); Alkaline Phosphatase 103 U/L (45-117); Anion Gap 5 (5-15); BUN 28 mg/dL (7-18); BUN/Creat Ratio 28.2 RATIO (10-20); Calcium,Total 8.7 mg/dL (8.5-10.1); Chloride 116 mmol/L (98-107); Creatinine, Serum 0.99 mg/dL (0.70-1.30); EST Glomerular Filtration Rate 77 mL/min (>60); Est Glom Filt Rate - Afr Amer 94 mL/min (>60); Estimated Creatinine Clearance 54.97 ml/min; Globulin 4.2 g/dL (2.2-4.2); Glucose 201 mg/dL (74-106); Potassium 4.2 mmol/L (3.5-5.1); Protein, Total 6.9 g/dL (6.4-8.2); Sodium Level 150 mmol/L (136-145); Troponin-I HS 56 pg/mL (3.0-78.0)
[2022-01-28] MEDS: Vancomycin IV 1,000 MG/200 ML BAG 200 MG IV (21:00)
[2022-01-28 21:24] LABS: Differential Comment SCANNED
--- NOTE | 2022-01-28 21:47 | HP.PCM.HOS_ITS ---
HPI - General General Date of Admission: 01/28/22 Date of Service: 01/28/22 Chief Complaint: vomiting HPI Narrative RYAN BARTH, is a 76 M with a significant history of COPD and dementia who lives at the [facility] ([place]) and presents to the emergency department with nausea and vomiting that started a day before presentation. Associated with his symptom is hypoxia at the [facility]. Reportedly on presentation patient oxygen saturation was 83% on room air and required 15 L of nonrebreather mask. At baseline patient is confused. History was taken from emergent department doctor and patient's family who was at the bedside. Family does not know the last time patient bowels moved. Family report that the patient has coffee-ground emesis. [facility] Medical History Abnormal findings on diagnostic imaging of heart/coronary circulation Basal cell carcinoma (BCC) of antihelix of ear Benign neoplasm of colon Benign prostatic hyperplasia with lower urinary tract symptoms Chronic bronchitis COPD (chronic obstructive pulmonary disease) Dementia Essential hypertension Former tobacco use Glaucoma Hyperlipemia Mild cognitive impairment Recovering alcoholic in remission Restlessness and agitation Home Medications furosemide 20 mg tablet 40 mg PO DAILY edema 10/13/21 [History Last Taken Unknown] loperamide 2 mg capsule 2 mg PO DAILY diarrhea 10/13/21 [History Last Taken Unknown] brimonidine 0.2 %-timolol 0.5 % eye drops (Combigan) 1 drp BID left eye 01/19/22 [History Last Taken Unknown] citalopram 10 mg tablet 10 mg PO QHS depression 01/19/22 [History Last Taken Unknown] lisinopril 20 mg tablet 20 mg PO DAILY bp 01/19/22 [History Last Taken Unknown] lorazepam 0.5 mg tablet 0.5 mg PO Q6H restlessness 01/19/22 [History Last Taken Unknown] melatonin 5 mg tablet 5 mg PO QHS sleep 01/19/22 [History Last Taken Unknown] potassium chloride 20 mEq tablet,extended release 20 meq PO DAILY supplement 01/19/22 [History Last Taken Unknown] risperidone 0.5 mg tablet 0.5 mg PO QHS behavior 01/19/22 [History Last Taken Unknown] Klor-Con M20 20 meq PO.IVFORM DAILY hypokalemia 01/28/22 [History Last Taken Unknown] Milk of Magnesia 30 ml PO.IVFORM DAILY PRN Constipation 01/28/22 [History Last Taken Unknown] bisacodyl 10 mg rectal suppository 10 mg [place] DAILY PRN Constipation 01/28/22 [History Last Taken Unknown] ipratropium 0.5 mg-albuterol 3 mg (2.5 mg base)/3 mL nebulization soln 3 ml inhalation Q6H.RT sob 01/28/22 [History Last Taken Unknown] mineral oil 118 ml [place] DAILY PRN Constipation 01/28/22 [History Last Taken Unknown] ondansetron HCl 8 mg tablet 8 mg PO Q8H nausea 01/28/22 [History Last Taken Unknown] sennosides 8.6 mg-docusate sodium 50 mg tablet (Stool Softener-Stimulant Laxative) 2 tab PO BID stool softner 01/28/22 [History Last Taken Unknown] tramadol 50 mg tablet 50 - 100 mg PO Q6H PRN PRN Pain Score 4-10 01/28/22 [History Last Taken Unknown] Allergy/AdvReac Type Severity Reaction Status Date / Time Sulfa (Sulfonamide Allergy Unknown Verified 01/28/22 19:24 Antibiotics) morphine AdvReac Other Verified 01/28/22 19:24 oxycodone HCl [From Percocet] AdvReac Other Verified 01/28/22 19:24 Family History Mother COPD (chronic obstructive pulmonary disease) Father COPD (chronic obstructive pulmonary disease) Surgical History History of surgery on lower extremity S/P TURP Status post tonsillectomy and adenoidectomy Social History household members: none housing: [facility] Smoking Status: Former smoker how long ago did patient quit smoking: Quit tobacco use 10 years prior, smoked ~ 2-3 ppd since late teens. alcohol intake: former details: Recovered alcoholic, > 30 years sobriety, noted start in the late 80s. ROS Review of Systems ROS Unobtainable: other Details: Pertinent positives and pertinent negatives that could be provided by patient's family is as noted in HPI. All other systems were reviewed by patient's family and they did not know or they were negative. Vital Signs Vital Signs Vital Signs: 01/28/22 19:15 01/28/22 19:19 01/28/22 19:19 Temperature 99.4 F H 99.4 F H Temperature Source Axillary Axillary Pulse Rate 110 H 110 H Respiratory Rate 22 H 22 H Respiratory Pattern Tachypnea Blood Pressure 129/67 H 129/67 H Blood Pressure Mean 87 87 Pulse Ox 95 95 Oxygen Delivery Method Non-Rebreather Non-Rebreather Oxygen Flow Rate (L/min) 15 15 01/28/22 19:59 01/28/22 19:59 01/28/22 20:01 Temperature 99.4 F H Temperature Source Axillary Pulse Rate Respiratory Rate Respiratory Pattern Blood Pressure Blood Pressure Mean Pulse Ox 92 91 Oxygen Delivery Method Nasal Cannula Nasal Cannula Oxygen Flow Rate (L/min) 2 3 01/28/22 20:10 01/28/22 20:10 01/28/22 20:19 Temperature 99.2 F H Temperature Source Axillary Pulse Rate 110 H Respiratory Rate 27 H 30 H Respiratory Pattern Blood Pressure 110/69 Blood Pressure Mean 82 Pulse Ox 85 94 95 Oxygen Delivery Method Nasal Cannula Non-Rebreather Non-Rebreather Oxygen Flow Rate (L/min) 6 15 15 01/28/22 21:01 01/28/22 21:01 Temperature 99.2 F H 99.2 F H Temperature Source Axillary Axillary Pulse Rate 99 Respiratory Rate 29 H Respiratory Pattern Blood Pressure 105/66 Blood Pressure Mean 79 Pulse Ox 98 Oxygen Delivery Method Non-Rebreather Oxygen Flow Rate (L/min) 15 Weight Weight: 63.2 kg Body Mass Index (BMI) 22.4 Physical Exam Narrative Physical exam: General: Well-nourished, well-developed. Head: Normocephalic, atraumatic, no tenderness Eyes: Vision is grossly intact. Does not follow commands to check extraocular movements ENT, no trauma, moist mucous membranes, no rhinorrhea Neck: Nontender, No deformities CVS: Tachycardia. S1-S2 present. No murmur, gallop or rub. Respiratory : Rales, chest wall nontender, mild wheezing Abdomen: Soft, nontender, Bowel sounds hypoactive : Deferred Back: Nontender, no CVA tenderness,. Extremities: Nontender full range of motion, no trauma Skin: Normal color, no trauma, abrasions Neuro: Alert, non verbal Psychiatry: Normal mood. Normal affect. Results Lab / Micro Data Result Diagrams: 01/28/22 19:25 01/28/22 19:25 Labs: Laboratory Results - last 24 hr 01/28/22 19:25: Ammonia 43.0 H 01/28/22 19:25: WBC 27.0 H, RBC 4.21 L, Hgb 12.7 L, Hct 40.6, MCV 96.4 H, MCH 30.2, MCHC 31.3 L, RDW Std Deviation 48.9 H, RDW Coeff of Jj 14.1, Plt Count 638 H, MPV 10.8, Immature Gran % (Auto) 1.000 H, Neut % (Auto) 90.5 H, Lymph % (Auto) 3.6 L, [place] % (Auto) 4.4, Eos % (Auto) 0.2, Baso % (Auto) 0.3, Absolute Neuts (auto) 24.5 H, Absolute Lymphs (auto) 0.98, Nucleated RBC % 0, Differential Comment SCANNED 01/28/22 19:25: PT 14.5, INR 1.2, APTT 27.3 01/28/22 19:25: Sodium 150 H, Potassium 4.2, Chloride 116 H, Carbon Dioxide 29.0, Anion Gap 5, BUN 28 H, Creatinine 0.99, Estim Creat Clear Calc 54.97, Est GFR (MDRD) Af Amer 94, Est GFR (MDRD) Non-Af 77, BUN/Creatinine Ratio 28.2 H, Glucose 201 H, Calcium 8.7, Total Bilirubin 0.80, AST 11 L, ALT 29, Alkaline Phosphatase 103, Troponin I High Sens 56, Total Protein 6.9, Albumin 2.7 L, Globulin 4.2, Albumin/Globulin Ratio 0.6 L 01/28/22 19:25: Lactic Acid 1.6 Radiology Impression Abdomen/Pelvis CT 01/28/22 19:40 IMPRESSION: (NOT LISTED IN ORDER OF SIGNIFICANCE) Esophageal wall thickening may suggest an esophagitis. There is diffuse gastric distention. This may be related to partial gastric outlet obstruction or gastroparesis. The cause of the obstruction is not identified. NG tube placement is recommended. There are bilateral pleural effusions. There is bilateral pneumonia. There is a solitary gallstone. There are multiple colonic diverticula consistent with diverticulosis.Other findings as above. Electronically Signed: Vince Brito MD at 21:29 EDT , Chest CTA 01/28/22 19:40 IMPRESSION: 1. No demonstrated pulmonary embolism or arterial dissection. 2. There is bilateral pneumonia. There are bilateral pleural effusions. 3. There is diffuse gastric distention. This may be related to partial gastric outlet obstruction or gastroparesis. The cause of the obstruction is not identified. NG tube placement is recommended. Electronically Signed: Vince Brito MD at 21:33 EDT , Chest X-Ray 01/28/22 20:08 IMPRESSION: Partially visualized diffuse gaseous distention of the area of the upper abdomen. CT can better evaluate. Electronically Signed: Vince Brito MD at 20:30 EDT , Assessment & Plan Assessment/Plan (1) Sepsis: (2) Pneumonia: (3) Bowel obstruction: (4) Hypernatremia: PLAN: Plan Sepsis secondary to pneumonia/Acute respiratory failure The patient presented with sepsis due to (pneumonia) with acute sepsis related organ dysfunction as evidenced by (acute hypoxemic respiratory failure). SIRS criteria: Highest respiratory rate of 30; Heart rate 99; 110 on presentation WBC of 27,000 Lactate acid is 1.7 Platelet of 638; reactive. Bandemia of 1.0%. Blood Cx X2 ordered at the ED; Follow. Urinalysis is unremarkable. Urine Cx ordered at the ED; follow Chest CTA was visualized and independently interpreted; and I agree with radiology interpretation of of bilateral pneumonia. Likely aspiration in the se tting of small bowel obstruction. Vancomycin and Zosyn ordered. MRSA ordered. Strep pneumoniae antigen and Legionella urine antigen ordered. Vancomycin and Zosyn ordered Trend CBC and BMP Gastric outlet obstruction Abdomen/pelvis CT with diffuse gastric distention. Radiology this could be gastric outlet obstruction or gastroparesis. NG tube unable to be placed at the ED. Family does not want any surgical intervention otherwise. ED doc discussed with General Surgery and there is no further recommendations. does not want attempts of NG placement as it is deemed traumatic to patient. NPO Esophagitis; coffee ground emesis CT abdomen with esophageal thickening Protonix ordered. Trend CBC Dehydration Patient with hypernatremia; hyperchloremia and elevated BUN. Normal saline IV hydration ordered. Trend BMP. DVT Prophylaxis: SCD ordered. Charges/Coding Visit Charges Inpatient E&M: 72846 Init Hosp L3
[2022-01-28] MEDS: Oxymetazoline 0.05% 1 SPRAY SPRAY.BTL 2 SPRAY NASAL (22:00)
[2022-01-28 22:02] LABS: Bacteria 0 SEEN /hpf (None Seen); Mucous, Urine 0 SEEN /hpf (<or=2+); Red Blood Cells-Urine 0 SEEN /hpf (0-5); Squamous Epithelial Cells - UA 0 SEEN /hpf (0-5)
[2022-01-28 22:06] LABS: Color, Urine Yellow (Yellow); Glucose, Dipstick Normal (Normal); Ketone-Dipstick Negative (Negative); Leukocyte Esterase-Dipstick 25 /ul (Negative); Nitrite-Dipstick Negative (Negative); Occult Blood-Urine Negative /ul (Negative); Protein-Dipstick 30 mg/dl (Negative); Urine Bilirubin Dipstick Negative (Negative); Urine Clarity Clear (Clear); Urine Urobilinogen 1 mg/dl (Normal); Urine pH 6.5 (5.0 - 8.0)
[2022-01-28 22:14] LABS: White Blood Cells 0-5 SEEN /hpf (0-5)
[2022-01-28] MEDS: Ondansetron 4 MG/2 ML Vial IV (22:20)
--- NOTE | 2022-01-28 22:23 | RAD_ITS ---
We are attempting to reach an attending provider to discuss findings. An addendum with communication details will be sent when the communication is complete. EXAM: XR ABDOMEN, 1 VIEW CLINICAL INDICATION: NG Insertion TECHNIQUE: Frontal supine view of the abdomen/pelvis. This report was created using Share[employer] report generation technology. COMPARISON: CT abdomen and pelvis 8:48 PM the same day. Prominent distention of the stomach with fluid and gas, small right pleural effusion, mild-moderate patchy opacities in the left lower lobe, moderate airway thickening in the lung bases were noted on review of the CT, with low-attenuation apparent edema in the posterior mediastinum and distention of the thoracic esophagus to at least 1.7 cm AP, suspicion of esophagitis. FINDINGS: LOWER THORAX: The chest is not fully included, exam is centered over the lung bases and upper abdomen. No definite infiltrates or effusions at the lung bases on the portable upright exam. GASTROINTESTINAL TRACT: Unremarkable. Non-obstructive. No bowel or stomach distention. ORGANS: Unremarkable as visualized. No organomegaly. No abnormal calcifications. BONES/JOINTS: No acute pathology. SOFT TISSUES: No acute pathology. TUBES, LINES AND DEVICES: Enteric tube tip projects over the medial right lower lobe, apparently in the distal right lower lobe airways, side branch in the proximal right lower lobe airway. The kvng is not fully included.. RAD/Abdomen Single View (Portable) IMPRESSION: 1. Malpositioned enteric tube, tip in distal right lower lobe airway near the diaphragm, at least 11 cm distal to the expected region of the kvng. 2. Prominent gastric air-fluid level partially projecting over the heart. Evidence of esophagitis and prominent stomach distention on the prior CT of the chest including the upper abdomen. 3. Upper lung nagel are not included on this exam. Electronically Signed: Sachi Rebollar MD at 23:41 EDT ,
--- NOTE | 2022-01-28 22:48 | ED.RN ---
x5 attempts made to get NG tube in by numerous nurses. Pt unable to follow commands to swallow or tilt head forward. Unable to follow any commands. Pt vomiting dark emesis numerous times. Dr. Pandey updated.
[2022-01-28] MEDS: 0.9% Normal Saline 1,000 ML 100 ML IV (23:30)
--- NOTE | 2022-01-28 23:36 | PCM.RX.CS ---
Consult Pharmacy has been consulted to manage selected antiobiotic: Vancomycin Type of Consult: New start Suspected Infection: Sepsis, Pneumonia Prior Doses of Antibiotics Received/Current Regimen: Medications Vancomycin HCl () 500 mg in 100 mls @ 100 mls/hr IV Q12H SHARONDA Discontinued Medications Vancomycin HCl (Vancomycin) 1,000 mg in 200 mls @ 200 mls/hr 15 mg/kg (1000 mg) IV X1 ONE Stop: 01/28/22 20:39 Last Admin: 01/28/22 22:56 Dose: Infused Labs: Sodium 150 mmol/L (136-145) H 01/28/22 19:25 Potassium 4.2 mmol/L (3.5-5.1) 01/28/22 19:25 Chloride 116 mmol/L (98-107) H 01/28/22 19:25 Carbon Dioxide 29.0 mmol/L (21.0-32.0) 01/28/22 19:25 Anion Gap 5 (5-15) 01/28/22 19:25 BUN 28 mg/dL (7-18) H 01/28/22 19:25 Creatinine 0.99 mg/dL (0.70-1.30) 01/28/22 19:25 Est GFR (MDRD) Af Amer 94 mL/min (>60) 01/28/22 19:25 Est GFR (MDRD) Non-Af 77 mL/min (>60) 01/28/22 19:25 BUN/Creatinine Ratio 28.2 RATIO (10-20) H 01/28/22 19:25 Glucose 201 mg/dL (74-106) H 01/28/22 19:25 Weight used for dosin.2 kg Estimated Creatinine Clearance: 55 Goal Trough: 15-20 mcg/mL Pharmacy Plan for Drug Dosing: Pharmacy Service will continue to monitor and adjust dosing as required. Follow-Up Labs: Trough Vancomycin Labs to be done on [date and time ordered]: 01/30/22 @0830
[2022-01-29] VITALS (18 sets, daily range): BP systolic 96–133; BP diastolic 50–61; PULSE 78–104; RESP 18–30; TEMP 37.4–37.9; O2SAT 82–99
[2022-01-29] MEDS: Ipratropium/Albuterol Sulfate 3 ML AMPUL.NEB INHALATION ×2 (01:10→07:25)
[2022-01-29 03:17] LABS: M R Staph aureus DNA By PCR Negative (Negative); Probe Check PASS; Specimen Processing Control PASS
[2022-01-29 07:15] LABS: Absolute Lymphocyte Count 1.05 X10^3/uL (0.83-4.51); Absolute Neutrophil Count 27.4 X10^3/uL (2.0-7.7); Basophil# 0.07 X10^3/uL; Basophil% 0.2 % (0-1); Eosinophil# 0.01 X10^3/uL; Hematocrit 35.8 % (40-54); Hemoglobin 11.2 g/dL (13.0-16.5); Lymphocyte # 1.05 X10^3/ul (0.83-4.51); Lymphocyte % 3.5 % (19-41); Mean Corp Hgb Conc 31.3 g/dL (32-36); Mean Corpuscular Hgb 30.5 pg (27.0-32.0); Mean Corpuscular Volume 97.5 fL (80-94); Mean Platelet Vol. 10.5 fl (6.2-12.0); Monocyte# 1.51 X10^3/uL; NRBC Flagged by Analyzer 0 % (0-5); Neutrophil # 27.39 X10^3/uL (2.7-7.7); Neutrophil % 90.2 % (47-70); POSITIVE COUNT YES; POSITIVE DIFFERENTIAL YES; Platelet Count 501 K/mm3 (150-450); RBC Distribution Width CV 14.2 % (11.6-14.6); RBC Distribution Width SD 50.1 fl (35.1-43.9); Red Blood Count 3.67 M/mm3 (4.6-6.2); White Blood Count 30.4 K/mm3 (4.4-11.0)
[2022-01-29 07:20] LABS: Differential Indicated SCAN CRITERIA MET
[2022-01-29 07:46] LABS: Anion Gap 1 (5-15); BUN 30 mg/dL (7-18); BUN/Creat Ratio 27.8 RATIO (10-20); Calcium,Total 8.2 mg/dL (8.5-10.1); Chloride 116 mmol/L (98-107); Creatinine, Serum 1.08 mg/dL (0.70-1.30); EST Glomerular Filtration Rate 70 mL/min (>60); Est Glom Filt Rate - Afr Amer 85 mL/min (>60); Estimated Creatinine Clearance 50.15 ml/min; Glucose 164 mg/dL (74-106); Potassium 3.9 mmol/L (3.5-5.1); Sodium Level 150 mmol/L (136-145)
--- NOTE | 2022-01-29 08:12 | NURSING ---
Addendum entered by Lolis Wu 01/29/22 12:04: unable to place telemetry monitoring as ordered d/t picking,restlessness Original Note: continuous pulse ox monitoring alarming 82%. upon walking into room- pt holding his VM in his hand and pulling if off, pt pulling on gown. speech remains unclear. pt with eyes open. pt with firm grasp/smash hand on oxygen mask. soft stuffed animal given for pt to hold to help distract him from pulling at his oxygen mask/tubing/pulse ox cording. within less than 5 minutes pt spo2 on 50% venti mask is fluctuates between 89-90%. Blind is open to help with circadian rhythm.
--- NOTE | 2022-01-29 09:06 | CASEMGMT ---
Social Work Pt is readmission and is currently at skilled level of care at [facility]. Phone call to Siria at [facility] and she confirms level of care and that pt can return if appropriate. . Prior to last admission, pt was on hospice services through [facility]. At that time services were revoked to come to hospital and hospice services have not been restarted. SW spoke with physician who is requesting family meeting. Call placed to Pt Mckayla Barrera who states she will be at hospital around 9:30 and can meet with physician at anytime. Physician updated. Plan: TBD after family meeting with physician NISHA Samson
[2022-01-29] MEDS: Timolol 0.5% 5ML OPTH.BTL 1 DRP LEFT EYE (11:07)
[2022-01-29] MEDS: BRIMONIDINE 0.2% 5ML BOTTLE 1 DRP LEFT EYE (11:07)
--- NOTE | 2022-01-29 11:35 | RAD_ITS ---
STUDY: X-RAY - ABDOMEN/PELVIS REASON FOR EXAM: Male, 76 years old. Bowel obstruction TECHNIQUE: AP supine and decubitus views of the abdomen and pelvis. COMPARISON: Comparison is made with prior study 01/28/2022. FINDINGS: Increased markings at the left lung base suggestive of atelectasis. Large air-fluid level within the stomach. Gas and fecal material are seen in the colon. There is no demonstrated free abdominal air. The visualized liver, spleen and kidneys are grossly normal in size and morphology. Normal soft tissue structures. There are diffuse degenerative changes of the visualized lumbar spine. Dextroscoliosis. Dextroscoliosis. The patient is status post ORIF of the right intratrochanteric fracture. RAD/Abd Decub and/or Erect(Portabl IMPRESSION: Large air-fluid level within the stomach. Electronically Signed: Saurav Cisneros MD at 14:24 EDT ,
--- NOTE | 2022-01-29 11:35 | RAD_ITS ---
STUDY: X-RAY CHEST REASON FOR EXAM: Male, 76 years old. Aspiration pneumonia TECHNIQUE: Single AP portable view of the chest. COMPARISON: Comparison is made with prior study dated 01/28/2022. FINDINGS: Increased markings at the left lung base suggestive of left basilar atelectasis and/or early infiltrate. There is no demonstrated pleural abnormality. Normal size heart. Normal mediastinum and tonie. Normal visualized pulmonary arteries. Normal visualized aortic arch and descending thoracic aorta. Normal visualized thoracic spine. There is degenerative osteoarthritis of the bilateral shoulders. There is no demonstrated abnormality of the visualized soft tissue structures of the upper abdomen. RAD/Chest 1 View (Portable) IMPRESSION: Increased markings at the left lung base. Electronically Signed: Saurav Cisneros MD at 14:25 EDT ,
[2022-01-29] MEDS: 0.9% Normal Saline 1,000 ML 100 ML IV (11:56)
--- NOTE | 2022-01-29 12:07 | CASEMGMT ---
Addendum entered by Jolanta Byrd 01/29/22 16:26: Social Work Pt assessed by [facility] Nurse and is accepted into the [facility]. Pts nurse is aware and physician updated. [facility] will provide transportation to [facility]. Discharge instructions faxed to [facility]. NISHA Samson Addendum entered by Jolanta Byrd 01/29/22 15:35: Social Work Physician reports that xray shows no change and therefore physician recommending SW update pt and recommending referral for inpatient hospice unit. SW met with pt Mckayla and informed of information from physician. Pt is agreeable to referral to [facility] for [facility]. Phone call to [facility] and spoke with Milagro. SW explained that pt was previously a pt and pt would like to sign up for services again at this time and physician would like pt evaluated to [facility]. Milagro states she will send a nurse out to evaluate pt for the [facility] and have sign papers. Pt , nurse and physician updated. Clinicals faxed to [facility]. NISHA Samson Original Note: Social Work SW, Physician and nurse met with Pt Mckayla and daughter Anju for family meeting regarding goals of care. After physician explained pt medical situation Pt Mckayla expressing understanding and desire to keep pt comfortable. Physician explained option of hospice services including inpatient hospice unit and custodial with hospice. Pt is agreeable to both options and outcome of KUB will determine pts disposition. If pt is more appropriate for custodial with hospice, pt confirms she would like pt to return to [facility]. Emotional support provided to pt family. [facility] will follow up to assist with d/c planning after results are determined by physician. NISHA Samson
--- NOTE | 2022-01-29 12:14 | CASEMGMT ---
Social Work Pt does have a HCPOA on file naming his Mckayla Barrera. Per last admission, pt states pt does have a living will and she has looked for the document and will bring in if she can find it. Due to cognitive limitations, pt is not able to complete new document. NISHA Samson
--- NOTE | 2022-01-29 13:23 | CHAPLAIN ---
Type of Pastoral Visit _x__ Initial Visit ___ Follow-up Visit ___ On-call Visit ___ General Patient Visit ___ Spiritual Assessment ___ Family Conference ___ Bereavement ___ Rapid Response ___ Code Blue ___ Other (describe below) Pastoral Care Referral From __x_ Patient ___ Family ___ Nurse ___ Physician ___ Harp Regulator ___ Orthopedic Radiologic Technologist ___ Other (describe below) Sacrament/Intervention ___ Active listening ___ Anointing ___ Faith ___ Bereavement ___ Communion ___ Yolanda exploration ___ ___ Life review _x__ Prayer ___ Reconciliation ___ Sacrament of Sick _x__ Supportive presence ___ Wedding ___ Other (describe below) Pastoral Comments BUSINESS SPECIALIST is just leaving the room; pt is awake and follows with his eyes but does not speak or carry on conversation; pt mumbles or grunts at times during the visit; this donor services team leader sat at bedside and just softly talked to patient with affirming words; offered a prayer for patient audibly;
[2022-01-29] MEDS: Bisacodyl 10 MG Suppository RC (13:56)
[2022-01-29] MEDS: LORazepam 2 MG/ML Bottle 0.5 MG SL ×2 (15:19→16:53)
--- NOTE | 2022-01-29 15:43 | DS.PCM_ITS ---
Providers Date of Admission: 01/28/22 Date of Discharge: 01/29/22 Primary Care Physician: Dr. Loren Major MD Reason For Visit: SEPSIS 2NDARY TO PNEUMONIA, BOWEL OBSTRUCTION Diagnosis Discharge Diagnosis (1) Sepsis: Status: Acute Code(s): A41.9 - Sepsis, unspecified organism (2) Pneumonia: Status: Acute Code(s): J18.9 - Pneumonia, unspecified organism (3) Bowel obstruction: Status: Acute Code(s): K56.609 - Unspecified intestinal obstruction, unspecified as to partial versus complete obstruction (4) Hypernatremia: Status: Acute Code(s): E87.0 - Hyperosmolality and hypernatremia Medications at Discharge Home Medications furosemide 20 mg tablet 40 mg PO DAILY edema 10/13/21 loperamide 2 mg capsule 2 mg PO DAILY diarrhea 10/13/21 brimonidine 0.2 %-timolol 0.5 % eye drops (Combigan) 1 drp BID left eye 01/19/22 citalopram 10 mg tablet 10 mg PO QHS depression 01/19/22 lisinopril 20 mg tablet 20 mg PO DAILY bp 01/19/22 lorazepam 0.5 mg tablet 0.5 mg PO Q6H restlessness 01/19/22 melatonin 5 mg tablet 5 mg PO QHS sleep 01/19/22 potassium chloride 20 mEq tablet,extended release 20 meq PO DAILY supplement 01/19/22 risperidone 0.5 mg tablet 0.5 mg PO QHS behavior 01/19/22 Klor-Con M20 20 meq PO.IVFORM DAILY hypokalemia 01/28/22 Milk of Magnesia 30 ml PO.IVFORM DAILY PRN Constipation 01/28/22 bisacodyl 10 mg rectal suppository 10 mg KS DAILY PRN Constipation 01/28/22 ipratropium 0.5 mg-albuterol 3 mg (2.5 mg base)/3 mL nebulization soln 3 ml inhalation Q6H.RT sob 01/28/22 mineral oil 118 ml KS DAILY PRN Constipation 01/28/22 ondansetron HCl 8 mg tablet 8 mg PO Q8H nausea 01/28/22 sennosides 8.6 mg-docusate sodium 50 mg tablet (Stool Softener-Stimulant Laxative) 2 tab PO BID stool softner 01/28/22 tramadol 50 mg tablet 50 - 100 mg PO Q6H PRN PRN Pain Score 4-10 01/28/22 Hospital Course Operations None Procedures None Summary of Care Provided Minutes Spent on Discharge: 35 Hospital Course: 76-year-old male with past medical history of COPD, severe dementia, resident seen [facility], who recently had hip replacement. Patient presented with nausea and vomiting that started the day before admission. This was associated with hypoxia. Patient's oxygen saturation was 83% on room air requiring 15 L nonrebreather mask. Work-up in the emergency room showed bilateral pneumonia possibly secondary to aspiration. CT of the abdomen pelvis showed diffuse gastric distention with partial gastric outlet obstruction. An attempt was made at putting an NG tube but family felt that this was traumatic for the patient. He did not want any surgical intervention. Patient was in hospice until patient's recent admission for hip fracture where patient was discharged to [facility] with intention of going back to hospice. Upon further discussion with the family, repeat KUB as well as chest x-ray did not show any improvement. Patient continued to deteriorate in terms of oxygen. He was discharged to inpatient hospice facility. Physical Exam Narrative See progress note of the day Medical Records Data Medical Nutrition Assessment Dietitian: Malnutrition Criteria Met Start: 01/29/22 10:58 Freq: Status: Active Protocol: Document 01/29/22 10:58 (Rec: 01/29/22 10:58 [id number]) Nutrition Malnutrition Evidence of Malnutrition Exists Yes Malnutrition (severe): Chronic Evidenced By Weight Loss (Severe),Physical Changes (Severe) Clinical Problem Chronic Disease or Condition Related Malnutrition Etiology (severe) related to suboptimal appetite and dementia Signs/Symptoms as evidenced by 14% weight loss in 5 months and severe temporal and orbital muscle and fat loss Status Active Problem Recommendation Dietitian Recommendations/Changes ADAT to Low Fiber diet when medically able. Will order Ensure Enlive once diet has advanced. Weight / BMI Weight Weight: 62.9 kg Body Mass Index (BMI) 21.7 ABG / Lab / Microbiology Data Result Diagrams: 01/29/22 06:30 01/29/22 06:30 Laboratory: Laboratory Results - last 24 hr 01/28/22 19:25: Ammonia 43.0 H 01/28/22 19:25: WBC 27.0 H, RBC 4.21 L, Hgb 12.7 L, Hct 40.6, MCV 96.4 H, MCH 30.2, MCHC 31.3 L, RDW Std Deviation 48.9 H, RDW Coeff of Jj 14.1, Plt Count 638 H, MPV 10.8, Immature Gran % (Auto) 1.000 H, Neut % (Auto) 90.5 H, Lymph % (Auto) 3.6 L, [place] % (Auto) 4.4, Eos % (Auto) 0.2, Baso % (Auto) 0.3, Absolute Neuts (auto) 24.5 H, Absolute Lymphs (auto) 0.98, Nucleated RBC % 0, Differential Comment SCANNED 01/28/22 19:25: PT 14.5, INR 1.2, APTT 27.3 01/28/22 19:25: Sodium 150 H, Potassium 4.2, Chloride 116 H, Carbon Dioxide 29.0, Anion Gap 5, BUN 28 H, Creatinine 0.99, Estim Creat Clear Calc 54.97, Est GFR (MDRD) Af Amer 94, Est GFR (MDRD) Non-Af 77, BUN/Creatinine Ratio 28.2 H, Glucose 201 H, Calcium 8.7, Total Bilirubin 0.80, AST 11 L, ALT 29, Alkaline Phosphatase 103, Troponin I High Sens 56, Total Protein 6.9, Albumin 2.7 L, Globulin 4.2, Albumin/Globulin Ratio 0.6 L 01/28/22 19:25: Lactic Acid 1.6 01/28/22 21:50: Urine Color Yellow, Urine Clarity Clear, Urine pH 6.5, Ur Specific [place] 1.010, Urine Protein 30 H, Urine Glucose (UA) Normal, Urine Ketones Negative, Urine Occult Blood Negative, Urine Nitrite Negative, Urine Bilirubin Negative, Urine Urobilinogen 1 H, Ur Leukocyte Esterase 25 H, Urine RBC 0 SEEN, Urine WBC 0-5 SEEN, Ur Squamous Epith Cells 0 SEEN, Urine Bacteria 0 SEEN, Urine Mucus 0 SEEN 01/28/22 23:58: MRSA (PCR) Negative 01/29/22 06:30: WBC 30.4 H*, RBC 3.67 L, Hgb 11.2 L, Hct 35.8 L, MCV 97.5 H, MCH 30.5, MCHC 31.3 L, RDW Std Deviation 50.1 H, RDW Coeff of Jj 14.2, Plt Count 501 H, MPV 10.5, Immature Gran % (Auto) 1.100 H, Neut % (Auto) 90.2 H, Lymph % (Auto) 3.5 L, [place] % (Auto) 5.0, Eos % (Auto) 0.0, Baso % (Auto) 0.2, Absolute Neuts (auto) 27.4 H, Absolute Lymphs (auto) 1.05, Nucleated RBC % 0, Diff Path Review October01/29/22 06:30: Sodium 150 H, Potassium 3.9, Chloride 116 H, Carbon Dioxide 33.0 H, Anion Gap 1 L, BUN 30 H, Creatinine 1.08, Estim Creat Clear Calc 50.15, Est GFR (MDRD) Af Amer 85, Est GFR (MDRD) Non-Af 70, BUN/Creatinine Ratio 27.8 H, Glucose 164 H, Calcium 8.2 L Microbiology: Microbiology 01/28/22 23:58 Urine Catheter - Catheter Streptococcus pneumoniae Antigen (M - Final 01/28/22 23:58 Urine Catheter - Timmons Legionella Antigen - Final 01/28/22 00:55 Nasal Secretion SARS-CoV-2 Antigen (Rapid) - Final Radiography Diagnostic Testing: Radiology Impression Abdomen/Pelvis CT 01/28/22 19:40 IMPRESSION: (NOT LISTED IN ORDER OF SIGNIFICANCE) Esophageal wall thickening may suggest an esophagitis. There is diffuse gastric distention. This may be related to partial gastric outlet obstruction or gastroparesis. The cause of the obstruction is not identified. NG tube placement is recommended. There are bilateral pleural effusions. There is bilateral pneumonia. There is a solitary gallstone. There are multiple colonic diverticula consistent with diverticulosis.Other findings as above. Electronically Signed: Vince Brito MD at 21:29 EDT , Chest CTA 01/28/22 19:40 IMPRESSION: 1. No demonstrated pulmonary embolism or arterial dissection. 2. There is bilateral pneumonia. There are bilateral pleural effusions. 3. There is diffuse gastric distention. This may be related to partial gastric outlet obstruction or gastroparesis. The cause of the obstruction is not identified. NG tube placement is recommended. Electronically Signed: Vince Brito MD at 21:33 EDT , Chest X-Ray 01/28/22 20:08 IMPRESSION: Partially visualized diffuse gaseous distention of the area of the upper abdomen. CT can better evaluate. Electronically Signed: Vince Brito MD at 20:30 EDT , KUB X-Ray 01/28/22 22:23 IMPRESSION: 1. Malpositioned enteric tube, tip in distal right lower lobe airway near the diaphragm, at least 11 cm distal to the expected region of the kvng. 2. Prominent gastric air-fluid level partially projecting over the heart. Evidence of esophagitis and prominent stomach distention on the prior CT of the chest including the upper abdomen. 3. Upper lung nagel are not included on this exam. Electronically Signed: Sachi Rebollar MD at 23:41 EDT , ADDENDUM: 01/28/22 2352 IMPRESSION: 1. Malpositioned enteric tube, tip in distal right lower lobe airway near the diaphragm, at least 11 cm distal to the expected region of the kvng. 2. Prominent gastric air-fluid level partially projecting over the heart. Evidence of esophagitis and prominent stomach distention on the prior CT of the chest including the upper abdomen. 3. Upper lung nagel are not included on this exam. N.B. : The above Results were Read Back by Sachi Rebollar MD to Alvaro Pandey DO, and understanding confirmed on 01/28/2022 23:45:25 (ET). Electronically Signed: Sachi Rebollar MD at 23:41 EDT , Abdomen X-Ray 01/29/22 11:35 IMPRESSION: Large air-fluid level within the stomach. Electronically Signed: Saurav Cisneros MD at 14:24 EDT , Chest X-Ray 01/29/22 11:35 IMPRESSION: Increased markings at the left lung base. Electronically Signed: Saurav Cisneros MD at 14:25 EDT , D/C Instructions Discharge Diet: No restrictions Meaningful Use Info Meaningful Use Diagnoses (Choose all that apply): None applicable Discharge Plan Admission Admit Date/Time: 01/28/22 21:53 Primary Reason for Your Visit: Aspiration pneumonia/partial gastric obstruction Attending Provider: Emy Maier Primary Care Provider: Loren Major Consulting Providers: Willis العراقي Discharge Orders/Prescriptions Prescriptions: Continued loperamide 2 mg capsule 2 mg PO DAILY furosemide 20 mg tablet 40 mg PO DAILY Label Comments: take 1 tablet by mouth once daily citalopram 10 mg tablet 10 mg PO QHS Label Comments: TAKE 1 TABLET BY MOUTH ONCE DAILY lorazepam 0.5 mg tablet 0.5 mg PO Q6H Label Comments: TAKE 1 TABLET BY MOUTH TWICE DAILY NEEDED FOR AGITATION FOR UP TO 30 DAYS risperidone 0.5 mg tablet 0.5 mg PO QHS lisinopril 20 mg Tablet 20 mg PO DAILY potassium chloride 20 mEq Tablet Extended Release 20 meq PO DAILY brimonidine-timolol [Combigan] 0.2-0.5 % Drops 1 drp BID melatonin 5 mg Tablet 5 mg PO QHS ipratropium-albuterol 0.5 mg-3 mg(2.5 mg base)/3 mL solution for nebulization 3 ml inhalation Q6H.RT sennosides-docusate sodium [Stool Softener-Stimulant Laxat] 8.6-50 mg tablet 2 tab PO BID tramadol 50 mg tablet 50 - 100 mg PO Q6H PRN PRN (Reason: Pain Score 4-10) ondansetron HCl 8 mg Tablet 8 mg PO Q8H mineral oil Enema 118 ml KS DAILY PRN (Reason: Constipation) bisacodyl 10 mg Suppository 10 mg KS DAILY PRN (Reason: Constipation) Klor-Con M20 20 meq PO.IVFORM DAILY Milk of Magnesia 30 ml PO.IVFORM DAILY PRN (Reason: Constipation) Referrals / Follow Up: Loren Major MD [Primary Care Provider] - Disposition Disposition (needs filled in before D/C Order can be placed): Hospice in Medical Facility Charges/Coding Visit Charges Inpatient E&M: 60310 Disch Hosp
--- NOTE | 2022-01-29 16:24 | NURSING ---
Hospice Nurse just done talking with family. states okay to send pt with saline lock and with farias catheter. Arranging immediate transportation to [facility]. Informed of order for enema, Hospice Nurse states transportation in route and doesn't want to delay [facility] transfer. pt currently restless, attempting to get oob, picking at stuff. will notify
--- NOTE | 2022-01-29 16:30 | CASEMGMT ---
Social Work Phone call to Siria Rossi updating that pt will not be returning but going to [facility]. NISHA Samson
[2022-01-30 14:15] LABS: Pathologist Review Reviewed
== END 2022-01-29 17:00 | disposition hospice, inpatient (51) | DRG 871 ==
LOC: ED 21:54 → MS3 22:15
PROVIDERS: Admitting Provider Hospitalist; Emergency Provider Student in an Organized Health Care Education/Training Program; PCP Family Medicine; Visit Provider Internal Medicine
DX: A41.9 Sepsis, unspecified organism (principal); J69.0 Pneumonitis due to inhalation of food and vomit; J96.01 Acute respiratory failure with hypoxia; E43 Unspecified severe protein-calorie malnutrition; K20.91 Esophagitis, unspecified with bleeding; E72.20 Disorder of urea cycle metabolism, unspecified; K31.1 Adult hypertrophic pyloric stenosis; E87.0 Hyperosmolality and hypernatremia; J90 Pleural effusion, not elsewhere classified; K92.0 Hematemesis; J44.9 Chronic obstructive pulmonary disease, unspecified; F03.90 Unspecified dementia, unspecified severity, without behavioral disturbance, psychotic disturbance, mood disturbance, and anxiety; E86.0 Dehydration; I10 Essential (primary) hypertension; E87.8 Other disorders of electrolyte and fluid balance, not elsewhere classified; E78.5 Hyperlipidemia, unspecified; Y95 Nosocomial condition; Z66 Do not resuscitate; Z51.5 Encounter for palliative care; Z68.21 Body mass index [BMI] 21.0-21.9, adult; Z79.899 Other long term (current) drug therapy; Z87.891 Personal history of nicotine dependence
CPT/HCPCS: 36415; 71045; 71275; 74018; 74019; 74177; 80048; 80053; 81001; 82140; 83605; 84484; 85025; 85610; 85730; 87040; 87086; 87426; 87449; 87641; 93005; 94640; 94762; 99251; 99285; J7030; Q9967; A4216; G0463; J2405